=== PATIENT | female | born 1945 | race Caucasian/White ===

== ENCOUNTER 2018-09-01 05:23 | Inpatient (IN) | payer MEDICARE, SELFPAY ==
[2018-08-17 11:05] VITALS: BP 146/60; PULSE 69; RESP 16; TEMP 36.8; O2SAT 98; BMI 26.1
[2018-08-17 12:18] LABS: Absolute Lymphocyte Count 1.94 X10^3/ul (0.83-4.51); Absolute Neutrophil Count 4.3 X10^3/uL (2.0-7.7); Basophil# 0.03 X10^3/uL; Basophil% 0.4 % (0-1); Eosinophil# 0.27 X10^3/uL; Eosinophils% 3.7 % (0-5); Hematocrit 37.7 % (37-47); Hemoglobin 12.2 g/dl (12.0-15.0); Lymphocyte # 1.94 X10^3/ul (4.0); Lymphocyte % 26.9 % (19-41); Mean Corp Hgb Conc 32.4 g/gl (32-36); Mean Corpuscular Hgb 30.7 pg (27.0-32.0); Mean Platelet Vol. 10.5 fl (6.2-12.0); Monocyte% 9.7 % (0-10); Neutrophil # 4.26 X10^3/uL (2.7-7.7); Neutrophil % 59.2 % (47-70); POSITIVE COUNT NO; POSITIVE DIFFERENTIAL NO; POSITIVE MORPHOLOGY NO; Platelet Count 199 K/mm3 (150-450); RBC Distribution Width SD 46.4 fl (35.1-43.9); Red Blood Count 3.97 M/mm3 (4.2-5.4); White Blood Count 7.2 K/mm3 (4.4-11.0)
[2018-08-17 12:48] LABS: Anion Gap 7 (5-15); BUN 13 mg/dL (7-18); BUN/Creat Ratio 17.3 RATIO (10-20); Calcium,Total 8.8 mg/dL (8.5-10.1); Chloride 107 mmol/L (98-107); Creatinine, Serum 0.75 mg/dL (0.55-1.02); EST Glomerular Filtration Rate 80 mL/min (>60); Est Glom Filt Rate - Afr Amer 96 mL/min (>60); Estimated Creatinine Clearance 34.91 ml/min; Glucose 90 mg/dL (74-106); Potassium 4.4 mmol/L (3.5-5.1); Sodium Level 143 mmol/L (136-145)
--- NOTE | 2018-08-18 20:56 | PCM.HP.BLA ---
History and Physical DATE OF SURGERY: 09/01/2018 SCHEDULED PROCEDURE: Left total knee arthroplasty HISTORY OF PRESENT ILLNESS: This is a 73-year-old female whose been having ongoing pain for several years. Her pain is been intermittent, aching, and sharp. She has increased pain with going up and down stairs and sitting for extended periods of time. She feels weakness in the right knee. She has increased pain with prolonged walking. Pain is over the medial joint line bilaterally. She does have start up pain. Patient states the pain does waken her at night. Patient has tried previous corticosteroid injections with only 3 months of relief. She has had multiple injections. She has also tried rest, heat, home exercises with minimal relief. She has tried ice and elevation with no relief in symptoms. She has tried oral medications consisting of ibuprofen and Tylenol with minimal relief. Patient denies previous surgery on both knees. She has tried a brace with no relief in symptoms. Patient currently denies any chest pain, shortness of breath, fevers chills, recent infections. Patient has a medical history pertinent for hypertension, asthma, previous heart catheterization in May 2017 followed by aortic valve replacement on June 30, 2017. We'll obtain surgical clearance from patient's technical solutions engineer. We're also obtaining surgical clearance from patient's primary care physician Dr. Greer. After failing conservative measures and discussing all treatment options with Dr. Ehsan Watts, the patient does wish to proceed with a left total knee arthroplasty. REVIEW OF SYSTEMS: ROS: Const: Denies anorexia, anxiety, change in appetite, fever, hard of hearing, vision problems and weight change. CV: Denies chest pain, heart murmur, irregular heartbeat and peripheral vascular disease. Resp: Reports asthma, but denies cough, pneumonia, sleep apnea, SOB, tuberculosis and wheezing. GI: Denies constipation, diarrhea, difficulty swallowing, heartburn, nausea, bloody stools and vomiting. : Urinary: denies incontinence. Musculo: Denies leg swelling, limp, trouble walking and weakness. Skin: Denies Raynaud's, history of shingles and tattoo. Neuro: Denies ambulatory dysfunction, dizziness, numbness/tingling and tremor. Psych: Denies anxiety, depression, insomnia, mental illness and stress. Fredy/Lymph: Reports anemia, but denies bleeding/bruising tendency and past transfusion. Reviewed, no changes. PAST MEDICAL HISTORY: Advance Care Plan: Other Directive, P.O.A. Effective Date: 06/25/2018 Other Directive, LIVING WILL Effective Date: 06/25/2018 PMH: Medical Problems: Arthritis, Asthma, High Blood Pressure Accidents: Fracture - (1997) LT LEG Surgical Hx: Carpal Tunnel Release Lt, Carpal Tunnel Release Rt Rotator Cuff Repair Lt - (2001) HOWARD Rotator Cuff Repair RT - (2001) HOWARD Cyst - (1965) OVARIAN RT Second Hammer Toe Repair - (09/03/2012) JWG @ [facility] Aortic Valve Replaced Tonsillectomy - ADENOIDS Anesthesia Complications: None Assistive Devices: None Reviewed and updated. 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 Personal Habits: Smoking: Patient has never smoked.Cigarette Use: Never.Alcohol: Denies use.Drug Use: Denies Use.Enjoy Exercising: Daily. Reviewed, no changes. VITALS: Ht: 60.5 Wt: 136lb Wt k.690 BMI: 26.1 BP: 170/88 Pulse: 68 Resp: 20 T: 98.0 T: 36.7C ALLERGIES: No Known Drug Allergy MEDICATIONS: Meloxicam 15 mg 1 by mouth every day, Advair Diskus 500/50 twice daily, Aspirin 81 mg 1 po EVERY OTHER DAY, Calcium/Vitamin D 600mg 1 tab PO tid, Arthromend With MSM 1 PO bid, Vitamin C 1000mg 1 tab PO bid, Trazodone HCL 50 mg 1 tab PO qhs, Vitamin E 400 mg 1 tab PO tid, Ibuprofen 200 mg 2 tablets po for pain prn, Tylenol 325 mg as needed, Tramadol HCL 50 mg 1-2 by mouth every 4-6 hours as needed pain, Gabapentin 400 mg 1 cap PO tid, Ferrous Sulfate 325 (65 Fe) MG 1 tab PO daily, Carvedilol 12.5 mg 1 1/2 PO bid, Cyclobenzaprine HCL 5 mg 1 tab PO bid, Montelukast Sodium 10 mg 1 by mouth every day, Pantoprazole Sodium 40 mg 1 tab PO daily, Breo Ellipta 100-25 mcg/Inh 1 puff PO daily, Chlorthalidone 25 mg 1 tab by mouth every morning, Lasix 20 mg 1 by mouth every day, Loratadine 10 mg one PO daily PRE-OP EXAM: General appearance:NORMAL Other: Eyes: Conjunctivae and lids: NORMAL Pupils: ERR Ears, Nose, Mouth, and Throat: NORMAL Other: Inspection of lips, teeth and gums: NORMAL Other: Neck: Examination of neck: no masses noted. Respiratory: Assessment of respiratory effort: NORMAL Other: Auscultation of lungs: clear to auscultation no wheezes, rhonchi or rales. Cardiovascular: Auscultation of heart: regular rate and rhythm, no murmurs, gallops or rubs. Exam of carotid arteries: NORMAL Other: Gastrointestinal: Exam of abdomen: soft, nontender, nondistended bowel sounds present. PHYSICAL EXAMINATION: Patient walks with an antalgic gait. Patient's left knee is cool to touch without erythema. Patient does have effusion of the left knee. There is tenderness to palpation of the medial joint line. Patient does have varus alignment. Range of motion lacks 5 of extension to 110 of flexion. Stable to varus valgus stress test. Sensation intact to light touch. Neurovascularly intact. IMAGING STUDIES: X-rays of bilateral knees reveal varus alignment with medial joint space narrowing, subchondral sclerosis, osteophyte formation consistent with severe tricompartmental osteoarthritis bilaterally. IMPRESSION: 1. Severe left knee tricompartmental osteoarthritis 2. Severe right knee tricompartmental osteoarthritis 3. Hypertension 4. Asthma 5. History of heart catheterization and aortic valve replacement June 2017 PLAN: Dr. Watts did discuss and review with the patient all treatment options including surgical versus nonsurgical options. Patient does wish to proceed with the above-stated procedure. Potential risks, benefits, and complications of the procedure were discussed in detail including but not limited to , infection, nerve and blood vessel damage, persistent pain, numbness, tingling, paresthesias, blood clot, pulmonary embolism, and requirement for possible further surgery. The patient expressed full understanding and has no further questions for the doctor. Patient does agree to proceed with the above-stated procedure and has signed the surgery consent form. ___ I have re-examined the patient. There are no clinical changes since date of exam. ___ See progress notes for changes. ___ Dictated on admission Date: Time: Signature:
--- NOTE | 2018-08-27 10:42 | CASEMGMT ---
Call placed to patient's cell phone to discuss d/c needs after upcoming surgery. No answer, VM full, unable to leave message. Melissa Walsh LPN Clinical Support
[2018-09-01] VITALS (14 sets, daily range): BP systolic 98–152; BP diastolic 54–78; PULSE 65–77; RESP 16–18; TEMP 36.4–37.4; O2SAT 96–99; BMI 26.1; BMI 25.5
[2018-09-01] MEDS: oxyCODONE HCl Cr 10 MG Tablet PO (05:58)
[2018-09-01] MEDS: Celecoxib 200 MG Capsule 400 MG PO (05:58)
[2018-09-01] MEDS: Acetaminophen 500 MG Tablet 1000 MG PO ×3 (05:58→21:05)
[2018-09-01] MEDS: Scopolamine 1mg/72hr Patch 1 PATCH TD (07:10)
[2018-09-01] MEDS: Cefazolin 2 GM in 0.9% Normal Saline 100 ML IV (07:14)
--- NOTE | 2018-09-01 08:42 | PCM.OPRPT ---
Report of Operation Date of Procedure: 09/01/18 Pre-Operative Diagnosis: Left knee primary osteoarthritis Post-Operative Diagnosis: Left knee primary osteoarthritis Surgery/Procedure Performed:: Left cemented cruciate retaining total knee replacement Description of Surgical Findings:: Stable knee with good patella tracking editor index: Samuel Modi Type of Anesthesia:: Spinal Anesthesiologist: Cosme Cazares Special Medications: 2 g Ancef, 2 g TXA in wound at closure, 10 mg Decadron, joint cocktail (5 mg Duramorph, 30 mL of 0.5% Ropivicaine, 1000 units of epinephrine, 30 mg of Toradol) Specimen's removed: Bony cuts Estimated Blood Loss (mL): 50 Fluids Replaced: 1200 mL crystalloid Description of Procedure: Implants used: 1. Johnson size 2 triathlon cruciate retaining distal femoral component 2. Ashu size 2 universal tibial baseplate 3. Johnson X3 9 mm CS polyethylene 4. Johnson X3 29 mm asymmetric patella Brief history operative indications: 73-year-old f with history of left knee osteoarthritis with radiographic findings with loss of joint space, osteophyte formation and subchondral sclerosis. Failed conservative measures as mentioned in the H&P. Discussion of total knee arthroplasty as well as risk and benefits were discussed the patient including but not limited to blood loss, DVTs, PEs, neurovascular damage, general risk of anesthesia including loss of life, and stiffness or instability were discussed with patient. Patient demonstrated understanding and was able to sign informed consent. Procedure: On the date of procedure patient's left lower extremity was marked in the preoperative area. The patient was then taken back to the operating room where the patient was placed on the table in the supine position. All bony prominences were identified a well-padded. Anesthesia assumed control of the C-spine and airway and remained controlled throughout the remainder of the procedure. A tourniquet was placed on the left upper thigh and the leg was prepped in a sterile fashion. The surgeon then scrubbed at this time .Upon reentering the room left lower extremity was draped in a standard orthopedic fashion. A timeout was then called and everyone agreed upon the side, the site, the procedure to be performed, patient's identity and antibiotics given. Esmarch bandage was used to exsanguinate the extremity and the tourniquet was placed up to 250 mmHg with the knee in flexion. A midline skin incision was made and sharp dissection was taken down through skin subcutaneous tissue and fat. The standard medial parapatellar incision was made and the patella was subluxed laterally. The standard deep MCL release was done and the fat pad was resected. Next our attention was directed to the femur. Navigation pins were placed, navigation was registered. The distal femoral cutting block was pinned into place and 10 mm of distal femur resection was completed. The distal femoral cut was verified with navigation. The knee was then placed in deep flexion in the standard [employer] sizing guide was used to place the femoral component in 3? external rotation based on the posterior condyles. A size 2 4-in-1 cutting block was selected and pinned into place. The anterior cut was then made and checked for notching. The subsequent anterior chamfer cuts, posterior condylar cuts and posterior chamfer cuts were made while ensuring the MCL and LCL were protected. Our attention was then turned to the tibia where the navigation pins were placed, navigation was registered. [employer] tibial cutting guide was used to make the appropriate tibial cut 90 degrees from the mechanical axis. Navigation was then used to verify the cut. A size 2 tibial base plate was selected. the knee was flexed to 90 degrees and the soft tissues and posterior osteophytes were removed from the joint. 40 cc of the periarticular injection was injected into the posterior medial corner of the joint. The appropriate trials were then placed on the femur and tibia. A trial polyethylene was trialed to ensure proper balancing and stability of the knee. Patella tracking, was then verified and corrected appropriately as needed. The appropriate tibial internal rotation was then marked with a bovie. Our attention was then directed to the patella. The patella was everted and a flat resection was made. The lug holes were drilled and the patella trial was placed. Patellar tracking was checked and deemed appropriate. Once we were happy lug holes were drilled for the femur and trial components were removed. the tibia was subluxed and pinned into place and the keel was punched and the canal was reamed. Final components were verified and opened, and cement was mixed in a vacuum. Ashu Simplex cement was used. The wound was copiously irrigated with normal saline. When the cement was ready the components were cemented into place starting with the tibia, femur and finally the patella. The trial poly component was placed and the knee was placed in full extension. All excess cement was removed in the process. Once the cement had cured the tracking, alignment and balance were verified and a size 9 mm polyethylene component was placed. Once the final components were placed the wound was copiously irrigated with normal saline solution and the periarticular injection was given. The wound was closed in a layer buckley fashion using #1 vicryl interrupted sutures for the arthrotomy, 2-0 interrupted Vicryl suture for the subcuticular layer and macarena for final skin closure. A sterile compressive dressing was then placed. The patient was then awakened from anesthesia, transferred to the [facility] and transferred to the PACU for recovery. Post op plan DVT ppx: ASA 81mg, thigh high compression stockings Follow up: in office in 2 weeks for wound check PT: to start POD #0 at hospital, outpatient PT should be arranged. My physician pharmacist assistant was a vital part of this case. He was important in appropriate retraction during the case, and protection of soft tissues during bony cuts. His intimate knowledge of the case and my steps aided in safe and expedient completion of the procedure as well as appropriate position of the leg during the case. He was also vital in assisting with closure under my direct supervision. Grafts/Implants Used: Ashu triathlon total knee - Complications None - Admit VTE Documentation VTE Present on Admission: No VTE Mechan Device Prophylaxis: SCD's, Thigh High LISA Hose VTE Pharm Prophylaxis ordered?: Yes
--- NOTE | 2018-09-01 08:45 | OP.PCM_ITS ---
Report of Operation Date of Procedure: 09/01/18 Pre-Operative Diagnosis: Left knee primary osteoarthritis Post-Operative Diagnosis: Left knee primary osteoarthritis Surgery/Procedure Performed:: Left cemented cruciate retaining total knee replacement Description of Surgical Findings:: Stable knee with good patella tracking urgent care nurse practitioner: Samuel Modi Type of Anesthesia:: Spinal Anesthesiologist: Cosme Cazares Special Medications: 2 g Ancef, 2 g TXA in wound at closure, 10 mg Decadron, joint cocktail (5 mg Duramorph, 30 mL of 0.5% Ropivicaine, 1000 units of epinephrine, 30 mg of Toradol) Specimen's removed: Bony cuts Estimated Blood Loss (mL): 50 Fluids Replaced: 1200 mL crystalloid Description of Procedure: Implants used: 1. [place] size 2 triathlon cruciate retaining distal femoral component 2. Ashu size 2 universal tibial baseplate 3. [place] X3 9 mm CS polyethylene 4. [place] X3 29 mm asymmetric patella Brief history operative indications: 73-year-old f with history of left knee osteoarthritis with radiographic fin dings with loss of joint space, osteophyte formation and subchondral sclerosis. Failed conservative measures as mentioned in the H&P. Discussion of total knee arthroplasty as well as risk and benefits were discussed the patient including but not limited to blood loss, DVTs, PEs, neurovascular damage, general risk of anesthesia including loss of life, and stiffness or instability were discussed w ith patient. Patient demonstrated understanding and was able to sign informed consent. Procedure: On the date of procedure patient's left lower extremity was marked in the preoperative area. The patient was then taken back to the operating room where the patient was placed on the table in the supine position. All bony prominences were identified a well-padded. Anesthesia assumed control of the C-spine and airway and remained controlled throughout the remainder of the procedure. A tourniquet was placed on the left upper thigh and the leg was prepped in a sterile fashion. The surgeon then scrubbed at this time .Upon reentering the room left lower extremity was draped in a standard orthopedic fashion. A timeout was then called and everyone agreed upon the side, the site, the procedure to be performed, patient's identity and antibiotics given. Esmarch bandage was used to exsanguinate the extremity and the tourniquet was placed up to 250 mmHg with the knee in flexion. A midline skin incision was made and sharp dissection was taken down through skin subcutaneous tissue and fat. The standard medial parapatellar incision was made and the patella was subluxed laterally. The standard deep MCL release was done and the fat pad was resected. Next our attention was directed to the femur. Navigation pins were placed, navigation was registered. The distal femoral cutting block was pinned into place and 10 mm of distal femur resection was completed. The distal femoral cut was verified with navigation. The knee was then placed in deep flexion in the standard [employer] sizing guide was used to place the femoral component in 3? external rotation based on the posterior condyles. A size 2 4-in-1 cutting block was selected and pinned into place. The anterior cut was then made and checked for notching. The subsequent anterior chamfer cuts, posterior condylar cuts and posterior chamfer cuts were made while ensuring the MCL and LCL were protected. Our attention was then turned to the tibia where the navigation pins were placed, navigation was registered. [employer] tibial cutting guide was used to make the appropriate tibial cut 90 degrees from the mechanical axis. Navigation was then used to verify the cut. A size 2 tibial base plate was selected. the knee was flexed to 90 degrees and the soft tissues and posterior osteophytes were removed from the joint. 40 cc of the periarticular injection was injected into the posterior medial corner of the joint. The appropriate trials were then placed on the femur and tibia. A trial polyethylene was trialed to ensure proper balancing and stability of the knee. Patella tracking, was then verified and corrected appropriately as needed. The appropriate tibial internal rotation was then marked with a bovie. Our attention was then directed to the patella. The patella was everted and a flat resection was made. The lug holes were drilled and the patella trial was placed. Patellar tracking was checked and deemed appropriate. Once we were happy lug holes were drilled for the femur and trial components were removed. the tibia was subluxed and pinned into place and the keel was punched and the canal was reamed. Final components were verified and opened, and cement was mixed in a vacuum. [place] Simplex cement was used. The wound was copiously irrigated with normal saline. When the cement was ready the components were cemented into place starting with the tibia, femur and finally the patella. The trial poly component was placed and the knee was placed in full extension. All excess cement was removed in the process. Once the cement had cured the tracking, alignment and balance were verified and a size 9 mm polyethylene component was placed. Once the final components were placed the wound was copiously irrigated with normal saline solution and the periarticular injection was given. The wound was closed in a layer buckley fashion using #1 vicryl interrupted sutures for the arthrotomy, 2-0 interrupted Vicryl suture for the subcuticular layer and macarena for final skin closure. A sterile compressive dressing was then placed. The patient was then awakened from anesthesia, transferred to the [facility] and transferred to the PACU for recovery. Post op plan DVT ppx: ASA 81mg, thigh high compression stockings Follow up: in office in 2 weeks for wound check PT: to start POD #0 at hospital, outpatient PT should be arranged. My physician elementary assistant teacher was a vital part of this case. He was important in appropriate retraction during the case, and protection of soft tissues during bony cuts. His intimate knowledge of the case and my steps aided in safe and expedient completion of the procedure as well as appropriate position of the leg during the case. He was also vital in assisting with closure under my direct supervision. Grafts/Implants Used: [place] triathlon total knee - Complications None - Admit VTE Documentation VTE Present on Admission: No VTE Mechan Device Prophylaxis: SCD's, Thigh High LISA Hose VTE Pharm Prophylaxis ordered?: Yes
--- NOTE | 2018-09-01 09:20 | RAD_ITS ---
STUDY: X-RAY - LEFT KNEE REASON FOR EXAM: Postop. TECHNIQUE: 2 view(s) of the knee. COMPARISON: None. FINDINGS: There is a left total knee arthroplasty without evidence of complication. There are overlying skin macarena and postoperative gas in the soft tissues. There is vascular calcification. RAD/Knee 1 or 2 Views IMPRESSION: Uncomplicated left total knee arthroplasty. Electronically Signed: Adama Benson MD at 12:22 EDT Tel , Service support ,
[2018-09-01] MEDS: Lactated Ringers 1,000 ML 125 ML IV ×2 (13:01→14:58)
[2018-09-01] MEDS: Aspirin 81 MG TAB.CHEW PO ×2 (13:06→21:03)
[2018-09-01] MEDS: Furosemide 20 MG Tablet PO (13:07)
[2018-09-01] MEDS: Loratadine 10 MG Tablet PO (13:07)
[2018-09-01] MEDS: Famotidine 20 MG Tablet PO (13:07)
[2018-09-01] MEDS: Montelukast 10 MG Tablet PO (13:07)
[2018-09-01] MEDS: Vitamin E 400 UNITS Capsule PO (13:08)
[2018-09-01] MEDS: Gabapentin 400 MG Capsule PO ×2 (13:08→18:10)
[2018-09-01] MEDS: Multivitamins,Therapeutic Tablet 1 TABLET PO (13:08)
[2018-09-01] MEDS: Cefazolin 1 GM/50 ML BAG IV ×2 (14:58→22:32)
--- NOTE | 2018-09-01 15:45 | PCM.PN.HOSP ---
Subjective: 73 yo F with a h/o HTN, asthma, chronic back pain and b/l knee pain from OA presenting for a left total knee replacement which she had done on 09/01/18. She will have the right knee done in september. The left was done first because she states it was bone on bone. She is currently doing well with very little pain. She is able to feel her toes and denies any chest pain, SOB or lightheadedness. She states that prior to surgery her medical conditions were all stable. Vitals/I&O's: Vital Signs Temp Pulse Resp BP Pulse Ox 98.9 F 65 18 127/54 H 96 09/01/18 14:27 09/01/18 14:27 09/01/18 14:27 09/01/18 14:27 09/01/18 14:27 Oxygen Delivery Method Room Air Weight: 131 lb Body Mass Index (BMI) 25.5 Intake and Output for Last 24 Hours 08/30/18 08/31/18 09/01/18 23:59 23:59 23:59 Intake Total 2723 / 2723 Output Total 250 / 250 Balance 2473 / 2473 General: Alert, Oriented x3, Cooperative, No apparent distress HEENT: Atraumatic, PERRLA, EOMI, Normocephalic Oral: Dry Mucosa Neck: Supple, No JVD Lungs: Clear to auscultation, Normal air movement, No rhonchi, No wheeze, No rales Cardiovascular: Regular rate, Regular Rhythm, Normal S1, Normal S2, No murmurs Abdomen: Soft, Non Tender, Non-Distended, No Hepato-splenomegaly Extremities: No edema, Capillary Refill Less than 3 Seconds Musculoskeletal: Tenderness - to the left knee Neurological: Neuro grossly intact, Sensory exam intact to light touch and pain Psych/Mental Status: Normal Affect, Appropriate Current Medications Acetaminophen (Tylenol) 1,000 mg PO Q8 [facility] Last Admin: 09/01/18 13:08 Dose: 1,000 mg Albuterol Sulfate (Ventolin Aerosols) 2.5 mg INHALATION Q4H PRN PRN PRN Reason: ASTHMA Albuterol Sulfate (Ventolin Aerosols) 2.5 mg INHALATION Q6HWA.RT [facility] Ascorbic Acid (Vitamin C) 1,000 mg PO BID [facility] Aspirin (Aspirin, Baby) 81 mg PO BID [facility] Last Admin: 09/01/18 13:06 Dose: 81 mg Budesonide (Pulmicort Aerosol) 0.5 mg INHALATION Q12H.RT [facility] Calcium/Vitamin D (Os-Bertram 500mg + D) 1 tablet PO TIDCM [facility] Carvedilol (Coreg) 12.5 mg PO BID [facility] Cyclobenzaprine HCl (Cyclobenzaprine Hcl) 5 mg PO BID PRN PRN PRN Reason: BACK SPASMS Famotidine (Pepcid) 20 mg PO DAILY [facility] Last Admin: 09/01/18 13:07 Dose: 20 mg Ferrous Sulfate (Ferrous Sulfate) 325 mg PO DAILY@0800 [facility] Furosemide (Lasix) 20 mg PO BID [facility] Last Admin: 09/01/18 13:07 Dose: 20 mg Gabapentin (Neurontin) 400 mg PO TIDCM [facility] Last Admin: 09/01/18 13:08 Dose: 400 mg Cefazolin Sodium () 1 gm in 50 mls @ 150 mls/hr IV Q8H [facility] Stop: 09/01/18 23:19 Last Admin: 09/01/18 14:58 Dose: 150 mls/hr Lactated Ringer's () 1,000 mls @ 125 mls/hr IV .Q8H [facility] Last Admin: 09/01/18 14:58 Dose: 125 mls/hr Ketorolac Tromethamine (Toradol) 15 mg IV Q6H PRN PRN PRN Reason: MILD-MOD PAIN (1-5/10) Loratadine (Claritin) 10 mg PO DAILY [facility] Last Admin: 09/01/18 13:07 Dose: 10 mg [facility] Montelukast Sodium (Singulair) 10 mg PO DAILY [facility] Last Admin: 09/01/18 13:07 Dose: 10 mg Morphine Sulfate () 2 - 4 mg IV Q2H PRN PRN PRN Reason: SEVERE PAIN (6-10/10) Multivitamins (Multivitamin) 1 tablet PO DAILY@1200 [facility] Last Admin: 09/01/18 13:08 Dose: 1 tablet Nutritional Formula (Lactose Free) (Ensure Clear) 120 ml PO TIDCM [facility] Last Admin: 09/01/18 13:08 Dose: Not Given Ondansetron HCl (Zofran) 4 mg IV Q8H PRN PRN PRN Reason: NAUSEA Oxycodone HCl (Oxyir) 5 - 10 mg PO Q4H PRN PRN PRN Reason: MOD-SEVERE PAIN (4-10/10) Promethazine HCl (Phenergan) 12.5 mg IM Q6H PRN PRN; Protocol PRN Reason: NAUSEA/VOMITING Senna/Docusate Sodium (Senokot-S, Susie-Colace) 2 tablet PO BID [facility] Sodium Chloride () 5 - 30 ml IV UD PRN PRN Reason: SALINE FLUSH Trazodone HCl (Desyrel) 50 mg PO QHS [facility] Vitamin E (Vitamin E) 400 units PO DAILY [facility] Last Admin: 09/01/18 13:08 Dose: 400 units Medical Necessity - Tobacco Use Smoking Status: Never smoker Assessment/Plan 1. Left total knee replacement POD#0 - pain management and anticoagulation per primary - PT/OT 2. Asthma - stable - c/w her singulari and breo - Albuterol PRN 3. HTN - she is on coreg, and lasix - hold the lasix while on IVF - c/w aspirin 4. Back pain and knee pain from OA - Tramadol PRn at home, will hold here - Toradol and mobic, mobic is sheduled, will DC toradol for renal preservation - c/w flexeril and gabapentin, monitor renal function 5. Iron deficiency anemia - c/w vitamin C and ferrous sulfate - Stable 6. GERD - stable - on PPI at home, on pepcid here\ 7. Insomnia - C/w trazodone DVT: SCDs Diet: Regular Code Visit Inpatient E&M: 61539 Subs Hosp L3
--- NOTE | 2018-09-01 15:54 | PN_ITS ---
Subjective: 73 yo F with a h/o HTN, asthma, chronic back pain and b/l knee pain from OA presenting for a left total knee replacement which she had done on 09/01/18. She will have the right knee done in september. The left was done first because she states it was bone on bone. She is currently doing well with very little pain. She is able to feel her toes and denies any chest pain, SOB or lightheadedness. She states that prior to surgery her medical conditions were all stable. Vitals/I&O's: Vital Signs Temp Pulse Resp BP Pulse Ox 98.9 F 65 18 127/54 H 96 09/01/18 14:27 09/01/18 14:27 09/01/18 14:27 09/01/18 14:27 09/01/18 14:27 Oxygen Delivery Method Room Air Weight: 131 lb Body Mass Index (BMI) 25.5 Intake and Output for Last 24 Hours 08/30/18 08/31/18 09/01/18 23:59 23:59 23:59 Intake Total 2723 / 2723 Output Total 250 / 250 Balance 2473 / 2473 General: Alert, Oriented x3, Cooperative, No apparent distress HEENT: Atraumatic, PERRLA, EOMI, Normocephalic Oral: Dry Mucosa Neck: Supple, No JVD Lungs: Clear to auscultation, Normal air movement, No rhonchi, No wheeze, No rales Cardiovascular: Regular rate, Regular Rhythm, Normal S1, Normal S2, No murmurs Abdomen: Soft, Non Tender, Non-Distended, No Hepato-splenomegaly Extremities: No edema, Capillary Refill Less than 3 Seconds Musculoskeletal: Tenderness - to the left knee Neurological: Neuro grossly intact, Sensory exam intact to light touch and pain Psych/Mental Status: Normal Affect, Appropriate Current Medications Acetaminophen (Tylenol) 1,000 mg PO Q8 [facility] Last Admin: 09/01/18 13:08 Dose: 1,000 mg Albuterol Sulfate (Ventolin Aerosols) 2.5 mg INHALATION Q4H PRN PRN PRN Reason: ASTHMA Albuterol Sulfate (Ventolin Aerosols) 2.5 mg INHALATION Q6HWA.RT [facility] Ascorbic Acid (Vitamin C) 1,000 mg PO BID [facility] Aspirin (Aspirin, Baby) 81 mg PO BID [facility] Last Admin: 09/01/18 13:06 Dose: 81 mg Budesonide (Pulmicort Aerosol) 0.5 mg INHALATION Q12H.RT [facility] Calcium/Vitamin D (Os-Bertram 500mg + D) 1 tablet PO TIDCM [facility] Carvedilol (Coreg) 12.5 mg PO BID [facility] Cyclobenzaprine HCl (Cyclobenzaprine Hcl) 5 mg PO BID PRN PRN PRN Reason: BACK SPASMS Famotidine (Pepcid) 20 mg PO DAILY [facility] Last Admin: 09/01/18 13:07 Dose: 20 mg Ferrous Sulfate (Ferrous Sulfate) 325 mg PO DAILY@0800 [facility] Furosemide (Lasix) 20 mg PO BID [facility] Last Admin: 09/01/18 13:07 Dose: 20 mg Gabapentin (Neurontin) 400 mg PO TIDCM [facility] Last Admin: 09/01/18 13:08 Dose: 400 mg Cefazolin Sodium () 1 gm in 50 mls @ 150 mls/hr IV Q8H [facility] Stop: 09/01/18 23:19 Last Admin: 09/01/18 14:58 Dose: 150 mls/hr Lactated Ringer's () 1,000 mls @ 125 mls/hr IV .Q8H [facility] Last Admin: 09/01/18 14:58 Dose: 125 mls/hr Ketorolac Tromethamine (Toradol) 15 mg IV Q6H PRN PRN PRN Reason: MILD-MOD PAIN (1-5/10) Loratadine (Claritin) 10 mg PO DAILY [facility] Last Admin: 09/01/18 13:07 Dose: 10 mg [facility] Montelukast Sodium (Singulair) 10 mg PO DAILY [facility] Last Admin: 09/01/18 13:07 Dose: 10 mg Morphine Sulfate () 2 - 4 mg IV Q2H PRN PRN PRN Reason: SEVERE PAIN (6-10/10) Multivitamins (Multivitamin) 1 tablet PO DAILY@1200 [facility] Last Admin: 09/01/18 13:08 Dose: 1 tablet Nutritional Formula (Lactose Free) (Ensure Clear) 120 ml PO TIDCM [facility] Last Admin: 09/01/18 13:08 Dose: Not Given Ondansetron HCl (Zofran) 4 mg IV Q8H PRN PRN PRN Reason: NAUSEA Oxycodone HCl (Oxyir) 5 - 10 mg PO Q4H PRN PRN PRN Reason: MOD-SEVERE PAIN (4-10/10) Promethazine HCl (Phenergan) 12.5 mg IM Q6H PRN PRN; Protocol PRN Reason: NAUSEA/VOMITING Senna/Docusate Sodium (Senokot-S, Susie-Colace) 2 tablet PO BID [facility] Sodium Chloride () 5 - 30 ml IV UD PRN PRN Reason: SALINE FLUSH Trazodone HCl (Desyrel) 50 mg PO QHS [facility] Vitamin E (Vitamin E) 400 units PO DAILY [facility] Last Admin: 09/01/18 13:08 Dose: 400 units Medical Necessity - Tobacco Use Smoking Status: Never smoker Assessment/Plan 1. Left total knee replacement POD#0 - pain management and anticoagulation per primary - PT/OT 2. Asthma - stable - c/w her singulari and breo - Albuterol PRN 3. HTN - she is on coreg, and lasix - hold the lasix while on IVF - c/w aspirin 4. Back pain and knee pain from OA - Tramadol PRn at home, will hold here - Toradol and mobic, mobic is sheduled, will DC toradol for renal preservation - c/w flexeril and gabapentin, monitor renal function 5. Iron deficiency anemia - c/w vitamin C and ferrous sulfate - Stable 6. GERD - stable - on PPI at home, on pepcid here\ 7. Insomnia - C/w trazodone DVT: SCDs Diet: Regular Code Visit Inpatient E&M: 94170 Subs Hosp L3
--- NOTE | 2018-09-01 16:39 | PCA ---
obtained pts advanced directives, and living will, copies made and placed on chart
[2018-09-01] MEDS: Calcium Carb/Vitamin D 1 TABLET Tablet PO (18:10)
[2018-09-01] MEDS: oxyCODONE 5 MG Tablet PO (18:12)
[2018-09-01] MEDS: Budesonide Respules 0.5 MG/2 ML AMPUL.NEB. INHALATION (19:35)
[2018-09-01] MEDS: Albuterol 2.5 MG/3 ML VIAL.NEB. INHALATION (19:35)
[2018-09-01] MEDS: Morphine 2 MG/ML Syringe IV (20:18)
[2018-09-01] MEDS: Ascorbic Acid 500 MG Tablet 1000 MG PO (21:03)
[2018-09-01] MEDS: Carvedilol 12.5 MG Tablet PO (21:03)
[2018-09-01] MEDS: Senna/Docusate Sodium 1 Tablet 2 TABLET PO (21:03)
[2018-09-01] MEDS: traZODone 50 MG Tablet PO (21:03)
[2018-09-02] MEDS: oxyCODONE 5 MG Tablet PO ×2 (00:07→10:24)
[2018-09-02 02:14] VITALS: BP 128/65; PULSE 65; RESP 18; TEMP 36.9; O2SAT 95
[2018-09-02] MEDS: Acetaminophen 500 MG Tablet 1000 MG PO ×2 (06:04→13:09)
[2018-09-02 06:30] LABS: Hematocrit 31.1 % (37-47); Hemoglobin 10.1 g/dl (12.0-15.0); Mean Corp Hgb Conc 32.5 g/gl (32-36); Mean Corpuscular Hgb 30.9 pg (27.0-32.0); Mean Corpuscular Volume 95.1 fL (81-99); Mean Platelet Vol. 10.7 fl (6.2-12.0); Platelet Count 153 K/mm3 (150-450); Red Blood Count 3.27 M/mm3 (4.2-5.4); White Blood Count 8.7 K/mm3 (4.4-11.0)
[2018-09-02 06:34] LABS: Scan Indicated on CBC? Y/N NO
[2018-09-02 06:40] LABS: Anion Gap 5 (5-15); BUN 12 mg/dL (7-18); BUN/Creat Ratio 16.9 RATIO (10-20); Calcium,Total 7.7 mg/dL (8.5-10.1); Chloride 106 mmol/L (98-107); Creatinine, Serum 0.71 mg/dL (0.55-1.02); EST Glomerular Filtration Rate 85 mL/min (>60); Est Glom Filt Rate - Afr Amer 103 mL/min (>60); Estimated Creatinine Clearance 34.91 ml/min; Glucose 104 mg/dL (74-106); Potassium 4.2 mmol/L (3.5-5.1); Sodium Level 139 mmol/L (136-145)
[2018-09-02 07:10] VITALS: PULSE 76; RESP 20; O2SAT 92
[2018-09-02] MEDS: Albuterol 2.5 MG/3 ML VIAL.NEB. INHALATION ×2 (07:21→13:03)
[2018-09-02] MEDS: Budesonide Respules 0.5 MG/2 ML AMPUL.NEB. INHALATION (07:21)
--- NOTE | 2018-09-02 07:23 | PCM.PN.ORT ---
Subjective: The patient was sitting in bedside chair upon examination. Patient denies any chest pain, shortness of breath, dizziness, lightheadedness, nausea or vomiting, or calf pain. Pain is controlled on medications. No adverse overnight events. Patient overall is doing very well. She states she wants to go home today. Objective: Vital signs stable and afebrile. Patient is able to plantarflex and dorsiflex actively. Sensation is intact to light touch to saphenous, sural, superficial and deep peroneal, and tibial distribution. Dressing is with minimal drainage over the middle one third Negative Homans bilaterally, negative signs and symptoms of DVT. - Physical Exam General: Alert, Oriented x3, Cooperative, No apparent distress Vital Signs Temp Pulse Resp BP Pulse Ox 98.4 F 65 18 128/65 H 95 09/02/18 02:14 09/02/18 02:14 09/02/18 02:14 09/02/18 02:14 09/02/18 02:14 Oxygen Delivery Method Room Air Weight: 59.421 kg Body Mass Index (BMI) 25.5 Intake and Output for Last 24 Hours 08/31/18 09/01/18 09/02/18 23:59 23:59 23:59 Intake Total 3620 / 3620 240 / 240 Output Total 700 / 700 Balance 2920 / 2920 240 / 240 Laboratory Tests Past 24 Hrs 09/02/18 09/02/18 05:58 05:58 WBC 8.7 RBC 3.27 L Hgb 10.1 L Hct 31.1 L MCV 95.1 MCH 30.9 MCHC 32.5 RDW 14.0 RDW Differential 46.0 H Plt Count 153 MPV 10.7 Sodium 139 Potassium 4.2 Chloride 106 Carbon Dioxide 28.0 Anion Gap 5 BUN 12 Creatinine 0.71 Estim Creat Clear Calc 34.91 Est GFR (MDRD) Af Amer 103 Est GFR (MDRD) Non-Af 85 BUN/Creatinine Ratio 16.9 Glucose 104 Calcium 7.7 L Medical Necessity - Tobacco Use Smoking Status: Never smoker Assessment/Plan 1. S/P left total knee arthroplasty POD #1 2. Continue Pain Medications: Tylenol and OxyIR 3. DVT Prophylaxis: Aspirin 81 mg twice daily times 4 weeks 4. PT/OT: Weightbearing as tolerated 5. H & H: 10.1/31.1, asymptomatic 6. Encouraged Incentive Spirometry 7. Continue postoperative medical management per medicine 8. Disposition: Plan will be for possible discharge home today if pain is controlled and patient tolerates physical therapy. Prescriptions will be attached to chart. Patient will follow-up per postop instructions.
--- NOTE | 2018-09-02 07:29 | PCM.DC.TKR ---
Discharge Diet: No Restrictions Discharge Activity: May Not Drive May shower in (days): 1 - Turned dressing away from water Ice area for (Minutes): 20 - every hour while awake. Weight Bearing Status: Weight bearing as tolerated Elevate: Operative Extremity Additional Activity Instructions:: Wear elastic stockings for 2 weeks after your surgery. Call your doctor if your incision/area has: Continuous Slow Oozing, Sudden Increased Bleeding, Increased Pain/ Swelling, Increased Redness, Foul Smelling Discharge Call your doctor if you observe: Fever of 101 or Higher, Coldness, Increased Pain, Numbness or Tingling, Change in Color, Calf discomfort, Uncontrolled pain Remove Dressing in (days):: 4 - Okay to remove on September 06, 2018 Additional Instructions: Follow [facility] postop instructions Do not take any other anti-inflammatory medications including ibuprofen while taking the meloxicam 7.5 mg twice daily. Also do not take your meloxicam 15 mg for the next 30 days while on the meloxicam 7.5 mg twice daily. Allergies/Adverse Reactions: Allergies No Known Allergies Allergy (Verified 08/17/18 10:48) Medications to take at Discharge Calcium Carbonate/Vitamin D3 [Calcium 600-Vit D3 800 Caplet] 1 tab PO TID 09/04/15 Gabapentin [Neurontin] 400 mg PO TIDCM 09/04/15 Multivitamins,Therapeutic [Multivitamin] 1 tablet PO DAILY 09/04/15 Vitamin E 400 units PO DAILY 09/04/15 Albuterol IH (ProAir) [Proair Hfa] 2 puff INHALATION Q6H PRN PRN 08/17/18 Arthromend W/ Msm 1 tab PO BID 08/17/18 Ascorbic Acid [Vitamin C] 1,000 mg PO BID 08/17/18 Carvedilol [Coreg (Beta Carine)] 12.5 mg PO BID 08/17/18 Cyclobenzaprine HCl 5 mg PO BID PRN 08/17/18 Ferrous Sulfate 325 mg PO DAILY@0800 08/17/18 Fluticasone/Vilanterol [Breo Ellipta 100-25 Mcg INH] 1 each IH DAILY 08/17/18 Furosemide [Lasix] 20 mg PO BID 08/17/18 Loratadine [Allergy Relief] 10 mg PO DAILY 08/17/18 Montelukast Sodium [Singulair] 10 mg PO DAILY 08/17/18 Pantoprazole Sodium [Protonix] 40 mg PO DAILY 08/17/18 traZODone [Desyrel] 50 mg PO QHS 08/17/18 Acetaminophen [Tylenol] 1,000 mg PO Q8 #90 tab 09/02/18 Aspirin [Aspirin, Baby] 81 mg PO BID #60 tab.chew 09/02/18 Meloxicam [Mobic] 7.5 mg PO BIDCM #60 tab 09/02/18 Oxycodone [Oxyir] 5 - 10 mg PO Q4H PRN PRN 5 Days #60 tab 09/02/18 Senna/Docusate Sodium [Senokot-S] 2 tab PO BID #20 tab 09/02/18 The following prescriptions were given: Oxycodone [Oxyir] 5 - 10 mg PO Q4H PRN PRN 5 Days #60 tab PRN Reason: Mod-Severe Pain (4-09/02) Acetaminophen [Tylenol] 1,000 mg PO Q8 #90 tab Aspirin [Aspirin, Baby] 81 mg PO BID #60 tab.chew Meloxicam [Mobic] 7.5 mg PO BIDCM #60 tab Senna/Docusate Sodium [Senokot-S] 2 tab PO BID #20 tab Primary Care Physician: Jackson Greer DO [Primary Care Provider] - Test Results: Test results from this visit will be discussed in further detail at your follow-up appointment, if applicable. Please Follow Up With: [facility] physical therapy When: September 04, 2018 Please Follow Up With: Samuel Modi PA-C When: 09/14/18 @ 9:00 am
[2018-09-02 07:49] VITALS: BP 130/60; PULSE 79; RESP 16; TEMP 37.3; O2SAT 95
[2018-09-02] MEDS: Meloxicam 7.5 MG Tablet PO (07:59)
[2018-09-02] MEDS: Ferrous Sulfate 325 MG Tablet PO (07:59)
[2018-09-02] MEDS: Gabapentin 400 MG Capsule PO ×2 (07:59→13:09)
[2018-09-02] MEDS: Calcium Carb/Vitamin D 1 TABLET Tablet PO ×2 (07:59→13:09)
--- NOTE | 2018-09-02 09:04 | PCM.PN.HOSP ---
Subjective: Patient with no acute events overnight per self and per nursing report. Patient tolerating therapies well and ambulating with minimal assist with walker in her room. Patient notes pain is controlled. Patient's notes intention for outpatient physical therapy and possible discharge to home this evening. Patient denies fevers, chills, nausea, emesis, abdominal pain, chest pain or dyspnea. Objective: Physical Examination: General: awake, alert, oriented x 3 and cooperative, walking in room initially with walker, doing well. Skin: normal color, turgor, no icterus, cyanosis, s/p OR w/ LTKR, dressing in place. HEENT: AT/NC, EOMI, PERRLA, MMM. Lungs: CTA bilaterally, moderate effort, mild decrease BL bases, no rales, ronchi or wheezing. Heart: Regular rate and rhythm; no gallop, rub audible. Abdomen: soft, NTTP, ND, normal BS. Extremities: no cyanosis, clubbing, s/p OR w/ L TKR, dressing in place. Neurological: patient awake, alert, oriented x 3; cognitive function intact; pupils equally reactive to light and accomodation; cranial nerves II-XII grossly normal, moving all 4 extremities, limitation LLE expected, strength moderately globally decreased secondary to recent interventions. Psychiatric: affect appears normal, no acute evidence of depressive or anxiety feelings. Vitals/I&O's: Vital Signs Temp Pulse Resp BP Pulse Ox 99.1 F 79 16 130/60 H 95 09/02/18 07:49 09/02/18 07:49 09/02/18 07:49 09/02/18 07:49 09/02/18 07:49 Oxygen Delivery Method Room Air Weight: 131 lb Body Mass Index (BMI) 25.5 Intake and Output for Last 24 Hours 08/31/18 09/01/18 09/02/18 23:59 23:59 23:59 Intake Total 3620 / 3620 240 / 240 Output Total 700 / 700 Balance 2920 / 2920 240 / 240 Laboratory Results 09/02/18 05:58: WBC 8.7, RBC 3.27 L, Hgb 10.1 L, Hct 31.1 L, MCV 95.1, MCH 30.9, MCHC 32.5, RDW 14.0, RDW Differential 46.0 H, Plt Count 153, MPV 10.7 09/02/18 05:58: Sodium 139, Potassium 4.2, Chloride 106, Carbon Dioxide 28.0, Anion Gap 5, BUN 12, Creatinine 0.71, Estim Creat Clear Calc 34.91, Est GFR (MDRD) Af Amer 103, Est GFR (MDRD) Non-Af 85, BUN/Creatinine Ratio 16.9, Glucose 104, Calcium 7.7 L Current Medications Acetaminophen (Tylenol) 1,000 mg PO Q8 [facility] Last Admin: 09/02/18 06:04 Dose: 1,000 mg Albuterol Sulfate (Ventolin Aerosols) 2.5 mg INHALATION Q4H PRN PRN PRN Reason: ASTHMA Albuterol Sulfate (Ventolin Aerosols) 2.5 mg INHALATION Q6HWA.RT [facility] Last Admin: 09/02/18 07:21 Dose: 2.5 mg Ascorbic Acid (Vitamin C) 1,000 mg PO BID [facility] Last Admin: 09/01/18 21:03 Dose: 1,000 mg Aspirin (Aspirin, Baby) 81 mg PO BID [facility] Last Admin: 09/01/18 21:03 Dose: 81 mg Budesonide (Pulmicort Aerosol) 0.5 mg INHALATION Q12H.RT [facility] Last Admin: 09/02/18 07:21 Dose: 0.5 mg Calcium/Vitamin D (Os-Bertram 500mg + D) 1 tablet PO TIDCM [facility] Last Admin: 09/02/18 07:59 Dose: 1 tablet Carvedilol (Coreg) 12.5 mg PO BID [facility] Last Admin: 09/01/18 21:03 Dose: 12.5 mg Cyclobenzaprine HCl (Cyclobenzaprine Hcl) 5 mg PO BID PRN PRN PRN Reason: BACK SPASMS Famotidine (Pepcid) 20 mg PO DAILY [facility] Last Admin: 09/01/18 13:07 Dose: 20 mg Ferrous Sulfate (Ferrous Sulfate) 325 mg PO DAILY@0800 [facility] Last Admin: 09/02/18 07:59 Dose: 325 mg Gabapentin (Neurontin) 400 mg PO TIDCM [facility] Last Admin: 09/02/18 07:59 Dose: 400 mg Loratadine (Claritin) 10 mg PO DAILY [facility] Last Admin: 09/01/18 13:07 Dose: 10 mg Meloxicam (Mobic) 7.5 mg PO BIDCM [facility] Last Admin: 09/02/18 07:59 Dose: 7.5 mg Montelukast Sodium (Singulair) 10 mg PO DAILY [facility] Last Admin: 09/01/18 13:07 Dose: 10 mg Morphine Sulfate () 2 - 4 mg IV Q2H PRN PRN PRN Reason: SEVERE PAIN (6-10/10) Last Admin: 09/01/18 20:18 Dose: 2 mg Multivitamins (Multivitamin) 1 tablet PO DAILY@1200 [facility] Last Admin: 09/01/18 13:08 Dose: 1 tablet Nutritional Formula (Lactose Free) (Ensure Clear) 120 ml PO TIDCM [facility] Last Admin: 09/02/18 07:57 Dose: Not Given Ondansetron HCl (Zofran) 4 mg IV Q8H PRN PRN PRN Reason: NAUSEA Oxycodone HCl (Oxyir) 5 - 10 mg PO Q4H PRN PRN PRN Reason: MOD-SEVERE PAIN (4-10/10) Last Admin: 09/02/18 00:07 Dose: 10 mg Promethazine HCl (Phenergan) 12.5 mg IM Q6H PRN PRN; Protocol PRN Reason: NAUSEA/VOMITING Senna/Docusate Sodium (Senokot-S, Susie-Colace) 2 tablet PO BID [facility] Last Admin: 09/01/18 21:03 Dose: 2 tablet Sodium Chloride () 5 - 30 ml IV UD PRN PRN Reason: SALINE FLUSH Trazodone HCl (Desyrel) 50 mg PO QHS [facility] Last Admin: 09/01/18 21:03 Dose: 50 mg Vitamin E (Vitamin E) 400 units PO DAILY [facility] Last Admin: 09/01/18 13:08 Dose: 400 units Medical Necessity - Tobacco Use Smoking Status: Never smoker Assessment/Plan The patient is a 73 y/o F w/ PMHx: HTN, Asthma, Chronic OA w/ BL Knee and Back Pain, GERD, Chronic Insomnia who presents to the [facility] on 09/01/18 with ongoing L knee pain w/ planned L TKR per Dr. Watts. (1) Severe Osteoarthritis, L Knee: Failed conservative therapies and treatments, admitted per Dr. Watts for planned L TKR, post-operative pain management, bowel regimen, DVT Prophylaxis, PT/OT/CM per Orthopedic surgery discretion. Agree with discharge to home today if felt appropriate per Surgery primary service. (2) Chronic BL Knee, Back Pain, OA: Frequent position changes, fall precautions, continue usage walker. (3) Chronic asthma: Stable, maintained on budesonide, singulair, PRN albuterol. Encourage head of bed, IS. (4) Hypertension: Continue home regimen including Coreg, restart home Lasix, discontinue IV fluids. (5) Insomnia: Continue home low dose trazodone. (6) GERD: Famotidine. (7) DVT Prophylaxis: SCDs, ASA 81 mg BID per Orthopedic surgery discretion. Code Visit Inpatient E&M: 04095 Subs Hosp L2
--- NOTE | 2018-09-02 09:11 | PN_ITS ---
Subjective: Patient with no acute events overnight per self and per nursing report. Patient tolerating therapies well and ambulating with minimal assist with walker in her room. Patient notes pain is controlled. Patient's notes intention for outpatient physical therapy and possible discharge to home this evening. Patient denies fevers, chills, nausea, emesis, abdominal pain, chest pain or dyspnea. Objective: Physical Examination: General: awake, alert, oriented x 3 and cooperative, walking in room initially with walker, doing well. Skin: normal color, turgor, no icterus, cyanosis, s/p OR w/ LTKR, dressing in place. HEENT: AT/NC, EOMI, PERRLA, MMM. Lungs: CTA bilaterally, moderate effort, mild decrease BL bases, no rales, ronchi or wheezing. Heart: Regular rate and rhythm; no gallop, rub audible. Abdomen: soft, NTTP, ND, normal BS. Extremities: no cyanosis, clubbing, s/p OR w/ L TKR, dressing in place. Neurological: patient awake, alert, oriented x 3; cognitive function intact; pupils equally reactive to light and accomodation; cranial nerves II-XII grossly normal, moving all 4 extremities, limitation LLE expected, strength moderately globally decreased secondary to recent interventions. Psychiatric: affect appears normal, no acute evidence of depressive or anxiety feelings. Vitals/I&O's: Vital Signs Temp Pulse Resp BP Pulse Ox 99.1 F 79 16 130/60 H 95 09/02/18 07:49 09/02/18 07:49 09/02/18 07:49 09/02/18 07:49 09/02/18 07:49 Oxygen Delivery Method Room Air Weight: 131 lb Body Mass Index (BMI) 25.5 Intake and Output for Last 24 Hours 08/31/18 09/01/18 09/02/18 23:59 23:59 23:59 Intake Total 3620 / 3620 240 / 240 Output Total 700 / 700 Balance 2920 / 2920 240 / 240 Laboratory Results 09/02/18 05:58: WBC 8.7, RBC 3.27 L, Hgb 10.1 L, Hct 31.1 L, MCV 95.1, MCH 30.9, MCHC 32.5, RDW 14.0, RDW Differential 46.0 H, Plt Count 153, MPV 10.7 09/02/18 05:58: Sodium 139, Potassium 4.2, Chloride 106, Carbon Dioxide 28.0, Anion Gap 5, BUN 12, Creatinine 0.71, Estim Creat Clear Calc 34.91, Est GFR (MDRD) Af Amer 103, Est GFR (MDRD) Non-Af 85, BUN/Creatinine Ratio 16.9, Glucose 104, Calcium 7.7 L Current Medications Acetaminophen (Tylenol) 1,000 mg PO Q8 [facility] Last Admin: 09/02/18 06:04 Dose: 1,000 mg Albuterol Sulfate (Ventolin Aerosols) 2.5 mg INHALATION Q4H PRN PRN PRN Reason: ASTHMA Albuterol Sulfate (Ventolin Aerosols) 2.5 mg INHALATION Q6HWA.RT [facility] Last Admin: 09/02/18 07:21 Dose: 2.5 mg Ascorbic Acid (Vitamin C) 1,000 mg PO BID [facility] Last Admin: 09/01/18 21:03 Dose: 1,000 mg Aspirin (Aspirin, Baby) 81 mg PO BID [facility] Last Admin: 09/01/18 21:03 Dose: 81 mg Budesonide (Pulmicort Aerosol) 0.5 mg INHALATION Q12H.RT [facility] Last Admin: 09/02/18 07:21 Dose: 0.5 mg Calcium/Vitamin D (Os-Bertram 500mg + D) 1 tablet PO TIDCM [facility] Last Admin: 09/02/18 07:59 Dose: 1 tablet Carvedilol (Coreg) 12.5 mg PO BID [facility] Last Admin: 09/01/18 21:03 Dose: 12.5 mg Cyclobenzaprine HCl (Cyclobenzaprine Hcl) 5 mg PO BID PRN PRN PRN Reason: BACK SPASMS Famotidine (Pepcid) 20 mg PO DAILY [facility] Last Admin: 09/01/18 13:07 Dose: 20 mg Ferrous Sulfate (Ferrous Sulfate) 325 mg PO DAILY@0800 [facility] Last Admin: 09/02/18 07:59 Dose: 325 mg Gabapentin (Neurontin) 400 mg PO TIDCM [facility] Last Admin: 09/02/18 07:59 Dose: 400 mg Loratadine (Claritin) 10 mg PO DAILY [facility] Last Admin: 09/01/18 13:07 Dose: 10 mg Meloxicam (Mobic) 7.5 mg PO BIDCM [facility] Last Admin: 09/02/18 07:59 Dose: 7.5 mg Montelukast Sodium (Singulair) 10 mg PO DAILY [facility] Last Admin: 09/01/18 13:07 Dose: 10 mg Morphine Sulfate () 2 - 4 mg IV Q2H PRN PRN PRN Reason: SEVERE PAIN (6-10/10) Last Admin: 09/01/18 20:18 Dose: 2 mg Multivitamins (Multivitamin) 1 tablet PO DAILY@1200 [facility] Last Admin: 09/01/18 13:08 Dose: 1 tablet Nutritional Formula (Lactose Free) (Ensure Clear) 120 ml PO TIDCM [facility] Last Admin: 09/02/18 07:57 Dose: Not Given Ondansetron HCl (Zofran) 4 mg IV Q8H PRN PRN PRN Reason: NAUSEA Oxycodone HCl (Oxyir) 5 - 10 mg PO Q4H PRN PRN PRN Reason: MOD-SEVERE PAIN (4-10/10) Last Admin: 09/02/18 00:07 Dose: 10 mg Promethazine HCl (Phenergan) 12.5 mg IM Q6H PRN PRN; Protocol PRN Reason: NAUSEA/VOMITING Senna/Docusate Sodium (Senokot-S, Susie-Colace) 2 tablet PO BID [facility] Last Admin: 09/01/18 21:03 Dose: 2 tablet Sodium Chloride () 5 - 30 ml IV UD PRN PRN Reason: SALINE FLUSH Trazodone HCl (Desyrel) 50 mg PO QHS [facility] Last Admin: 09/01/18 21:03 Dose: 50 mg Vitamin E (Vitamin E) 400 units PO DAILY [facility] Last Admin: 09/01/18 13:08 Dose: 400 units Medical Necessity - Tobacco Use Smoking Status: Never smoker Assessment/Plan The patient is a 73 y/o F w/ PMHx: HTN, Asthma, Chronic OA w/ BL Knee and Back Pain, GERD, Chronic Insomnia who presents to the [facility] on 09/01/18 with ongoing L knee pain w/ planned L TKR per Dr. Watts. (1) Severe Osteoarthritis, L Knee: Failed conservative therapies and treatments, admitted per Dr. Watts for planned L TKR, post-operative pain management, bowel regimen, DVT Prophylaxis, PT/OT/CM per Orthopedic surgery discretion. Agree with discharge to home today if felt appropriate per Surgery primary service. (2) Chronic BL Knee, Back Pain, OA: Frequent position changes, fall precautions, continue usage walker. (3) Chronic asthma: Stable, maintained on budesonide, singulair, PRN albuterol. Encourage head of bed, IS. (4) Hypertension: Continue home regimen including Coreg, restart home Lasix, discontinue IV fluids. (5) Insomnia: Continue home low dose trazodone. (6) GERD: Famotidine. (7) DVT Prophylaxis: SCDs, ASA 81 mg BID per Orthopedic surgery discretion. Code Visit Inpatient E&M: 00626 Subs Hosp L2
--- NOTE | 2018-09-02 09:55 | CASEMGMT ---
VEENA GARCIA Face to Face with patient for initial transition planning/care coordination assessment. RN JOSE introduced self and role at [facility]. Patient sitting in chair, alert and oriented. Patient willing to participate in assessment and is able to answer all questions appropriately. Care providers, pharmacy, and demographics verified. Patient lives with in one story home and has crutches and walker at home. Patient wishes to discharge home and is setup with [facility] for outpatient therapy. Patient states he has no further needs or concerns at this time. CM to follow for discharge planning needs that may arise. Disposition Plan: Patient to discharge home with outpatient therapy, family support, and follow-up plans in place. Maryellen MENDOZA, RN, CM
[2018-09-02] MEDS: Aspirin 81 MG TAB.CHEW PO (10:17)
[2018-09-02] MEDS: Carvedilol 12.5 MG Tablet PO (10:17)
[2018-09-02] MEDS: Loratadine 10 MG Tablet PO (10:17)
[2018-09-02] MEDS: Senna/Docusate Sodium 1 Tablet 2 TABLET PO (10:18)
[2018-09-02] MEDS: Famotidine 20 MG Tablet PO (10:18)
[2018-09-02] MEDS: Furosemide 20 MG Tablet PO (10:18)
[2018-09-02] MEDS: Ascorbic Acid 500 MG Tablet 1000 MG PO (10:18)
[2018-09-02] MEDS: Montelukast 10 MG Tablet PO (10:18)
[2018-09-02] MEDS: Vitamin E 400 UNITS Capsule PO (10:19)
[2018-09-02 13:03] VITALS: PULSE 88; RESP 18
[2018-09-02] MEDS: Multivitamins,Therapeutic Tablet 1 TABLET PO (13:09)
[2018-09-02 16:44] VITALS: BP 124/61; PULSE 78; RESP 16; TEMP 37.2; O2SAT 98
[2018-09-02 16:49] VITALS: BP 124/61; PULSE 78; RESP 16; TEMP 37.1; O2SAT 98
== END 2018-09-02 18:21 | disposition home or self-care (01) | DRG 470 ==
LOC: ACINP 05:26 → MS3 08:50
PROVIDERS: Admitting Provider Specialist; Family Provider Family Medicine; PCP Family Medicine; Referring Provider Specialist; Visit Provider Family Medicine
PROC: 0SRD0J9 Replacement of Left Knee Joint with Synthetic Substitute, Cemented, Open Approach (ICD-10-PCS; CPT 27447; principal; 2018-09-01 06:45)
DX: M17.0 Bilateral primary osteoarthritis of knee (principal); J45.909 Unspecified asthma, uncomplicated; I10 Essential (primary) hypertension; D50.9 Iron deficiency anemia, unspecified; K21.9 Gastro-esophageal reflux disease without esophagitis; M47.9 Spondylosis, unspecified; Z95.2 Presence of prosthetic heart valve
CPT/HCPCS: 36415; 73560; 80048; 85025; 85027; 87081; 94640; 97110; 97161; 97165; 97530; C1776; J7120

== ENCOUNTER 2018-10-21 05:27 | Inpatient (IN) | payer MEDICARE, SELFPAY ==
[2018-09-01 10:27] VITALS: BMI 25.5
[2018-10-07 10:04] VITALS: BP 142/74; PULSE 67; RESP 16; TEMP 36.8; O2SAT 97; BMI 27.0
[2018-10-07 10:55] LABS: Absolute Neutrophil Count 5.4 X10^3/uL (2.0-7.7); Basophil# 0.04 X10^3/uL; Basophil% 0.5 % (0-1); Eosinophil# 0.13 X10^3/uL; Eosinophils% 1.6 % (0-5); Hematocrit 37.2 % (37-47); Hemoglobin 11.6 g/dl (12.0-15.0); Lymphocyte % 21.3 % (19-41); Mean Corp Hgb Conc 31.2 g/gl (32-36); Mean Corpuscular Hgb 30.1 pg (27.0-32.0); Mean Corpuscular Volume 96.4 fL (81-99); Mean Platelet Vol. 10.1 fl (6.2-12.0); Monocyte# 0.77 X10^3/uL; Monocyte% 9.6 % (0-10); Neutrophil # 5.36 X10^3/uL (2.7-7.7); Platelet Count 194 K/mm3 (150-450); RBC Distribution Width CV 15.2 % (11.6-14.6); RBC Distribution Width SD 53.8 fl (35.1-43.9); Red Blood Count 3.86 M/mm3 (4.2-5.4)
[2018-10-07 10:56] LABS: POSITIVE COUNT NO; POSITIVE DIFFERENTIAL NO; POSITIVE MORPHOLOGY NO
[2018-10-07 11:08] LABS: Anion Gap 7 (5-15); BUN 14 mg/dL (7-18); BUN/Creat Ratio 18.8 RATIO (10-20); Calcium,Total 8.5 mg/dL (8.5-10.1); Chloride 106 mmol/L (98-107); Creatinine, Serum 0.74 mg/dL (0.55-1.02); EST Glomerular Filtration Rate 81 mL/min (>60); Est Glom Filt Rate - Afr Amer 98 mL/min (>60); Estimated Creatinine Clearance 46.64 ml/min; Glucose 95 mg/dL (74-106); Sodium Level 143 mmol/L (136-145)
--- NOTE | 2018-10-08 11:06 | PCM.HP.BLA ---
History and Physical DATE OF SURGERY: 10/21/2018 SCHEDULED PROCEDURE: Right Total Knee Arthroplasty HISTORY OF PRESENT ILLNESS: This is a 73-year-old female who has been having ongoing pain in her right knee for several years. Patient recently underwent a left total knee arthroplasty on September 11, 2018 and is doing very well. Patient states her current right knee pain is 3-4/10. He can reach as high as a 9/10. Patient's pain is intermittent, sharp, stabbing. She has increased pain going up and down stairs, sitting for extended periods of time, and walking. Patient has tried ice, heat, elevation, and corticosteroid injections with minimal relief. Patient states she has lost 35 pounds with no relief in symptoms. She denies previous history of surgery on her right knee. Patient has tried a brace off and on with no relief in symptoms. He has been through physical therapy with regards to her left knee and continues to have ongoing pain with her right knee. Patient currently denies any chest pain, shortness of breath, fevers chills, recent infections. Patient has a medical history pertinent for hypertension, asthma, previous heart catheterization in May 2017 followed by aortic valve replacement on June 30, 2017. We have received surgical clearance from patient's home health care coordinator and primary care physician. After failing conservative measures and discussing all treatment options with Dr. Ehsan Watts, the patient would like to proceed with a right total knee arthroplasty. REVIEW OF SYSTEMS: ROS: Const: Denies anorexia, anxiety, change in appetite, fever, hard of hearing, vision problems and weight change. CV: Denies chest pain, heart murmur, irregular heartbeat and peripheral vascular disease. Resp: Reports asthma, but denies cough, pneumonia, sleep apnea, SOB, tuberculosis and wheezing. GI: Denies constipation, diarrhea, difficulty swallowing, heartburn, nausea, bloody stools and vomiting. : Genital:. (F Genital Sx) Urinary: denies incontinence. Musculo: Denies leg swelling, limp, trouble walking and weakness. Skin: Denies Raynaud's, history of shingles and tattoo. Neuro: Denies ambulatory dysfunction, dizziness, numbness/tingling and tremor. Psych: Denies anxiety, depression, insomnia, mental illness and stress. Fredy/Lymph: Reports anemia, but denies bleeding/bruising tendency and past transfusion. Reviewed, no changes. PAST MEDICAL HISTORY: Advance Care Plan: Other Directive, P.O.A. Effective Date: 06/25/2018 Other Directive, LIVING WILL Effective Date: 06/25/2018 PMH: Medical Problems: Arthritis, Asthma, High Blood Pressure Accidents: Fracture - (1997) LT LEG Surgical Hx: Carpal Tunnel Release Lt, Carpal Tunnel Release Rt Rotator Cuff Repair Lt - (2001) [facility] Rotator Cuff Repair RT - (2001) [facility] Cyst - (1965) OVARIAN RT Second Hammer Toe Repair - (09/03/2012) JWG @ [facility] Aortic Valve Replaced Tonsillectomy - ADENOIDS Knee Replacement LT - (09/01/2018) [email or web address] Anesthesia Complications: None Assistive Devices: None Reviewed, no changes. 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 Personal Habits: Smoking: Patient has never smoked.Cigarette Use: Never.Alcohol: Denies use.Drug Use: Denies Use.Enjoy Exercising: Daily. Reviewed, no changes. VITALS: Ht: 58 Wt: 134lb Wt k.782 BMI: 28.0 BP: 112/65 Pulse: 69 Resp: 18 T: 95.5 T: 35.3C ALLERGIES: No Known Drug Allergy MEDICATIONS: Aspirin 81 mg 1 tab PO daily, Calcium/Vitamin D 600mg 1 tab PO tid, Arthromend With MSM 1 PO bid, Vitamin C 1000mg 1 tab PO bid, Trazodone HCL 50 mg 1 tab PO qhs, Vitamin E 400 mg 1 tab PO tid, Tylenol 325 mg as needed, Tramadol HCL 50 mg 1-2 by mouth every 4-6 hours as needed pain, Gabapentin 400 mg 1 cap PO tid, Ferrous Sulfate 325 (65 Fe) MG 1 tab PO daily, Carvedilol 12.5 mg 1 1/2 tabs PO bid, Cyclobenzaprine HCL 5 mg 1 tab PO bid, Montelukast Sodium 10 mg 1 by mouth every day, Pantoprazole Sodium 40 mg 1 tab PO daily, Breo Ellipta 100-25 mcg/Inh 1 puff PO daily, Chlorthalidone 25 mg 1 tab by mouth every morning, Lasix 20 mg 1 by mouth every day, Loratadine 10 mg one PO daily, Ventolin Inhaler prn PRE-OP EXAM: General appearance:NORMAL Other: Eyes: Conjunctivae and lids: NORMAL Pupils: ERR Ears, Nose, Mouth, and Throat: NORMAL Other: Inspection of lips, teeth and gums: NORMAL Other: Neck: Examination of neck: no masses noted. Respiratory: Assessment of respiratory effort: NORMAL Other: Auscultation of lungs: clear to auscultation no wheezes, rhonchi or rales. Cardiovascular: Auscultation of heart: regular rate and rhythm, no murmurs, gallops or rubs. Exam of carotid arteries: NORMAL Other: Gastrointestinal: Exam of abdomen: soft, nontender, nondistended bowel sounds present. PHYSICAL EXAMINATION: Right knee is cool to touch without erythema. Patient does walk with an antalgic gait with the right leg. Tenderness to palpation of the medial joint line. Patient does have correctable varus alignment. Range of motion right knee: Lacks 5 of extension to 115 flexion. Patient with positive crepitus on range of motion. Sensation intact to light touch. Neurovascularly intact. Left knee incision well-healed without erythema or signs of infection. IMAGING STUDIES: X-rays of the right knee were obtained that was [facility] which reveals varus alignment. There is joint space narrowing medially with subchondral sclerosis and osteophyte formation consistent with severe tricompartmental osteoarthritis. IMPRESSION: 1. Severe tricompartmental right knee osteoarthritis 2. Status post left total knee arthroplasty 3. Hypertension 4. Asthma 5. History of heart catheterization and aortic valve replacement in June 2017 PLAN: Dr. Ehsan Watts did discuss and review with the patient all treatment options including surgical versus nonsurgical options. Patient does wish to proceed with the above-stated procedure. Potential risks, benefits, and complications of the procedure were discussed in detail including but not limited to , infection, nerve and blood vessel damage, persistent pain, numbness, tingling, paresthesias, blood clot, pulmonary embolism, and requirement for possible further surgery. The patient expressed full understanding and has no further questions for the doctor. Patient does agree to proceed with the above-stated procedure and has signed the surgery consent form. This dictation was created using voice recognition software. Phonetic and/or grammatical errors may exist.. ___ I have re-examined the patient. There are no clinical changes since date of exam. ___ See progress notes for changes. ___ Dictated on admission Date: Time: Signature:
[2018-10-21] VITALS (13 sets, daily range): BP systolic 76–168; BP diastolic 44–90; PULSE 68–86; RESP 16–18; TEMP 36.3–36.9; O2SAT 94–100; BMI 27.0; BMI 26.9
[2018-10-21] MEDS: Acetaminophen 500 MG Tablet 1000 MG PO ×3 (06:01→21:54)
[2018-10-21] MEDS: Celecoxib 200 MG Capsule 400 MG PO (06:02)
[2018-10-21] MEDS: Lactated Ringers 1,000 ML 999 ML IV (06:35)
[2018-10-21] MEDS: Cefazolin 2 GM in 0.9% Normal Saline 100 ML IV (07:24)
--- NOTE | 2018-10-21 08:36 | PCM.OPRPT ---
Report of Operation Date of Procedure: 10/21/18 Pre-Operative Diagnosis: Right knee primary osteoarthritis Post-Operative Diagnosis: Right knee primary osteoarthritis Surgery/Procedure Performed:: Right total knee replacement Description of Surgical Findings:: Stable knee with good patella tracking Cemented cruciate retaining total knee replacement law writer: Clarice Montesinos Type of Anesthesia:: Spinal Anesthesiologist: Dylan Tello Special Medications: 2 g Ancef, 1 g TXA at incision, 1 g TXA closure, 10 mg Decadron, joint cocktail (5 mg Duramorph, 30 mL of 0.5% Ropivicaine, 1000 units of epinephrine, 30 mg of Toradol) Specimen's removed: Bony cuts Estimated Blood Loss (mL): 25 Fluids Replaced: 1200 ml crystalloid Description of Procedure: Implants used: 1. [place] size 2 triathlon cruciate retaining distal femoral component 2. [place] size 2 universal tibial baseplate 3. [place] X3 9 mm CS polyethylene 4. [place] X3 29 mm asymmetric patella Brief history operative indications: 73-year-old f with history of right knee osteoarthritis with radiographic findings with loss of joint space, osteophyte formation and subchondral sclerosis. Failed conservative measures as mentioned in the H&P. Discussion of total knee arthroplasty as well as risk and benefits were discussed the patient including but not limited to blood loss, DVTs, PEs, neurovascular damage, general risk of anesthesia including loss of life, and stiffness or instability were discussed with patient. Patient demonstrated understanding and was able to sign informed consent. Procedure: On the date of procedure patient's right lower extremity was marked in the preoperative area. The patient was then taken back to the operating room where the patient was placed on the table in the supine position. All bony prominences were identified a well-padded. Anesthesia assumed control of the C-spine and airway and remained controlled throughout the remainder of the procedure. A tourniquet was placed on the right upper thigh and the leg was prepped in a sterile fashion. The surgeon then scrubbed at this time. Upon reentering the room the right lower extremity was draped in a standard orthopedic fashion. A timeout was then called and everyone agreed upon the side, the site, the procedure to be performed, patient's identity and antibiotics given. Esmarch bandage was used to exsanguinate the extremity and the tourniquet was placed up to 250 mmHg with the knee in flexion. A midline skin incision was made and sharp dissection was taken down through skin subcutaneous tissue and fat. The standard medial parapatellar incision was made and the patella was subluxed laterally. The standard deep MCL release was done and the fat pad was resected. Next our attention was directed to the femur. Navigation pins were placed, navigation was registered. The distal femoral cutting block was pinned into place and 9 mm of distal femur resection was completed. The distal femoral cut was verified with navigation. The knee was then placed in deep flexion in the standard Duplia sizing guide was used to place the femoral component in 3? external rotation based on the posterior condyles. A size 2 4-in-1 cutting block was selected and pinned into place. The anterior cut was then made and checked for notching. The subsequent anterior chamfer cuts, posterior condylar cuts and posterior chamfer cuts were made while ensuring the MCL and LCL were protected. Our attention was then turned to the tibia. [employer] tibial cutting guide was used to make the appropriate tibial cut 90 degrees from the mechanical axis. A size 2 tibial base plate was selected. the knee was flexed to 90 degrees and the soft tissues and posterior osteophytes were removed from the joint. 40 cc of the periarticular injection was injected into the posterior medial corner of the joint. The appropriate trials were then placed on the femur and tibia. A trial polyethylene was trialed to ensure proper balancing and stability of the knee. Patella tracking, was then verified and corrected appropriately as needed. The appropriate tibial internal rotation was then marked with a bovie. Our attention was then directed to the patella. The patella was everted and a flat resection was made. Depth caliper was used to verify the patella was at least 10 mm in thickness due to the patient's excessive patella wear and small patella to begin with.. The lug holes were drilled and the patella trial was placed. Patellar tracking was checked and deemed appropriate. Once we were happy lug holes were drilled for the femur and trial components were removed. the tibia was subluxed and pinned into place and the keel was punched and the canal was reamed. Final components were verified and opened, and cement was mixed in a vacuum. [place] Simplex cement was used. The wound was copiously irrigated with normal saline. When the cement was ready the components were cemented into place starting with the tibia, femur and finally the patella. The trial poly component was placed and the knee was placed in full extension. All excess cement was removed in the process. Once the cement had cured the tracking, alignment and balance were verified and a size 9 mm polyethylene component was placed. Once the final components were placed the wound was copiously irrigated with normal saline solution and the periarticular injection was given. The wound was closed in a layer buckley fashion using #1 vicryl interrupted sutures for the arthrotomy, 2-0 interrupted Vicryl suture for the subcuticular layer and macarena for final skin closure. A sterile compressive dressing was then placed. The patient was then awakened from anesthesia, transferred to the [place] and transferred to the PACU for recovery. Post op plan DVT ppx: ASA 81mg, thigh high compression stockings Follow up: in office in 2 weeks for wound check PT: to start POD #0 at hospital, outpatient PT should be arranged. Grafts/Implants Used: [place] triathlon cemented total knee - Complications None - Admit VTE Documentation VTE Present on Admission: No VTE Mechan Device Prophylaxis: SCD's, Thigh High LISA Hose VTE Pharm Prophylaxis ordered?: Yes
--- NOTE | 2018-10-21 08:42 | OP.PCM_ITS ---
Report of Operation Date of Procedure: 10/21/18 Pre-Operative Diagnosis: Right knee primary osteoarthritis Post-Operative Diagnosis: Right knee primary osteoarthritis Surgery/Procedure Performed:: Right total knee replacement Description of Surgical Findings:: Stable knee with good patella tracking Cemented cruciate retaining total knee replacement program and research coordinator: Clarice Montesinos Type of Anesthesia:: Spinal Anesthesiologist: Dylan Tello Special Medications: 2 g Ancef, 1 g TXA at incision, 1 g TXA closure, 10 mg Decadron, joint cocktail (5 mg Duramorph, 30 mL of 0.5% Ropivicaine, 1000 units of epinephrine, 30 mg of Toradol) Specimen's removed: Bony cuts Estimated Blood Loss (mL): 25 Fluids Replaced: 1200 ml crystalloid Description of Procedure: Implants used: 1. [place] size 2 triathlon cruciate retaining distal femoral component 2. [place] size 2 universal tibial baseplate 3. [place] X3 9 mm CS polyethylene 4. [place] X3 29 mm asymmetric patella Brief history operative indications: 73-year-old f with history of right knee osteoarthritis with radiographic findings with loss of joint space, osteophyte formation and subchondral sclerosis. Failed conservative measures as mentioned in the H&P. Discussion of total knee arthroplasty as well as risk and benefits were discussed the patient including but not limited to blood loss, DVTs, PEs, neurovascular damage, general risk of anesthesia including loss of life, and stiffness or instability were discussed with patient. Patient demonstrated understanding and was able to sign informed consent. Procedure: On the date of procedure patient's right lower extremity was marked in the preoperative area. The patient was then taken back to the operating room where the patient was placed on the table in the supine position. All bony prominences were identified a well-padded. Anesthesia assumed control of the C-spine and airway and remained controlled throughout the remainder of the procedure. A tourniquet was placed on the right upper thigh and the leg was prepped in a zahida rile fashion. The surgeon then scrubbed at this time. Upon reentering the room the right lower extremity was draped in a standard orthopedic fashion. A timeout was then called and everyone agreed upon the side, the site, the procedure to be performed, patient's identity and antibiotics given. Esmarch bandage was used to exsanguinate the extremity and the tourniquet was placed up to 250 mmHg with the knee in flexion. A midline skin incision was made and sharp dissection was taken down through skin subcutaneous tissue and fat. The standard medial parapatellar incision was made and the patella was subluxed laterally. The standard deep MCL release was done and the fat pad was resected. Next our attention was directed to the femur. Navigation pins were placed, navigation was registered. The distal femoral cutting block was pinned into place and 9 mm of distal femur resection was completed. The distal femoral cut was verified with navigation. The knee was then placed in deep flexion in the standard Doximity sizing guide was used to place the femoral component in 3? external rotation based on the posterior condyles. A size 2 4-in-1 cutting block was selected and pinned into place. The anterior cut was then made and checked for notching. The subsequent anterior chamfer cuts, posterior condylar cuts and posterior chamfer cuts were made while ensuring the MCL and LCL were protected. Our attention was then turned to the tibia. [employer] tibial cutting guide was used to make the appropriate tibial cut 90 degrees from the mechanical axis. A size 2 tibial base plate was selected. the knee was flexed to 90 degrees and the soft tissues and posterior osteophytes were removed from the joint. 40 cc of the periarticular injection was injected into the posterior medial corner of the joint. The appropriate trials were then placed on the femur and tibia. A trial polyethylene was trialed to ensure proper balancing and stability of the knee. Patella tracking, was then verified and corrected appropriately as needed. The appropriate tibial internal rotation was then marked with a bovie. Our attention was then directed to the patella. The patella was everted and a flat resection was made. Depth caliper was used to verify the patella was at least 10 mm in thickness due to the patient's excessive patella wear and small patella to begin with.. The lug holes were drilled and the patella trial was placed. Patellar tracking was checked and deemed appropriate. Once we were happy lug holes were drilled for the femur and trial components were removed. the tibia was subluxed and pinned into place and the keel was punched and the canal was reamed. Final components were verified and opened, and cement was mixed in a vacuum. Ashu Simplex cement was used. The wound was copiously irrigated with normal saline. When the cement was ready the components were cemented into place starting with the tibia, femur and finally the patella. The trial poly component was placed and the knee was placed in full extension. All excess cement was removed in the process. Once the cement had cured the tracking, alignment and balance were verified and a size 9 mm polyethylene component was placed. Once the final components were placed the wound was copiously irrigated with normal saline solution and the periarticular injection was given. The wound was closed in a layer buckley fashion using #1 vicryl interrupted sutures for the arthrotomy, 2-0 interrupted Vicryl suture for the subcuticular layer and macarena for final skin closure. A sterile compressive dressing was then placed. The eva ent was then awakened from anesthesia, transferred to the rmarble and transferred to the PACU for recovery. Post op plan DVT ppx: ASA 81mg, thigh high compression stockings Follow up: in office in 2 weeks for wound check PT: to start POD #0 at hospital, outpatient PT should be arranged. Grafts/Implants Used: Ashu triathlon cemented total knee - Complications None - Admit VTE Documentation VTE Present on Admission: No VTE Mechan Device Prophylaxis: SCD's, Thigh High LISA Hose VTE Pharm Prophylaxis ordered?: Yes
--- NOTE | 2018-10-21 08:56 | RAD_ITS ---
STUDY: X-RAY - RIGHT KNEE REASON FOR EXAM: Female, 73 years old. Total knee replacement. TECHNIQUE: 2 view(s) of the knee. COMPARISON: None. FINDINGS: The patient is status post total knee replacement. There is good alignment. Postoperative soft tissue changes. RAD/Knee 1 or 2 Views IMPRESSION: Total knee replacement. There is good alignment. Postoperative soft tissue changes. Electronically Signed: Navid Johansen MD at 12:11 EST Tel [phone], Service support ,
[2018-10-21] MEDS: Scopolamine 1mg/72hr Patch 1 PATCH TD (11:03)
[2018-10-21] MEDS: Lactated Ringers 1,000 ML 125 ML IV (11:04)
[2018-10-21] MEDS: Chlorthalidone 50 MG Tablet 25 MG PO (11:06)
[2018-10-21] MEDS: Furosemide 20 MG Tablet PO (11:06)
[2018-10-21] MEDS: Ferrous Sulfate 325 MG Tablet PO (11:07)
[2018-10-21] MEDS: Multivitamins,Therapeutic Tablet 1 TABLET PO (11:08)
[2018-10-21] MEDS: Famotidine 20 MG Tablet PO (11:08)
--- NOTE | 2018-10-21 12:13 | PCM.CONS.GEN ---
Reason for Consult History of Present Illness: The patient is a 73 year old F [] Past Medical History Allergies No Known Allergies Allergy (Verified 10/07/18 09:51) Home Medications: Ambulatory Orders Medication Instructions Recorded Calcium Carbonate/Vitamin D3 1 tab PO TID 09/04/15 [Calcium 600-Vit D3 800 Caplet] Gabapentin [Neurontin] 400 mg PO TIDCM 09/04/15 Multivitamins,Therapeutic 1 tablet PO DAILY 09/04/15 [Multivitamin] Vitamin E 400 units PO DAILY 09/04/15 Albuterol IH (ProAir) [Proair Hfa] 2 puff INHALATION Q6H PRN PRN 08/17/18 Arthromend W/ Msm 1 tab PO BID 08/17/18 Ascorbic Acid [Vitamin C] 1,000 mg PO BID 08/17/18 Carvedilol [Coreg (Beta Carine)] 18.75 mg PO BID 08/17/18 Cyclobenzaprine HCl 5 mg PO BID PRN 08/17/18 Ferrous Sulfate 325 mg PO DAILY@0800 08/17/18 Fluticasone/Vilanterol [Breo 1 each IH DAILY 08/17/18 Ellipta 100-25 Mcg INH] Furosemide [Lasix] 20 mg PO DAILY 08/17/18 Loratadine [Allergy Relief] 10 mg PO DAILY 08/17/18 Montelukast Sodium [Singulair] 10 mg PO DAILY 08/17/18 Pantoprazole Sodium [Protonix] 40 mg PO DAILY 08/17/18 traZODone [Desyrel] 50 mg PO QHS 08/17/18 Acetaminophen [Tylenol] 325 mg PO Q8 10/07/18 Aspirin [Aspirin, Baby] 81 mg PO DAILY 10/07/18 Chlorthalidone 25 mg PO DAILY 10/07/18 traMADol [Ultram (G)] 50 - 100 mg PO Q4H PRN PRN 10/07/18 Smoking Status: Never smoker - Physical Exam Vital Signs Temp Pulse Resp BP Pulse Ox 98.1 F 78 18 144/73 H 99 10/21/18 12:09 10/21/18 12:09 10/21/18 12:09 10/21/18 12:09 10/21/18 12:09 Oxygen Delivery Method Room Air Weight: 133 lb 13.129 oz Body Mass Index (BMI) 26.9 Intake and Output for Last 24 Hours 10/19/18 10/20/18 10/21/18 23:59 23:59 23:59 Intake Total 1400 / 1400 Balance 1399 / 1399
--- NOTE | 2018-10-21 13:18 | CPS ---
to bring incentive in, it is in the car. pt does not want another one. pt states she knows what it is for and knows how to do it.
[2018-10-21] MEDS: Gabapentin 400 MG Capsule PO ×2 (13:44→18:23)
[2018-10-21] MEDS: Calcium Carb/Vitamin D 1 TABLET Tablet PO ×2 (13:45→18:23)
--- NOTE | 2018-10-21 14:52 | PCM.PN.HOSP ---
Subjective: Patient is a 73 y/o female with a PMH of HTN and osteoarthritis s/o left total knee replacement. She was admitted by orthopedics after she had right total knee replacement on 10/21/18. Hospitalist service was consulted for medical management. Patient seen and examined. She had no complaints and felt well. She denied any fever, chills, cough, chest pain, SOB, abdominal pain, diarrhea or vomiting. Review of systems was otherwise negative. Labs and virals reviewed. Home meds reviewed and reconciled. Pain was well controlled. Vitals/I&O's: Vital Signs Temp Pulse Resp BP Pulse Ox 98.1 F 78 17 144/73 H 99 10/21/18 12:09 10/21/18 12:09 10/21/18 13:16 10/21/18 12:09 10/21/18 13:16 Oxygen Delivery Method Room Air Weight: 133 lb 13.129 oz Body Mass Index (BMI) 26.9 Intake and Output for Last 24 Hours 10/19/18 10/20/18 10/21/18 23:59 23:59 23:59 Intake Total 1400 / 1400 Balance 1400 / 1400 General: Alert, Oriented x3, Cooperative, No apparent distress HEENT: Atraumatic, PERRLA, EOMI, Normocephalic Oral: Moist Mucosa Neck: Supple, No JVD, Negative Carotid Bruits Lungs: Clear to auscultation, Normal air movement, No rhonchi, No wheeze, No rales Cardiovascular: Regular rate, Regular Rhythm, Normal S1, Normal S2, No murmurs Abdomen: Bowel Sounds Present, Soft, Non Tender, Non-Distended, No Hepato-splenomegaly Extremities: No edema, Capillary Refill Less than 3 Seconds Skin: No rashes, No breakdown Musculoskeletal: - - right knee bandaged; dressing is clean and dry Lymphatic: No Cervical, Supraclavicular, or Inguinal Adenopathy Neurological: Cranial nerves II-XII grossly intact, Neuro grossly intact Psych/Mental Status: Normal Affect, Appropriate, Alert and oriented to time, place, person, mood and affect Current Medications Acetaminophen (Tylenol) 1,000 mg PO Q8 [facility] Last Admin: 10/21/18 13:44 Dose: 1,000 mg Albuterol Sulfate (Ventolin Aerosols) 2.5 mg INHALATION Q4H PRN PRN Reason: SOB/WHEEZING Ascorbic Acid (Vitamin C) 1,000 mg PO BID [facility] Last Admin: 10/21/18 10:52 Dose: Not Given Aspirin ([facility]in, Baby) [facility] Calcium/Vitamin D (Os-Bertram 500mg + D) 1 tablet PO TIDCM [facility] Last Admin: 10/21/18 13:45 Dose: 1 tablet Carvedilol (Coreg) 12.5 mg PO BID [facility] Carvedilol (Coreg) 6.25 mg PO BID [facility] Chlorthalidone (Hygroton) 25 mg PO DAILY [facility] Last Admin: 10/21/18 11:06 Dose: 25 mg Cyclobenzaprine HCl (Cyclobenzaprine Hcl) 5 mg PO BID PRN PRN Reason: BACK SPASMS Famotidine (Pepcid) 20 mg PO DAILY [facility] Last Admin: 10/21/18 11:08 Dose: 20 mg Ferrous Sulfate (Ferrous Sulfate) 325 mg PO DAILY@1200 [facility] Last Admin: 10/21/18 11:07 Dose: 325 mg Furosemide (Lasix) 20 mg PO DAILY [facility] Last Admin: 10/21/18 11:06 Dose: 20 mg Gabapentin (Neurontin) 400 mg PO TIDCM [facility] Last Admin: 10/21/18 13:44 Dose: 400 mg Cefazolin Sodium () 1 gm in 50 mls @ 150 mls/hr IV Q8H [facility] Stop: 10/21/18 23:49 Lactated Ringer's () 1,000 mls @ 125 mls/hr IV .Q8H [facility] Last Admin: 10/21/18 11:04 Dose: 125 mls/hr Ketorolac Tromethamine (Toradol) 15 mg IV Q6H PRN PRN PRN Reason: MILD-MOD PAIN (1-5/10) Loratadine (Claritin) 10 mg PO DAILY [facility] Meloxicam (Mobic) 7.5 mg PO BID [facility] Last Admin: 10/21/18 10:53 Dose: Not Given Montelukast Sodium (Singulair) 10 mg PO HS [facility] Morphine Sulfate () 2 - 4 mg IV Q2H PRN PRN PRN Reason: SEVERE PAIN (6-10/10) Multivitamins (Multivitamin) 1 tablet PO DAILY@0800 [facility] Last Admin: 10/21/18 11:08 Dose: 1 tablet Nutritional Formula (Lactose Free) (Ensure Clear) 120 ml PO TIDCM [facility] Last Admin: 10/21/18 13:45 Dose: Not Given Ondansetron HCl (Zofran) 4 mg IV Q8H PRN PRN PRN Reason: NAUSEA Oxycodone HCl (Oxyir) 5 - 10 mg PO Q4H PRN PRN PRN Reason: MOD-SEVERE PAIN (4-10/10) Pantoprazole Sodium (Protonix) 40 mg PO DAILY [facility] Last Admin: 10/21/18 10:51 Dose: Not Given Promethazine HCl (Phenergan) 12.5 mg IM Q6H PRN PRN; Protocol PRN Reason: NAUSEA/VOMITING Fluticasone/Salmeterol (Fluticasone-Salmeterol 232-14) 1 puff IH Q12 [facility] Last Admin: 10/21/18 11:05 Dose: Not Given Senna/Docusate Sodium (Senokot-S, Susie-Colace) 2 tablet PO BID [facility] Last Admin: 10/21/18 10:52 Dose: Not Given Sodium Chloride () 5 - 15 ml IV UD PRN PRN Reason: SALINE FLUSH Trazodone HCl (Desyrel) 50 mg PO QHS [facility] Medical Necessity - Tobacco Use Smoking Status: Never smoker Assessment/Plan 1. Osteoarthritis s/p right knee replacement today is POD 0; has no complaints and feels well pain is well controlled pain management as per orthopedics- on morpine, meloxicam, oxycodone and ketorolac encourage incentive spirometry use DVT prophylaxis as per orthopedics on calcium supplements on cefazolin, per orthopedics 2. Hypertension: on clorthalidone and carvedilol as well as furosemide 3. Asthma: on Singulair. breathing treatments with atrovent 4. DVT prophylaxis: as per orthopedics 5. Valvular heart disease s/p aortic valve replacement: had surgery in 06/09. was a porcine valve. Not on oral anticoagulation. will monitor GI prophylaxis: famotidine Thank you for the courtesy of the consult. We will continue to follow with you. Code Visit Inpatient E&M: 94604 Subs Hosp L2
[2018-10-21] MEDS: Cefazolin 1 GM/50 ML BAG IV ×2 (14:55→23:35)
[2018-10-21] MEDS: oxyCODONE 5 MG Tablet PO ×2 (14:56→20:44)
--- NOTE | 2018-10-21 15:00 | PN_ITS ---
Subjective: Patient is a 73 y/o female with a PMH of HTN and osteoarthritis s/o left total knee replacement. She was admitted by orthopedics after she had right total knee replacement on 10/21/18. Hospitalist service was consulted for medical management. Patient seen and examined. She had no complaints and felt well. She denied any fever, chills, cough, chest pain, SOB, abdominal pain, diarrhea or vomiting. Review of systems was otherwise negative. Labs and virals reviewed. Home meds reviewed and reconciled. Pain was well controlled. Vitals/I&O's: Vital Signs Temp Pulse Resp BP Pulse Ox 98.1 F 78 17 144/73 H 99 10/21/18 12:09 10/21/18 12:09 10/21/18 13:16 10/21/18 12:09 10/21/18 13:16 Oxygen Delivery Method Room Air Weight: 133 lb 13.129 oz Body Mass Index (BMI) 26.9 Intake and Output for Last 24 Hours 10/19/18 10/20/18 10/21/18 23:59 23:59 23:59 Intake Total 1400 / 1400 Balance 1400 / 1400 General: Alert, Oriented x3, Cooperative, No apparent distress HEENT: Atraumatic, PERRLA, EOMI, Normocephalic Oral: Moist Mucosa Neck: Supple, No JVD, Negative Carotid Bruits Lungs: Clear to auscultation, Normal air movement, No rhonchi, No wheeze, No rales Cardiovascular: Regular rate, Regular Rhythm, Normal S1, Normal S2, No murmurs Abdomen: Bowel Sounds Present, Soft, Non Tender, Non-Distended, No Hepato- splenomegaly Extremities: No edema, Capillary Refill Less than 3 Seconds Skin: No rashes, No breakdown Musculoskeletal: - - right knee bandaged; dressing is clean and dry Lymphatic: No Cervical, Supraclavicular, or Inguinal Adenopathy Neurological: Cranial nerves II-XII grossly intact, Neuro grossly intact Psych/Mental Status: Normal Affect, Appropriate, Alert and oriented to time, place, person, mood and affect Current Medications Acetaminophen (Tylenol) 1,000 mg PO Q8 [facility] Last Admin: 10/21/18 13:44 Dose: 1,000 mg Albuterol Sulfate (Ventolin Aerosols) 2.5 mg INHALATION Q4H PRN PRN Reason: SOB/WHEEZING Ascorbic Acid (Vitamin C) 1,000 mg PO BID [facility] Last Admin: 10/21/18 10:52 Dose: Not Given Aspirin ([facility]in, Baby) [facility] Calcium/Vitamin D (Os-Bertram 500mg + D) 1 tablet PO TIDCM [facility] Last Admin: 10/21/18 13:45 Dose: 1 tablet Carvedilol (Coreg) 12.5 mg PO BID [facility] Carvedilol (Coreg) 6.25 mg PO BID [facility] Chlorthalidone (Hygroton) 25 mg PO DAILY [facility] Last Admin: 10/21/18 11:06 Dose: 25 mg Cyclobenzaprine HCl (Cyclobenzaprine Hcl) 5 mg PO BID PRN PRN Reason: BACK SPASMS Famotidine (Pepcid) 20 mg PO DAILY [facility] Last Admin: 10/21/18 11:08 Dose: 20 mg Ferrous Sulfate (Ferrous Sulfate) 325 mg PO DAILY@1200 [facility] Last Admin: 10/21/18 11:07 Dose: 325 mg Furosemide (Lasix) 20 mg PO DAILY [facility] Last Admin: 10/21/18 11:06 Dose: 20 mg Gabapentin (Neurontin) 400 mg PO TIDCM [facility] Last Admin: 10/21/18 13:44 Dose: 400 mg Cefazolin Sodium () 1 gm in 50 mls @ 150 mls/hr IV Q8H [facility] Stop: 10/21/18 23:49 Lactated Ringer's () 1,000 mls @ 125 mls/hr IV .Q8H [facility] Last Admin: 10/21/18 11:04 Dose: 125 mls/hr Ketorolac Tromethamine (Toradol) 15 mg IV Q6H PRN PRN PRN Reason: MILD-MOD PAIN (1-5/10) Loratadine (Claritin) 10 mg PO DAILY [facility] Meloxicam (Mobic) 7.5 mg PO BID [facility] Last Admin: 10/21/18 10:53 Dose: Not Given Montelukast Sodium (Singulair) 10 mg PO HS [facility] Morphine Sulfate () 2 - 4 mg IV Q2H PRN PRN PRN Reason: SEVERE PAIN (6-10/10) Multivitamins (Multivitamin) 1 tablet PO DAILY@0800 [facility] Last Admin: 10/21/18 11:08 Dose: 1 tablet Nutritional Formula (Lactose Free) (Ensure Clear) 120 ml PO TIDCM [facility] Last Admin: 10/21/18 13:45 Dose: Not Given Ondansetron HCl (Zofran) 4 mg IV Q8H PRN PRN PRN Reason: NAUSEA Oxycodone HCl (Oxyir) 5 - 10 mg PO Q4H PRN PRN PRN Reason: MOD-SEVERE PAIN (4-10/10) Pantoprazole Sodium (Protonix) 40 mg PO DAILY [facility] Last Admin: 10/21/18 10:51 Dose: Not Given Promethazine HCl (Phenergan) 12.5 mg IM Q6H PRN PRN; Protocol PRN Reason: NAUSEA/VOMITING Fluticasone/Salmeterol (Fluticasone-Salmeterol 232-14) 1 puff IH Q12 [facility] Last Admin: 10/21/18 11:05 Dose: Not Given Senna/Docusate Sodium (Senokot-S, Susie-Colace) 2 tablet PO BID [facility] Last Admin: 10/21/18 10:52 Dose: Not Given Sodium Chloride () 5 - 15 ml IV UD PRN PRN Reason: SALINE FLUSH Trazodone HCl (Desyrel) 50 mg PO QHS [facility] Medical Necessity - Tobacco Use Smoking Status: Never smoker Assessment/Plan 1. Osteoarthritis s/p right knee replacement * today is POD 0; has no complaints and feels well * pain is well controlled * pain management as per orthopedics- on morpine, meloxicam, oxycodone and ketorolac * encourage incentive spirometry use * DVT prophylaxis as per orthopedics * on calcium supplements * on cefazolin, per orthopedics * 2. Hypertension: on clorthalidone and carvedilol as well as furosemide 3. Asthma: on Singulair. breathing treatments with atrovent 4. DVT prophylaxis: as per orthopedics 5. Valvular heart disease s/p aortic valve replacement: * had surgery in 06/09. was a porcine valve. Not on oral anticoagulation. * will monitor GI prophylaxis: famotidine Thank you for the courtesy of the consult. We will continue to follow with you. Code Visit Inpatient E&M: [id number] Subs Hosp L2
[2018-10-21] MEDS: Aspirin 81 MG TAB.CHEW PO (18:22)
[2018-10-21] MEDS: Carvedilol 6.25 MG Tablet PO (21:53)
[2018-10-21] MEDS: traZODone 50 MG Tablet PO (21:53)
[2018-10-21] MEDS: Fluticasone/Salmeterol 232-14 Inhaler 1 PUFF IH (21:54)
[2018-10-21] MEDS: Senna/Docusate Sodium 1 Tablet 2 TABLET PO (21:54)
[2018-10-21] MEDS: Carvedilol 12.5 MG Tablet PO (21:55)
[2018-10-21] MEDS: Montelukast 10 MG Tablet PO (21:56)
[2018-10-21] MEDS: Meloxicam 7.5 MG Tablet PO (21:56)
[2018-10-21] MEDS: Ascorbic Acid 500 MG Tablet 1000 MG PO (21:57)
[2018-10-21] MEDS: 0.9% NaCl Peripheral Flush Adult/Peds IV (23:41)
[2018-10-21] MEDS: Morphine 2 MG/ML Syringe IV (23:41)
[2018-10-22 02:59] VITALS: BP 120/59; PULSE 79; RESP 16; TEMP 37.1; O2SAT 96
[2018-10-22] MEDS: oxyCODONE 5 MG Tablet PO ×2 (04:34→11:05)
[2018-10-22] MEDS: Acetaminophen 500 MG Tablet 1000 MG PO (06:12)
[2018-10-22 06:13] LABS: Hematocrit 33.1 % (37-47); Hemoglobin 10.7 g/dl (12.0-15.0); Mean Corp Hgb Conc 32.3 g/gl (32-36); Mean Corpuscular Hgb 30.4 pg (27.0-32.0); Mean Platelet Vol. 10.7 fl (6.2-12.0); Platelet Count 172 K/mm3 (150-450); RBC Distribution Width CV 14.5 % (11.6-14.6); RBC Distribution Width SD 47.4 fl (35.1-43.9); Red Blood Count 3.52 M/mm3 (4.2-5.4); White Blood Count 8.4 K/mm3 (4.4-11.0)
[2018-10-22 06:16] LABS: BUN 15 mg/dL (7-18); BUN/Creat Ratio 19.7 RATIO (10-20); Calcium,Total 8.2 mg/dL (8.5-10.1); Chloride 102 mmol/L (98-107); Creatinine, Serum 0.76 mg/dL (0.55-1.02); EST Glomerular Filtration Rate 79 mL/min (>60); Est Glom Filt Rate - Afr Amer 95 mL/min (>60); Estimated Creatinine Clearance 46.58 ml/min; Glucose 123 mg/dL (74-106); Potassium 4.2 mmol/L (3.5-5.1); Sodium Level 139 mmol/L (136-145)
[2018-10-22 06:17] LABS: Anion Gap 8 (5-15)
[2018-10-22 06:36] LABS: Scan Indicated on CBC? Y/N NO
[2018-10-22 07:33] VITALS: BP 142/69; PULSE 77; RESP 16; TEMP 36.7; O2SAT 94
[2018-10-22] MEDS: Aspirin 81 MG TAB.CHEW PO (07:44)
[2018-10-22] MEDS: Gabapentin 400 MG Capsule PO ×2 (07:44→11:08)
[2018-10-22] MEDS: Multivitamins,Therapeutic Tablet 1 TABLET PO (07:44)
[2018-10-22] MEDS: Calcium Carb/Vitamin D 1 TABLET Tablet PO ×2 (07:44→11:10)
--- NOTE | 2018-10-22 09:20 | PN.ORTHO_ITS ---
Subjective: The patient was sitting in bedside chair upon examination. Patient denies any chest pain, shortness of breath, dizziness, lightheadedness, nausea or vomiting, or calf pain. Pain is controlled on medications. No adverse overnight events. Overall patient is doing very well. She has tolerated therapy well. Plan is for discharge home today. Patient wishes to go home today. Objective: Vital signs stable and afebrile. Patient is able to plantarflex and dorsiflex actively. Sensation is intact to light touch to saphenous, sural, superficial and deep peroneal, and tibial distribution. Dressing is with mild drainage over the distal dressing Negative Homans bilaterally, negative signs and symptoms of DVT. - Physical Exam General: Alert, Oriented x3, Cooperative, No apparent distress Vital Signs Temp Pulse Resp BP Pulse Ox 98.1 F 77 16 142/69 H 94 10/22/18 07:33 10/22/18 07:33 10/22/18 07:33 10/22/18 07:33 10/22/18 07:33 Oxygen Delivery Method Room Air Weight: 60.7 kg Body Mass Index (BMI) 26.9 Intake and Output for Last 24 Hours 10/20/18 10/21/18 10/22/18 23:59 23:59 23:59 Intake Total 2589 / 2589 340.4 / 340.4 Output Total 900 / 900 300 / 300 Balance 1689 / 1689 40.4 / 40.4 Laboratory Tests Past 24 Hrs 10/22/18 10/22/18 05:46 05:46 WBC 8.4 RBC 3.52 L Hgb 10.7 L Hct 33.1 L MCV 94.0 MCH 30.4 MCHC 32.3 RDW 14.5 RDW Differential 47.4 H Plt Count 172 MPV 10.7 Sodium 139 Potassium 4.2 Chloride 102 Carbon Dioxide 29.0 Anion Gap 8 BUN 15 Creatinine 0.76 Estim Creat Clear Calc 46.58 Est GFR (MDRD) Af Amer 95 Est GFR (MDRD) Non-Af 79 BUN/Creatinine Ratio 19.7 Glucose 123 H Calcium 8.2 L Medical Necessity - Tobacco Use Smoking Status: Never smoker Assessment/Plan 1. S/P right total knee arthroplasty POD #1 2. Continue Pain Medications: Tylenol and OxyIR 3. DVT Prophylaxis: Aspirin 81 mg twice daily with food for 4 weeks postoperatively 4. PT/OT: Weightbearing as tolerated 5. H & H: 10.7/33.1, asymptomatic 6. Encouraged Incentive Spirometry 7. Continue postoperative medical management per medicine 8. Disposition: Orthopedically stable, plan is for discharge home today. Patient underwent a left total knee arthroplasty in August 2018. Patient still has remaining oxycodone, Tylenol, senna, and aspirin. Patient was instructed that if she begins running low on the oxycodone and needs a refill she will contact her office. Remaining medications will be E scribed to the right aid in [place]. Patient will follow-up per postop instructions.
--- NOTE | 2018-10-22 09:27 | PCM.DC.TKR ---
Discharge Diet: No Restrictions Discharge Activity: May Not Drive May shower in (days): 1 - Turned dressing away from water Ice area for (Minutes): 20 - every hour while awake. Weight Bearing Status: Weight bearing as tolerated Elevate: Operative Extremity Additional Activity Instructions:: Wear elastic stockings for 2 weeks after your surgery. Call your doctor if your incision/area has: Continuous Slow Oozing, Sudden Increased Bleeding, Increased Pain/ Swelling, Increased Redness, Foul Smelling Discharge Call your doctor if you observe: Fever of 101 or Higher, Coldness, Increased Pain, Numbness or Tingling, Change in Color, Calf discomfort, Uncontrolled pain Remove Dressing in (days):: 4 - Okay to remove on October 26, 2018 Additional Instructions: Follow [facility] postop instructions Allergies/Adverse Reactions: Allergies No Known Allergies Allergy (Verified 10/07/18 09:51) Medications to take at Discharge Calcium Carbonate/Vitamin D3 [Calcium 600-Vit D3 800 Caplet] 1 tab PO TID 09/04/15 Gabapentin [Neurontin] 400 mg PO TIDCM 09/04/15 Multivitamins,Therapeutic [Multivitamin] 1 tablet PO DAILY 09/04/15 Vitamin E 400 units PO DAILY 09/04/15 Albuterol IH (ProAir) [Proair Hfa] 2 puff INHALATION Q6H PRN PRN 08/17/18 Arthromend W/ Msm 1 tab PO BID 08/17/18 Ascorbic Acid [Vitamin C] 1,000 mg PO BID 08/17/18 Carvedilol [Coreg (Beta Carine)] 18.75 mg PO BID 08/17/18 Cyclobenzaprine HCl 5 mg PO BID PRN 08/17/18 Ferrous Sulfate 325 mg PO DAILY@0800 08/17/18 Fluticasone/Vilanterol [Breo Ellipta 100-25 Mcg INH] 1 each IH DAILY 08/17/18 Furosemide [Lasix] 20 mg PO DAILY 08/17/18 Loratadine [Allergy Relief] 10 mg PO DAILY 08/17/18 Montelukast Sodium [Singulair] 10 mg PO DAILY 08/17/18 Pantoprazole Sodium [Protonix] 40 mg PO DAILY 08/17/18 traZODone [Desyrel] 50 mg PO QHS 08/17/18 Chlorthalidone 25 mg PO DAILY 10/07/18 Acetaminophen [Tylenol] 1,000 mg PO Q8 #0 tablet 10/22/18 Aspirin [Aspirin, Baby] 81 mg PO BIDCM tab.chew 10/22/18 Famotidine [Pepcid] 20 mg PO DAILY #30 tablet 10/22/18 Meloxicam [Mobic] 7.5 mg PO BID #60 tablet 10/22/18 Oxycodone [Oxyir] 5 - 10 mg PO Q4H PRN PRN 7 Days tablet 10/22/18 Senna/Docusate Sodium [Senokot-S] 2 tablet PO BID tablet 10/22/18 The following prescriptions were given: Famotidine [Pepcid] 20 mg PO DAILY #30 tablet Meloxicam [Mobic] 7.5 mg PO BID #60 tablet Primary Care Physician: Jackson Greer DO [Primary Care Provider] - Test Results: Test results from this visit will be discussed in further detail at your follow-up appointment, if applicable. Please Follow Up With: [facility] physical therapy Please Follow Up With: Samuel Modi PA-C When: 11/04/18 @ 8:30 am
--- NOTE | 2018-10-22 10:48 | PCM.PN.HOSP ---
Subjective: Current was seen and examined. She feels well. Pain is well controlled. She is being discharged home. No acute events overnight Objective: Physical exam: General: Alert, Oriented x3, Cooperative, No apparent distress HEENT: Atraumatic, PERRLA, EOMI, Normocephalic Oral: Moist Mucosa Neck: Supple, No JVD, Negative Carotid Bruits Lungs: Clear to auscultation, Normal air movement, No rhonchi, No wheeze, No rales Cardiovascular: Regular rate, Regular Rhythm, Normal S1, Normal S2, No murmurs Abdomen: Bowel Sounds Present, Soft, Non Tender, Non-Distended, No Hepato-splenomegaly Extremities: No edema, Capillary Refill Less than 3 Seconds Skin: No rashes, No breakdown Musculoskeletal: - - right knee bandaged; dressing is clean and dry Lymphatic: No Cervical, Supraclavicular, or Inguinal Adenopathy Neurological: Cranial nerves II-XII grossly intact, Neuro grossly intact Psych/Mental Status: Normal Affect, Appropriate, Alert and oriented to time, place, person, mood and affect Vitals/I&O's: Vital Signs Temp Pulse Resp BP Pulse Ox 98.1 F 77 16 142/69 H 94 10/22/18 07:33 10/22/18 07:33 10/22/18 07:33 10/22/18 07:33 10/22/18 07:33 Oxygen Delivery Method Room Air Weight: 60.7 kg Body Mass Index (BMI) 26.9 Intake and Output for Last 24 Hours 10/20/18 10/21/18 10/22/18 23:59 23:59 23:59 Intake Total 2589 / 2589 340.4 / 340.4 Output Total 900 / 900 300 / 300 Balance 1689 / 1689 40.4 / 40.4 Laboratory Results 10/22/18 05:46: WBC 8.4, RBC 3.52 L, Hgb 10.7 L, Hct 33.1 L, MCV 94.0, MCH 30.4, MCHC 32.3, RDW 14.5, RDW Differential 47.4 H, Plt Count 172, MPV 10.7 10/22/18 05:46: Sodium 139, Potassium 4.2, Chloride 102, Carbon Dioxide 29.0, Anion Gap 8, BUN 15, Creatinine 0.76, Estim Creat Clear Calc 46.58, Est GFR (MDRD) Af Amer 95, Est GFR (MDRD) Non-Af 79, BUN/Creatinine Ratio 19.7, Glucose 123 H, Calcium 8.2 L Current Medications Acetaminophen (Tylenol) 1,000 mg PO Q8 [facility] Last Admin: 10/22/18 06:12 Dose: 1,000 mg Albuterol Sulfate (Ventolin Aerosols) 2.5 mg INHALATION Q4H PRN PRN Reason: SOB/WHEEZING Ascorbic Acid (Vitamin C) 1,000 mg PO BID [facility] Last Admin: 10/21/18 21:57 Dose: 1,000 mg Aspirin (Aspirin, Baby) 81 mg PO BIDCM [facility] Last Admin: 10/22/18 07:44 Dose: 81 mg Calcium/Vitamin D (Os-Bertram 500mg + D) 1 tablet PO TIDCM [facility] Last Admin: 10/22/18 07:44 Dose: 1 tablet Carvedilol (Coreg) 12.5 mg PO BID [facility] Last Admin: 10/21/18 21:55 Dose: 12.5 mg Carvedilol (Coreg) 6.25 mg PO BID [facility] Last Admin: 10/21/18 21:53 Dose: 6.25 mg Chlorthalidone (Hygroton) 25 mg PO DAILY [facility] Last Admin: 10/21/18 11:06 Dose: 25 mg Cyclobenzaprine HCl (Cyclobenzaprine Hcl) 5 mg PO BID PRN PRN Reason: BACK SPASMS Famotidine (Pepcid) 20 mg PO DAILY [facility] Last Admin: 10/21/18 11:08 Dose: 20 mg Ferrous Sulfate (Ferrous Sulfate) 325 mg PO DAILY@1200 [facility] Last Admin: 10/21/18 11:07 Dose: 325 mg Furosemide (Lasix) 20 mg PO DAILY [facility] Last Admin: 10/21/18 11:06 Dose: 20 mg Gabapentin (Neurontin) 400 mg PO TIDCM [facility] Last Admin: 10/22/18 07:44 Dose: 400 mg Ketorolac Tromethamine (Toradol) 15 mg IV Q6H PRN PRN PRN Reason: MILD-MOD PAIN (1-5/10) Loratadine (Claritin) 10 mg PO DAILY [facility] Meloxicam (Mobic) 7.5 mg PO BID [facility] Last Admin: 10/21/18 21:56 Dose: 7.5 mg Montelukast Sodium (Singulair) 10 mg PO HS [facility] Last Admin: 10/21/18 21:56 Dose: 10 mg Morphine Sulfate () 2 - 4 mg IV Q2H PRN PRN PRN Reason: SEVERE PAIN (6-10/10) Last Admin: 10/21/18 23:41 Dose: 4 mg Multivitamins (Multivitamin) 1 tablet PO DAILY@0800 [facility] Last Admin: 10/22/18 07:44 Dose: 1 tablet Nutritional Formula (Lactose Free) (Ensure Clear) 120 ml PO TIDCM [facility] Last Admin: 10/22/18 07:43 Dose: Not Given Ondansetron HCl (Zofran) 4 mg IV Q8H PRN PRN PRN Reason: NAUSEA Oxycodone HCl (Oxyir) 5 - 10 mg PO Q4H PRN PRN PRN Reason: MOD-SEVERE PAIN (4-10/10) Last Admin: 10/22/18 04:34 Dose: 10 mg Pantoprazole Sodium (Protonix) 40 mg PO DAILY [facility] Last Admin: 10/21/18 10:51 Dose: Not Given Promethazine HCl (Phenergan) 12.5 mg IM Q6H PRN PRN; Protocol PRN Reason: NAUSEA/VOMITING Fluticasone/Salmeterol (Fluticasone-Salmeterol 232-14) 1 puff IH Q12 [facility] Last Admin: 10/21/18 21:54 Dose: 1 puff Senna/Docusate Sodium (Senokot-S, Susie-Colace) 2 tablet PO BID [facility] Last Admin: 10/21/18 21:54 Dose: 2 tablet Sodium Chloride () 5 - 15 ml IV UD PRN PRN Reason: SALINE FLUSH Last Admin: 10/21/18 23:41 Dose: 10 ml Trazodone HCl (Desyrel) 50 mg PO QHS [facility] Last Admin: 10/21/18 21:53 Dose: 50 mg Medical Necessity - Tobacco Use Smoking Status: Never smoker Assessment/Plan 1. Postop day 1 status post right knee replacement, pain is controlled, surgical management by orthopedic team 2. Hypertension, controlled, continue on home medication 3. Asthma, controlled, on singular 4. Status post aortic valve replacement, stable 5. DVT prophylaxis per orthopedics Okay for discharge from medicine standpoint Code Visit Inpatient E&M: 39199 Subs Hosp L2
[2018-10-22] MEDS: Loratadine 10 MG Tablet PO (10:55)
[2018-10-22] MEDS: Carvedilol 12.5 MG Tablet PO (10:55)
[2018-10-22] MEDS: Carvedilol 6.25 MG Tablet PO (10:55)
[2018-10-22] MEDS: Fluticasone/Salmeterol 232-14 Inhaler 1 PUFF IH (10:56)
[2018-10-22] MEDS: Chlorthalidone 50 MG Tablet 25 MG PO (10:56)
[2018-10-22] MEDS: Furosemide 20 MG Tablet PO (10:57)
[2018-10-22] MEDS: Meloxicam 7.5 MG Tablet PO (10:57)
[2018-10-22] MEDS: Pantoprazole Sodium 40 MG Tablet PO (10:58)
[2018-10-22] MEDS: Famotidine 20 MG Tablet PO (10:59)
[2018-10-22] MEDS: Senna/Docusate Sodium 1 Tablet 2 TABLET PO (10:59)
[2018-10-22] MEDS: Ascorbic Acid 500 MG Tablet 1000 MG PO (11:00)
[2018-10-22] MEDS: Ferrous Sulfate 325 MG Tablet PO (11:08)
--- NOTE | 2018-10-22 12:00 | CASEMGMT ---
RN CM Face to Face with patient for initial transition planning/care coordination assessment. RN CM introduced self and role at [facility]. Patient sitting in chair, alert and oriented, at bedside. Patient willing to participate in assessment and is able to answer all questions appropriately. Care providers, pharmacy, and demographics verified. Patient wishes to discharge home and is setup with [facility] for outpatient therapy. Patient states she has no further needs or concerns at this time. CM to follow for discharge planning needs that may arise. PCP: [facility] Specialists: [place], pain specialist; pulmonology in [place] Preferred Pharmacy: [facility] Insurance: [employer] Medicare Prescription Benefit: [employer] ZUCHEM Living Will/HPOA: Yes, Seamus Leblanc LNOK: , daughter Living Arrangements: Patient lives with in 1 story home with 3 steps to enter home. Transportation: DME/HHC: Patient has cane and walker at home. Disposition Plan: Patient to discharge home with outpatient therapy, family support, and follow-up plans in place. Maryellen MENDOZA, RN, CM
[2018-10-22 14:04] VITALS: BP 119/56; PULSE 86; RESP 16; TEMP 37.3; O2SAT 95
--- OUTSIDE RECORDS SUMMARY | 2018-12-16 11:07 | XMS RPT_ITS ---
:1945 Author Organization [place] Support Name Relationship Address Phone ASHLEY DALE Unavailable [address] + [place] [address] ASHLEY DALE Unavailable [address] + [place] [address] CHITOASHLEY ASKEW Unavailable [address] + [place] [address] R Unavailable Unavailable Unavailable MILA BROWN Unavailable [address] + [place] [address] ASHLEY DALE Unavailable [address] + [place] [address] R Unavailable Unavailable Unavailable MILA BROWN Unavailable [address] + [place] [address] ASHLEY DALE Unavailable [address] + [place] [address] R Unavailable Unavailable Unavailable MILA BROWN Unavailable [address] + [place] [address] ASHLEY DALE Unavailable [address] + [place] [address] ASHLEY DALE Unavailable [address] + [place] [address] ASHLEY DALE Unavailable [address] + [place] [address] ASHLEY DALE Unavailable [address] + [place] [address] ASHLEY DALE Unavailable [address] + [place] [address] R Unavailable Unavailable Unavailable MILA BROWN Unavailable [address] + [place] [address] CHITO, ASHLEY Unavailable [address] + [place] [address] R Unavailable Unavailable Unavailable MILA BROWN Unavailable [address] + [place] [address] CHITO, ASHLEY Unavailable [address] + [place] [address] R Unavailable Unavailable Unavailable DANILOLÓPEZRYAN MILA Unavailable [address] + [place] [address] CHITO, ASHLEY Unavailable [address] + [place] [address] CHITO, ASHLEY Unavailable [address] + [place] [address] CHITO, ASHLEY Unavailable [address] + [place] [address] CHITO, ASHLEY Unavailable [address] + [place] [address] CHITO, ASHLEY Unavailable [address] + [place] [address] CHITO, ASHLEY Unavailable [address] + [place] [address] CHITO, ASHLEY Unavailable [address] + [place] [address] CHITO, ASHLEY Unavailable [address] + [place] [address] Care Team Providers Name Role Phone Ehsan Watts Admitting Unavailable Ehsan Watts Referring Unavailable Zoey, Diomedes Primary Care Unavailable Stephy Maress Yadira Consulting Unavailable Shawna Gonsales Attending Unavailable Ehsan Watts Admitting Unavailable Kaiser Mares Attending Unavailable Ehsan Watts Referring Unavailable Zoey, Diomedes Primary Care Unavailable Stephy Maress Yadira Consulting Unavailable Ehsan Watst Consulting Unavailable Ehsan Watts Admitting Unavailable Shawna Gonsales Attending Unavailable Ehsan Watts Referring Unavailable Zoey, Diomedes Primary Care Unavailable Kaiser Mares Consulting Unavailable Shawna Gonsales Consulting Unavailable Stefanie, Ehsan Admitting Unavailable Stefanie, Ehsan Referring Unavailable Zoey, Diomedes Primary Care Unavailable Koram, Mai Vita Consulting Unavailable Paintsil, Barneston Attending Unavailable Stefanie, Ehsan Admitting Unavailable Koram, Mai Vita Attending Unavailable Stefanie, Ehsan Referring Unavailable Zoey, Diomedes Primary Care Unavailable Koram, Mai Vita Consulting Unavailable Stefanie, Ehsan Consulting Unavailable Stefanie, Ehsan Admitting Unavailable Paintsil, Barneston Attending Unavailable Stefanie, Ehsan Referring Unavailable Zoey, Diomedes Primary Care Unavailable Koram, Mai Vita Consulting Unavailable Paintsil, Barneston Consulting Unavailable ESTER NEVES Attending Unavailable GERRY GARCÍA, AL Nelson Primary Care Unavailable AL GARRETT MD Attending Unavailable GERRY GARCÍA, AL Nelson Primary Care Unavailable AL GARRETT MD Attending Unavailable GERRY GARCÍA, AL Nelson Primary Care Unavailable TALYA ABRAHAM, JOSE R Ketan Attending Unavailable GERRY GARCÍA, AL Nelson Primary Care Unavailable AL GARRETT MD Primary Care Unavailable SAMUEL BLACKBURN Attending Unavailable SAMUEL BLACKBURN Referring Unavailable ZOEY , DR. DIOMEDES Christensen Attending Unavailable AL GARRETT MD Primary Care Unavailable SAMUEL BLACKBURN Attending Unavailable SAMUEL BLACKBURN Referring Unavailable AL GARRETT MD Primary Care Unavailable Abilio Mcduffie Attending Unavailable Zoey, Diomedes Primary Care Unavailable PROBLEMS PROBLEMS DATE TYPE CONDITION / CODE ATTENDING STATUS SOURCE 10/22/2018 Unknown Z96.651 - Paintsil, Barneston Active [facility] knee joint / Repository Z96.651(ICD-10) 09/11/2018 Unknown Z96.652 - White, Shawna Active [facility] joint / Repository Z96.652(ICD-10) 07/24/2018 Admitting Unknown / Abilio Mcduffie Active [facility] Medical diagnosis UNK(Unknown) [facility] [place] Repository PROCEDURES PROCEDURES No Procedure Records FoundRESULTS RESULTS DISCHARGE INSTRUCTION Observed: 10/22/2018 Status: F Source: SISI 9:29 [facility] REPOSITORY [facility] Medical Records Department [address] [place] [address] [place] [address] Instructions for Home/Discharge Instructions 11/926 MR#: [id number] Acct: [id number] Name: Chencho DALE Rep #: [id number] : 1945 73 From: Samuel Modi PA-C PCP: Diomedes Greer,DO Status: ADM IN Discharge Diet: No Restrictions Discharge Activity: May Not Drive May shower in (days): 1 - Turned dressing away from water Ice area for (Minutes): 20 - every hour while awake. Weight Bearing Status: Weight bearing as tolerated Elevate: Operative Extremity Additional Activity Instructions:: Wear elastic stockings for 2 weeks after your surgery. Call your doctor if your incision/area has: Continuous Slow Oozing, Sudden Increased Bleeding, Increased Pain/ Swelling, Increased Redness, Foul Smelling Discharge Call your doctor if you observe: Fever of 101 or Higher, Coldness, Increased Pain, Numbness or Tingling, Change in Color, Calf discomfort, Uncontrolled pain Remove Dressing in (days):: 4 - Okay to remove on October 26, 2018 Additional Instructions: Follow [facility] postop instructions Allergies/Adverse Reactions: Allergies No Known Allergies Allergy (Verified 10/07/18 09:51) Medications to take at Discharge Calcium Carbonate/Vitamin D3 [Calcium 600-Vit D3 800 Caplet] 1 tab PO TID 09/04/15 Gabapentin [Neurontin] 400 mg PO TIDCM 09/04/15 Multivitamins,Therapeutic [Multivitamin] 1 tablet PO DAILY 09/04/15 Vitamin E 400 units PO DAILY 09/04/15 Albuterol IH (ProAir) [Proair Hfa] 2 puff INHALATION Q6H PRN PRN 08/17/18 Arthromend W/ Msm 1 tab PO BID 08/17/18 Ascorbic Acid [Vitamin C] 1,000 mg PO BID 08/17/18 Carvedilol [Coreg (Beta Carine)] 18.75 mg PO BID 08/17/18 Cyclobenzaprine HCl 5 mg PO BID PRN 08/17/18 Ferrous Sulfate 325 mg PO DAILY@0800 08/17/18 Fluticasone/Vilanterol [Breo Ellipta 100-25 Mcg INH] 1 each IH DAILY 08/17/18 Furosemide [Lasix] 20 mg PO DAILY 08/17/18 Loratadine [Allergy Relief] 10 mg PO DAILY 08/17/18 Montelukast Sodium [Singulair] 10 mg PO DAILY 08/17/18 Pantoprazole Sodium [Protonix] 40 mg PO DAILY 08/17/18 traZODone [Desyrel] 50 mg PO QHS 08/17/18 Chlorthalidone 25 mg PO DAILY 10/07/18 Acetaminophen [Tylenol] 1,000 mg PO Q8 #0 tablet 10/22/18 Aspirin [Aspirin, Baby] 81 mg PO BIDCM tab.chew 10/22/18 Famotidine [Pepcid] 20 mg PO DAILY #30 tablet 10/22/18 Meloxicam [Mobic] 7.5 mg PO BID #60 tablet 10/22/18 Oxycodone [Oxyir] 5 - 10 mg PO Q4H PRN PRN 7 Days tablet 10/22/18 Senna/Docusate Sodium [Senokot-S] 2 tablet PO BID tablet 10/22/18 The following prescriptions were given: Famotidine [Pepcid] 20 mg PO DAILY #30 tablet Meloxicam [Mobic] 7.5 mg PO BID #60 tablet Primary Care Physician: Diomedes Greer DO [Primary Care Provider] - Test Results: Test results from this visit will be discussed in further detail at your follow-up appointment, if applicable. Please Follow Up With: [facility] physical therapy Please Follow Up With: Samuel Modi PA-C When: 11/04/18 @ 8:30 am 10/22/18 0929 <Electronically signed by Samuel Modi PA-C> Date Samuel Modi PA-C CC: DO Diomedes Greer; Mai Jimenes MD BASIC METABOLIC Collected: 10/22/2018 Status: F Source: SISI PROFILE (BMP) 5:46 AM [facility] REPOSITORY TYPE CODE TESTS RESULT OUT OF RANGE REFERENCE UNITS LAB L501.0100 74-106 mg/dL High GLU 123 Result Comment: Fasting Glucose result from 100 to 125 mg/dL suggests IMPAIRED HOMEOSTASIS per A.D.A. criteria. Please note revised GLUCOSE reference range effective 2017. LAB L501.1000 7-18 mg/dL Normal BUN 15 LAB L501.1100 0.55-1.02 mg/dL Normal CREAT,SERUM 0.76 Result Comment: The validity of the calculated GFR AND GFRAA in patients over 70 years has not been determined. Clinical correlation is essential. LAB L501.1110 >60 mL/min Normal EST GFR 79 Result Comment: Non- GFR Calc LAB L501.1115 >60 mL/min Normal EST GFR - AA 95 Result Comment: GFR Calc LAB L501.1255 ml/min Normal Estimated CRCL 46.58 LAB L501.1300 10-20 RATIO Normal BUN/CRE 19.7 LAB L501.2200 8.5-10 mg/dL Low .1 CA 8.2 LAB L501.5300 136-14 mmol/L Normal 5 NA 139 LAB L501.5600 3.5-5. mmol/L Normal 1 K 4.2 LAB L501.5900 98-107 mmol/L Normal CL 102 LAB L501.6100 21.0-3 mmol/L Normal 2.0 CO2 29.0 LAB L501.6200 5-15 Normal GAP 8 Performed By: #### L500.2500 #### [facility] [address] [place], [place], [address] CBC-COMPLETE BLOOD CNT Collected: 10/22/2018 Status: F Source: RIDGELY NO DIFF 5:46 AM [facility] REPOSITORY TYPE CODE TESTS RESULT OUT OF RANGE REFERENCE UNITS LAB L100.1000 4.4-11.0 K/mm3 Normal WBC 8.4 LAB L100.1200 4.2-5.4 M/mm3 Low RBC 3.52 LAB L100.1300 12.0-15.0 g/dl Low HGB 10.7 LAB L100.1400 37-47 % Low HCT 33.1 LAB L100.1500 81-99 fL Normal MCV 94.0 LAB L100.1600 27.0-32.0 pg Normal MCH 30.4 LAB L100.1700 32-36 g/gl Normal MCHC 32.3 LAB L100.1810 11.6-14.6 % Normal RDW CV 14.5 LAB L100.1820 35.1-43.9 fl High RDW SD 47.4 LAB L100.1900 150-450 K/mm3 Normal PLT 172 LAB L100.2000 6.2-12.0 fl Normal MPV 10.7 Performed By: #### L100.0500 #### [facility] [address] [place], [address] OPERATIVE REPORT Observed: 10/21/2018 Status: F Source: RIDGELY 8:42 AM [facility] REPOSITORY [facility] Medical Records Department [address] [place] [address] Operative Report 10/21/18 0836 MR#: [id number] Acct: [id number] Name: Chencho DALE Rep #: [id number] : 1945 73 From: Ehsan Watts MD PCP: Diomedes Greer DO Status: ADM IN Y Location: [address] Report of Operation Date of Procedure: 10/21/18 Pre-Operative Diagnosis: Right knee primary osteoarthritis Post-Operative Diagnosis: Right knee primary osteoarthritis Surgery/Procedure Performed:: Right total knee replacement Description of Surgical Findings:: Stable knee with good patella tracking Cemented cruciate retaining total knee replacement collection systems modeler: Clarice Montesinos Type of Anesthesia:: Spinal Anesthesiologist: Dylan Tello Special Medications: 2 g Ancef, 1 g TXA at incision, 1 g TXA closure, 10 mg Decadron, joint cocktail (5 mg Duramorph, 30 mL of 0.5% Ropivicaine, 1000 units of epinephrine, 30 mg of Toradol) Specimen's removed: Bony cuts Estimated Blood Loss (mL): 25 Fluids Replaced: 1200 ml crystalloid Description of Procedure: Implants used: 1. [place] size 2 triathlon cruciate retaining distal femoral component 2. [place] size 2 universal tibial baseplate 3. [place] X3 9 mm CS polyethylene 4. [place] X3 29 mm asymmetric patella Brief history operative indications: 73-year-old f with history of right knee osteoarthritis with radiographic findings with loss of joint space, osteophyte formation and subchondral sclerosis. Failed conservative measures as mentioned in the H AND P. Discussion of total knee arthroplasty as well as risk and benefits were discussed the patient including but not limited to blood loss, DVTs, PEs, neurovascular damage, general risk of anesthesia including loss of life, and stiffness or instability were discussed with patient. Patient demonstrated understanding and was able to sign informed consent. Procedure: On the date of procedure patient's right lower extremity was marked in the preoperative area. The patient was then taken back to the operating room where the patient was placed on the table in the supine position. All bony prominences were identified a well-padded. Anesthesia assumed control of the C-spine and airway and remained controlled throughout the remainder of the procedure. A tourniquet was placed on the right upper thigh and the leg was prepped in a sterile fashion. The surgeon then scrubbed at this time. Upon reentering the room the right lower extremity was draped in a standard orthopedic fashion. A timeout was then called and everyone agreed upon the side, the site, the procedure to be performed, patient's identity and antibiotics given. Esmarch bandage was used to exsanguinate the extremity and the tourniquet was placed up to 250 mmHg with the knee in flexion. A midline skin incision was made and sharp dissection was taken down through skin subcutaneous tissue and fat. The standard medial parapatellar incision was made and the patella was subluxed laterally. The standard deep MCL release was done and the fat pad was resected. Next our attention was directed to the femur. Navigation pins were placed, navigation was registered. The distal femoral cutting block was pinned into place and 9 mm of distal femur resection was completed. The distal femoral cut was verified with navigation. The knee was then placed in deep flexion in the standard [employer] sizing guide was used to place the femoral component in 3 external rotation based on the posterior condyles. A size 2 4-in-1 cutting block was selected and pinned into place. The anterior cut was then made and checked for notching. The subsequent anterior chamfer cuts, posterior condylar cuts and posterior chamfer cuts were made while ensuring the MCL and LCL were protected. Our attention was then turned to the tibia. Ana tibial cutting guide was used to make the appropriate tibial cut 90 degrees from the mechanical axis. A size 2 tibial base plate was selected. the knee was flexed to 90 degrees and the soft tissues and posterior osteophytes were removed from the joint. 40 cc of the periarticular injection was injected into the posterior medial corner of the joint. The appropriate trials were then placed on the femur and tibia. A trial polyethylene was trialed to ensure proper balancing and stability of the knee. Patella tracking, was then verified and corrected appropriately as needed. The appropriate tibial internal rotation was then marked with a bovie. Our attention was then directed to the patella. The patella was everted and a flat resection was made. Depth caliper was used to verify the patella was at least 10 mm in thickness due to the patient's excessive patella wear and small patella to begin with.. The lug holes were drilled and the patella trial was placed. Patellar tracking was checked and deemed appropriate. Once we were happy lug holes were drilled for the femur and trial components were removed. the tibia was subluxed and pinned into place and the keel was punched and the canal was reamed. Final components were verified and opened, and cement was mixed in a vacuum. Ashu Simplex cement was used. The wound was copiously irrigated with normal saline. When the cement was ready the components were cemented into place starting with the tibia, femur and finally the patella. The trial poly component was placed and the knee was placed in full extension. All excess cement was removed in the process. Once the cement had cured the tracking, alignment and balance were verified and a size 9 mm polyethylene component was placed. Once the final components were placed the wound was copiously irrigated with normal saline solution and the periarticular injection was given. The wound was closed in a layer buckley fashion using #1 vicryl interrupted sutures for the arthrotomy, 2-0 interrupted Vicryl suture for the subcuticular layer and macarena for final skin closure. A sterile compressive dressing was then placed. The patient was then awakened from anesthesia, transferred to the rseneca and transferred to the PACU for recovery. Post op plan DVT ppx: ASA 81mg, thigh high compression stockings Follow up: in office in 2 weeks for wound check PT: to start POD #0 at hospital, outpatient PT should be arranged. Grafts/Implants Used: Ashu triathlon cemented total knee - Complications None - Admit VTE Documentation VTE Present on Admission: No VTE Mechan Device Prophylaxis: SCD's, Thigh High LISA Hose VTE Pharm Prophylaxis ordered?: Yes 10/21/18 0842 <Electronically signed by Ehsan Watts MD> Date Ehsan Watts MD CC: DO Diomedes Watts MD Signed KNEE 1 OR 2 VIEWS Observed: 10/21/2018 Status: F Source: SISI 7:18 AM [facility] REPOSITORY [facility] Imaging Services [address] [place] [address] Knee 1 or 2 Views MR#: [id number] Acct: [id number] Name: Chencho DALE Rep #: [id number] : 1945 F 73 From: Navid Johansen MD PCP: Diomedes Greer DO Status: ADM IN Study: Knee 1 or 2 Views Date of Exam: 10/21/18 Exam# [id number] Ordering Dr: Ehsan Watts MD STUDY: X-RAY - RIGHT KNEE REASON FOR EXAM: Female, 73 years old. Total knee replacement. TECHNIQUE: 2 view(s) of the knee. COMPARISON: None. FINDINGS: The patient is status post total knee replacement. There is good alignment. Postoperative soft tissue changes. RAD/Knee 1 or 2 Views IMPRESSION: Total knee replacement. There is good alignment. Postoperative soft tissue changes. Electronically Signed: Navid Johansen MD at 12:11 EST Tel [phone], Service support , CC: DO Diomedes Watts MD Maintenance And Utilities Supervisor: Signed MA MAMMOGRAM SCREENING Observed: 10/14/2018 Status: F Source: [facility] W/BERRY 8:30 AM [facility] REPOSITORY ORIGINAL FROM: [facility] [address] [address] PROCEDURE FOR: JULIO CESAR DALE [address] [place] [address] Home: PID#: [id number] Exam#: [id number] : 1945 Age: 73 TO: DIOMEDES GREER DO [address], [place] [address] #[id number] BILATERAL DIGITAL SCREENING MAMMOGRAM 3D/2D WITH CAD WITH MEDIOLATERAL OBLIQUE CRANIOCAUDAL: 10/14/2018 Comparison is made to exams dated: 10/13/2017 mammogram, 10/13/2017 mammogram, and 10/10/2016 mammogram - [facility]. There are scattered fibroglandular elements in both breasts. Current study was also evaluated with a Computer Aided Detection (CAD) system. There are benign scattered calcifications in both breasts. No significant masses, calcifications, or other findings are seen in either breast. There has been no significant interval change. IMPRESSION: BENIGN There is no mammographic evidence of malignancy. A 1 year screening mammogram is recommended.(10/15/2019) I have personally reviewed the images of the examination and agree with the findings and interpretation. KAYA morales,da/penrad:10/14/2018 15:55:54 Embroidery Supervisor(s): RT RACHELLE(R), [facility] letter sent: Normal BI-RADS 1&2 Mammogram BI-RADS: 2 Benign HISTORY AND PHYSICAL Observed: 10/08/2018 Status: F Source: RIDGELY EXAM 11:06 AM [facility] REPOSITORY [facility] Medical Records Department [address] [place] [address] History and Physical 10/08/18 1106 MR#: [id number] Acct: [id number] Name: Chencho DALE Rep #: [id number] : 1945 73 From: Samuel Modi PA-C PCP: Diomedes Greer DO Status: PRE IN Y [place] [facility] History and Physical DATE OF SURGERY: 10/21/2018 SCHEDULED PROCEDURE: Right Total Knee Arthroplasty HISTORY OF PRESENT ILLNESS: This is a 73-year-old female who has been having ongoing pain in her right knee for several years. Patient recently underwent a left total knee arthroplasty on September 11, 2018 and is doing very well. Patient states her current right knee pain is 3-4/10. He can reach as high as a 9/10. Patient's pain is intermittent, sharp, stabbing. She has increased pain going up and down stairs, sitting for extended periods of time, and walking. Patient has tried ice, heat, elevation, and corticosteroid injections with minimal relief. Patient states she has lost 35 pounds with no relief in symptoms. She denies previous history of surgery on her right knee. Patient has tried a brace off and on with no relief in symptoms. He has been through physical therapy with regards to her left knee and continues to have ongoing pain with her right knee. Patient currently denies any chest pain, shortness of breath, fevers chills, recent infections. Patient has a medical history pertinent for hypertension, asthma, previous heart catheterization in May 2017 followed by aortic valve replacement on June 30, 2017. We have received surgical clearance from patient's paint tester and primary care physician. After failing conservative measures and discussing all treatment options with Dr. Ehsan Watts, the patient would like to proceed with a right total knee arthroplasty. REVIEW OF SYSTEMS: ROS: Const: Denies anorexia, anxiety, change in appetite, fever, hard of hearing, vision problems and weight change. CV: Denies chest pain, heart murmur, irregular heartbeat and peripheral vascular disease. Resp: Reports asthma, but denies cough, pneumonia, sleep apnea, SOB, tuberculosis and wheezing. GI: Denies constipation, diarrhea, difficulty swallowing, heartburn, nausea, bloody stools and vomiting. : Genital:. (F Genital Sx) Urinary: denies incontinence. Musculo: Denies leg swelling, limp, trouble walking and weakness. Skin: Denies Raynaud's, history of shingles and tattoo. Neuro: Denies ambulatory dysfunction, dizziness, numbness/tingling and tremor. Psych: Denies anxiety, depression, insomnia, mental illness and stress. Fredy/Lymph: Reports anemia, but denies bleeding/bruising tendency and past transfusion. Reviewed, no changes. PAST MEDICAL HISTORY: Advance Care Plan: Other Directive, P.O.A. Effective Date: 06/25/2018 Other Directive, LIVING WILL Effective Date: 06/25/2018 PMH: Medical Problems: Arthritis, Asthma, High Blood Pressure Accidents: Fracture - (1997) LT LEG Surgical Hx: Carpal Tunnel Release Lt, Carpal Tunnel Release Rt Rotator Cuff Repair Lt - (2001) [facility] Rotator Cuff Repair RT - (2001) [facility] Cyst - (1965) OVARIAN RT Second Hammer Toe Repair - (09/03/2012) [facility] @ [facility] Aortic Valve Replaced Tonsillectomy - ADENOIDS Knee Replacement LT - (09/01/2018) [email or web address] Anesthesia Complications: None Assistive Devices: None Reviewed, no changes. 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 Personal Habits: Smoking: Patient has never smoked.Cigarette Use: Never.Alcohol: Denies use.Drug Use: Denies Use.Enjoy Exercising: Daily. Reviewed, no changes. VITALS: Ht: 58 Wt: 134lb Wt k.782 BMI: 28.0 BP: 112/65 Pulse: 69 Resp: 18 T: 95.5 T: 35.3C ALLERGIES: No Known Drug Allergy MEDICATIONS: Aspirin 81 mg 1 tab PO daily, Calcium/Vitamin D 600mg 1 tab PO tid, Arthromend With MSM 1 PO bid, Vitamin C 1000mg 1 tab PO bid, Trazodone HCL 50 mg 1 tab PO qhs, Vitamin E 400 mg 1 tab PO tid, Tylenol 325 mg as needed, Tramadol HCL 50 mg 1-2 by mouth every 4-6 hours as needed pain, Gabapentin 400 mg 1 cap PO tid, Ferrous Sulfate 325 (65 Fe) MG 1 tab PO daily, Carvedilol 12.5 mg 1 1/2 tabs PO bid, Cyclobenzaprine HCL 5 mg 1 tab PO bid, Montelukast Sodium 10 mg 1 by mouth every day, Pantoprazole Sodium 40 mg 1 tab PO daily, Breo Ellipta 100-25 mcg/Inh 1 puff PO daily, Chlorthalidone 25 mg 1 tab by mouth every morning, Lasix 20 mg 1 by mouth every day, Loratadine 10 mg one PO daily, Ventolin Inhaler prn PRE-OP EXAM: General appearance:NORMAL Other: Eyes: Conjunctivae and lids: NORMAL Pupils: ERR Ears, Nose, Mouth, and Throat: NORMAL Other: Inspection of lips, teeth and gums: NORMAL Other: Neck: Examination of neck: no masses noted. Respiratory: Assessment of respiratory effort: NORMAL Other: Auscultation of lungs: clear to auscultation no wheezes, rhonchi or rales. Cardiovascular: Auscultation of heart: regular rate and rhythm, no murmurs, gallops or rubs. Exam of carotid arteries: NORMAL Other: Gastrointestinal: Exam of abdomen: soft, nontender, nondistended bowel sounds present. PHYSICAL EXAMINATION: Right knee is cool to touch without erythema. Patient does walk with an antalgic gait with the right leg. Tenderness to palpation of the medial joint line. Patient does have correctable varus alignment. Range of motion right knee: Lacks 5 of extension to 115 flexion. Patient with positive crepitus on range of motion. Sensation intact to light touch. Neurovascularly intact. Left knee incision well-healed without erythema or signs of infection. IMAGING STUDIES: X-rays of the right knee were obtained that was [facility] which reveals varus alignment. There is joint space narrowing medially with subchondral sclerosis and osteophyte formation consistent with severe tricompartmental osteoarthritis. IMPRESSION: 1. Severe tricompartmental right knee osteoarthritis 2. Status post left total knee arthroplasty 3. Hypertension 4. Asthma 5. History of heart catheterization and aortic valve replacement in June 2017 PLAN: Dr. Ehsan Watts did discuss and review with the patient all treatment options including surgical versus nonsurgical options. Patient does wish to proceed with the above-stated procedure. Potential risks, benefits, and complications of the procedure were discussed in detail including but not limited to , infection, nerve and blood vessel damage, persistent pain, numbness, tingling, paresthesias, blood clot, pulmonary embolism, and requirement for possible further surgery. The patient expressed full understanding and has no further questions for the doctor. Patient does agree to proceed with the above-stated procedure and has signed the surgery consent form. This dictation was created using voice recognition software. Phonetic and/or grammatical errors may exist.. ___ I have re-examined the patient. There are no clinical changes since date of exam. ___ See progress notes for changes. ___ Dictated on admission Date: Time: Signature: 10/08/18 1106 <Electronically signed by Samuel Modi PA-C> Date Samuel Modi PA-C Cosigner Signature: Date (if applicable) CC: DO Diomedes Greer; Samuel ZAVALETA Signed CBC W/DIFF, AUTOMATED Collected: 10/07/2018 Status: F Source: SISI 10:20 AM [facility] REPOSITORY TYPE CODE TESTS RESULT OUT OF RANGE REFERENCE UNITS LAB L100.1000 4.4-11.0 K/mm3 Normal WBC 8.0 LAB L100.1200 4.2-5.4 M/mm3 Low RBC 3.86 LAB L100.1300 12.0-15.0 g/dl Low HGB 11.6 LAB L100.1400 37-47 % Normal HCT 37.2 LAB L100.1500 81-99 fL Normal MCV 96.4 LAB L100.1600 27.0-32.0 pg Normal MCH 30.1 LAB L100.1700 32-36 g/gl Low MCHC 31.2 LAB L100.1810 11.6-14.6 % High RDW CV 15.2 LAB L100.1820 35.1-43.9 fl High RDW SD 53.8 LAB L100.1900 150-450 K/mm3 Normal PLT 194 LAB L100.2000 6.2-12.0 fl Normal MPV 10.1 LAB L100.2100 47-70 % Normal NEUT% 67.0 LAB L100.2200 19-41 % Normal LY% 21.3 LAB L100.2300 0-10 % Normal MONO% 9.6 LAB L100.2400 0-5 % Normal EO% 1.6 LAB L100.2500 0-1 % Normal BASO% 0.5 LAB L100.2550 0.0-0.9 % Normal IM GRAN % 0.000 Result Comment: IG% - Immature Granulocytes (promyelocytes, myelocytes and metamyelocytes) > 1% indicates that a LEFT SHIFT is Present. LAB L100.2620 2.0-7.7 X10 3/uL Normal Absolute Neut 5.4 LAB L100.2720 0.83-4.51 X10 3/ul Normal Absolute Lymph 1.70 Performed By: #### L100.0100 #### [facility] [address] [place], [address] BASIC METABOLIC Collected: 10/07/2018 Status: F Source: RIDGELY PROFILE (BMP) 10:20 AM [facility] REPOSITORY TYPE CODE TESTS RESULT OUT OF RANGE REFERENCE UNITS LAB L501.0100 74-106 mg/dL Normal GLU 95 Result Comment: Please note revised GLUCOSE reference range effective 2017. LAB L501.1000 7-18 mg/dL Normal BUN 14 LAB L501.1100 0.55-1.02 mg/dL Normal CREAT,SERUM 0.74 Result Comment: The validity of the calculated GFR AND GFRAA in patients over 70 years has not been determined. Clinical correlation is essential. LAB L501.1110 >60 mL/min Normal EST GFR 81 Result Comment: Non- GFR Calc LAB L501.1115 >60 mL/min Normal EST GFR - AA 98 Result Comment: GFR Calc LAB L501.1255 ml/min Normal Estimated CRCL 46.64 LAB L501.1300 10-20 RATIO Normal BUN/CRE 18.8 LAB L501.2200 8.5-10 mg/dL Normal .1 CA 8.5 LAB L501.5300 136-14 mmol/L Normal 5 NA 143 LAB L501.5600 3.5-5. mmol/L Normal 1 K 5.0 LAB L501.5900 98-107 mmol/L Normal CL 106 LAB L501.6100 21.0-3 mmol/L Normal 2.0 CO2 30.0 LAB L501.6200 5-15 Normal GAP 7 Performed By: #### L500.2500 #### [facility] [address] [facility] [place], [address] Observed: 10/07/2018 Status: F Source: RIDGELY MRSA/SAID SCREEN 10:20 AM [facility] REPOSITORY MRSA/SAID SCRN S. AUREUS S. aureus Negative MRSA MRSA Negative Performed By: #### M100.651 #### [facility] [address] [place], [address] DISCHARGE INSTRUCTION Observed: 09/02/2018 Status: F Source: RIDGELY 7:31 AM [facility] REPOSITORY [facility] Medical Records Department [address] [facility] [place] [address] Instructions for Home/Discharge Instructions 09/02/18 0729 MR#: [id number] Acct: [id number] Name: Chencho DALE Rep #: [id number] : 1945 73 From: Samuel Modi PA-C PCP: Diomedes Greer DO Status: ADM IN Discharge Diet: No Restrictions Discharge Activity: May Not Drive May shower in (days): 1 - Turned dressing away from water Ice area for (Minutes): 20 - every hour while awake. Weight Bearing Status: Weight bearing as tolerated Elevate: Operative Extremity Additional Activity Instructions:: Wear elastic stockings for 2 weeks after your surgery. Call your doctor if your incision/area has: Continuous Slow Oozing, Sudden Increased Bleeding, Increased Pain/ Swelling, Increased Redness, Foul Smelling Discharge Call your doctor if you observe: Fever of 101 or Higher, Coldness, Increased Pain, Numbness or Tingling, Change in Color, Calf discomfort, Uncontrolled pain Remove Dressing in (days):: 4 - Okay to remove on September 06, 2018 Additional Instructions: Follow [facility] postop instructions Do not take any other anti-inflammatory medications including ibuprofen while taking the meloxicam 7.5 mg twice daily. Also do not take your meloxicam 15 mg for the next 30 days while on the meloxicam 7.5 mg twice daily. Allergies/Adverse Reactions: Allergies No Known Allergies Allergy (Verified 08/17/18 10:48) Medications to take at Discharge Calcium Carbonate/Vitamin D3 [Calcium 600-Vit D3 800 Caplet] 1 tab PO TID 09/04/15 Gabapentin [Neurontin] 400 mg PO TIDCM 09/04/15 Multivitamins,Therapeutic [Multivitamin] 1 tablet PO DAILY 09/04/15 Vitamin E 400 units PO DAILY 09/04/15 Albuterol IH (ProAir) [Proair Hfa] 2 puff INHALATION Q6H PRN PRN 08/17/18 Arthromend W/ Msm 1 tab PO BID 08/17/18 Ascorbic Acid [Vitamin C] 1,000 mg PO BID 08/17/18 Carvedilol [Coreg (Beta Carine)] 12.5 mg PO BID 08/17/18 Cyclobenzaprine HCl 5 mg PO BID PRN 08/17/18 Ferrous Sulfate 325 mg PO DAILY@0800 08/17/18 Fluticasone/Vilanterol [Breo Ellipta 100-25 Mcg INH] 1 each IH DAILY 08/17/18 Furosemide [Lasix] 20 mg PO BID 08/17/18 Loratadine [Allergy Relief] 10 mg PO DAILY 08/17/18 Montelukast Sodium [Singulair] 10 mg PO DAILY 08/17/18 Pantoprazole Sodium [Protonix] 40 mg PO DAILY 08/17/18 traZODone [Desyrel] 50 mg PO QHS 08/17/18 Acetaminophen [Tylenol] 1,000 mg PO Q8 #90 tab 09/02/18 Aspirin [Aspirin, Baby] 81 mg PO BID #60 tab.chew 09/02/18 Meloxicam [Mobic] 7.5 mg PO BIDCM #60 tab 09/02/18 Oxycodone [Oxyir] 5 - 10 mg PO Q4H PRN PRN 5 Days #60 tab 09/02/18 Senna/Docusate Sodium [Senokot-S] 2 tab PO BID #20 tab 09/02/18 The following prescriptions were given: Oxycodone [Oxyir] 5 - 10 mg PO Q4H PRN PRN 5 Days #60 tab PRN Reason: Mod-Severe Pain (-09/02) Acetaminophen [Tylenol] 1,000 mg PO Q8 #90 tab Aspirin [Aspirin, Baby] 81 mg PO BID #60 tab.chew Meloxicam [Mobic] 7.5 mg PO BIDCM #60 tab Senna/Docusate Sodium [Senokot-S] 2 tab PO BID #20 tab Primary Care Physician: Diomedes Greer DO [Primary Care Provider] - Test Results: Test results from this visit will be discussed in further detail at your follow-up appointment, if applicable. Please Follow Up With: [facility] physical therapy When: September 04, 2018 Please Follow Up With: Samuel Modi PA-C When: 09/14/18 @ 9:00 am 09/02/18 0731 <Electronically signed by Samuel Modi PA-C> Date Samuel Modi PA-C CC: DO Diomedes Greer; Kaiser Mares MD CBC-COMPLETE BLOOD CNT Collected: 09/02/2018 Status: F Source: SISI NO DIFF 5:58 AM [facility] REPOSITORY TYPE CODE TESTS RESULT OUT OF RANGE REFERENCE UNITS LAB L100.1000 4.4-11.0 K/mm3 Normal WBC 8.7 LAB L100.1200 4.2-5.4 M/mm3 Low RBC 3.27 LAB L100.1300 12.0-15.0 g/dl Low HGB 10.1 LAB L100.1400 37-47 % Low HCT 31.1 LAB L100.1500 81-99 fL Normal MCV 95.1 LAB L100.1600 27.0-32.0 pg Normal MCH 30.9 LAB L100.1700 32-36 g/gl Normal MCHC 32.5 LAB L100.1810 11.6-14.6 % Normal RDW CV 14.0 LAB L100.1820 35.1-43.9 fl High RDW SD 46.0 LAB L100.1900 150-450 K/mm3 Normal PLT 153 LAB L100.2000 6.2-12.0 fl Normal MPV 10.7 Performed By: #### L100.0500 #### [facility] [address] [place], [address] BASIC METABOLIC Collected: 09/02/2018 Status: F Source: RIDGELY PROFILE (BMP) 5:58 AM [facility] REPOSITORY TYPE CODE TESTS RESULT OUT OF RANGE REFERENCE UNITS LAB L501.0100 74-106 mg/dL Normal GLU 104 Result Comment: Fasting Glucose result from 100 to 125 mg/dL suggests IMPAIRED HOMEOSTASIS per A.D.A. criteria. Please note revised GLUCOSE reference range effective 2017. LAB L501.1000 7-18 mg/dL Normal BUN 12 LAB L501.1100 0.55-1.02 mg/dL Normal CREAT,SERUM 0.71 Result Comment: The validity of the calculated GFR AND GFRAA in patients over 70 years has not been determined. Clinical correlation is essential. LAB L501.1110 >60 mL/min Normal EST GFR 85 Result Comment: Non- GFR Calc LAB L501.1115 >60 mL/min Normal EST GFR - AA 103 Result Comment: GFR Calc LAB L501.1255 ml/min Normal Estimated CRCL 34.91 LAB L501.1300 10-20 RATIO Normal BUN/CRE 16.9 LAB L501.2200 8.5-10 mg/dL Low .1 CA 7.7 LAB L501.5300 136-14 mmol/L Normal 5 NA 139 LAB L501.5600 3.5-5. mmol/L Normal 1 K 4.2 LAB L501.5900 98-107 mmol/L Normal CL 106 LAB L501.6100 21.0-3 mmol/L Normal 2.0 CO2 28.0 LAB L501.6200 5-15 Normal GAP 5 Performed By: #### L500.2500 #### [facility] [address] [facility] [place], [address] OPERATIVE REPORT Observed: 09/01/2018 Status: F Source: SISI 8:45 AM [facility] REPOSITORY [facility] Medical Records Department [address] [facility] [place] [address] Operative Report 09/01/18 0842 MR#: [id number] Acct: [id number] Name: Chencho DALE Rep #: [id number] : 1945 73 From: Ehsan Watts MD PCP: Diomedes Greer DO Status: ADM IN Y Location: [facility]- Report of Operation Date of Procedure: 09/01/18 Pre-Operative Diagnosis: Left knee primary osteoarthritis Post-Operative Diagnosis: Left knee primary osteoarthritis Surgery/Procedure Performed:: Left cemented cruciate retaining total knee replacement Description of Surgical Findings:: Stable knee with good patella tracking collection systems modeler: Samuel Modi Type of Anesthesia:: Spinal Anesthesiologist: Cosme Cazares Special Medications: 2 g Ancef, 2 g TXA in wound at closure, 10 mg Decadron, joint cocktail (5 mg Duramorph, 30 mL of 0.5% Ropivicaine, 1000 units of epinephrine, 30 mg of Toradol) Specimen's removed: Bony cuts Estimated Blood Loss (mL): 50 Fluids Replaced: 1200 mL crystalloid Description of Procedure: Implants used: 1. Ashu size 2 triathlon cruciate retaining distal femoral component 2. Ashu size 2 universal tibial baseplate 3. Ashu X3 9 mm CS polyethylene 4. Ashu X3 29 mm asymmetric patella Brief history operative indications: 73-year-old f with history of left knee osteoarthritis with radiographic findings with loss of joint space, osteophyte formation and subchondral sclerosis. Failed conservative measures as mentioned in the H AND P. Discussion of total knee arthroplasty as well as risk and benefits were discussed the patient including but not limited to blood loss, DVTs, PEs, neurovascular damage, general risk of anesthesia including loss of life, and stiffness or instability were discussed with patient. Patient demonstrated understanding and was able to sign informed consent. Procedure: On the date of procedure patient's left lower extremity was marked in the preoperative area. The patient was then taken back to the operating room where the patient was placed on the table in the supine position. All bony prominences were identified a well-padded. Anesthesia assumed control of the C-spine and airway and remained controlled throughout the remainder of the procedure. A tourniquet was placed on the left upper thigh and the leg was prepped in a sterile fashion. The surgeon then scrubbed at this time .Upon reentering the room left lower extremity was draped in a standard orthopedic fashion. A timeout was then called and everyone agreed upon the side, the site, the procedure to be performed, patient's identity and antibiotics given. Esmarch bandage was used to exsanguinate the extremity and the tourniquet was placed up to 250 mmHg with the knee in flexion. A midline skin incision was made and sharp dissection was taken down through skin subcutaneous tissue and fat. The standard medial parapatellar incision was made and the patella was subluxed laterally. The standard deep MCL release was done and the fat pad was resected. Next our attention was directed to the femur. Navigation pins were placed, navigation was registered. The distal femoral cutting block was pinned into place and 10 mm of distal femur resection was completed. The distal femoral cut was verified with navigation. The knee was then placed in deep flexion in the standard [employer] sizing guide was used to place the femoral component in 3 external rotation based on the posterior condyles. A size 2 4-in-1 cutting block was selected and pinned into place. The anterior cut was then made and checked for notching. The subsequent anterior chamfer cuts, posterior condylar cuts and posterior chamfer cuts were made while ensuring the MCL and LCL were protected. Our attention was then turned to the tibia where the navigation pins were placed, navigation was registered. Alo7 tibial cutting guide was used to make the appropriate tibial cut 90 degrees from the mechanical axis. Navigation was then used to verify the cut. A size 2 tibial base plate was selected. the knee was flexed to 90 degrees and the soft tissues and posterior osteophytes were removed from the joint. 40 cc of the periarticular injection was injected into the posterior medial corner of the joint. The appropriate trials were then placed on the femur and tibia. A trial polyethylene was trialed to ensure proper balancing and stability of the knee. Patella tracking, was then verified and corrected appropriately as needed. The appropriate tibial internal rotation was then marked with a bovie. Our attention was then directed to the patella. The patella was everted and a flat resection was made. The lug holes were drilled and the patella trial was placed. Patellar tracking was checked and deemed appropriate. Once we were happy lug holes were drilled for the femur and trial components were removed. the tibia was subluxed and pinned into place and the keel was punched and the canal was reamed. Final components were verified and opened, and cement was mixed in a vacuum. [place] Simplex cement was used. The wound was copiously irrigated with normal saline. When the cement was ready the components were cemented into place starting with the tibia, femur and finally the patella. The trial poly component was placed and the knee was placed in full extension. All excess cement was removed in the process. Once the cement had cured the tracking, alignment and balance were verified and a size 9 mm polyethylene component was placed. Once the final components were placed the wound was copiously irrigated with normal saline solution and the periarticular injection was given. The wound was closed in a layer buckley fashion using #1 vicryl interrupted sutures for the arthrotomy, 2-0 interrupted Vicryl suture for the subcuticular layer and macarena for final skin closure. A sterile compressive dressing was then placed. The patient was then awakened from anesthesia, [facility] and transferred to the PACU for recovery. Post op plan DVT ppx: ASA 81mg, thigh high compression stockings Follow up: in office in 2 weeks for wound check PT: to start POD #0 at hospital, outpatient PT should be arranged. My physician litigation assistant was a vital part of this case. He was important in appropriate retraction during the case, and protection of soft tissues during bony cuts. His intimate knowledge of the case and my steps aided in safe and expedient completion of the procedure as well as appropriate position of the leg during the case. He was also vital in assisting with closure under my direct supervision. Grafts/Implants Used: Ashu triathlon total knee - Complications None - Admit VTE Documentation VTE Present on Admission: No VTE Mechan Device Prophylaxis: SCD's, Thigh High LISA Hose VTE Pharm Prophylaxis ordered?: Yes 09/01/18 0845 <Electronically signed by Ehsan Watts MD> Date Ehsan Watts MD CC: DO Diomedes Greer; Ehsan Watts MD Signed KNEE 1 OR 2 VIEWS Observed: 09/01/2018 Status: F Source: SISI 7:04 AM [facility] REPOSITORY [facility] Imaging Services [address] [place] [address] Knee 1 or 2 Views MR#: [id number] Acct: [id number] Name: Chencho DALE Rep #: [id number] : 1945 F 73 From: Adama Benson MD PCP: Diomedes Greer DO Status: ADM IN Study: Knee 1 or 2 Views Date of Exam: 09/01/18 Exam# [id number] Ordering Dr: Ehsan Watts MD STUDY: X-RAY - LEFT KNEE REASON FOR EXAM: Postop. TECHNIQUE: 2 view(s) of the knee. COMPARISON: None. FINDINGS: There is a left total knee arthroplasty without evidence of complication. There are overlying skin macarena and postoperative gas in the soft tissues. There is vascular calcification. RAD/Knee 1 or 2 Views IMPRESSION: Uncomplicated left total knee arthroplasty. Electronically Signed: Adama Benson MD at 12:22 EDT Tel , Service support , CC: DO Diomedes Watts MD Maintenance And Utilities Supervisor: Signed HISTORY AND PHYSICAL Observed: 08/18/2018 Status: F Source: RIDGELY EXAM 8:56 PM [facility] REPOSITORY [facility] Medical Records Department [address] [place] [id number] History and Physical 08/18/182055 MR#: [id number] Acct: [id number] Name: Chencho DALE Rep #: [id number] : 1945 73 From: Samuel Modi PA-C PCP: Diomedes Greer DO Status: PRE IN Y [place] [facility] History and Physical DATE OF SURGERY: 09/01/2018 SCHEDULED PROCEDURE: Left total knee arthroplasty HISTORY OF PRESENT ILLNESS: This is a 73-year-old female whose been having ongoing pain for several years. Her pain is been intermittent, aching, and sharp. She has increased pain with going up and down stairs and sitting for extended periods of time. She feels weakness in the right knee. She has increased pain with prolonged walking. Pain is over the medial joint line bilaterally. She does have start up pain. Patient states the pain does waken her at night. Patient has tried previous corticosteroid injections with only 3 months of relief. She has had multiple injections. She has also tried rest, heat, home exercises with minimal relief. She has tried ice and elevation with no relief in symptoms. She has tried oral medications consisting of ibuprofen and Tylenol with minimal relief. Patient denies previous surgery on both knees. She has tried a brace with no relief in symptoms. Patient currently denies any chest pain, shortness of breath, fevers chills, recent infections. Patient has a medical history pertinent for hypertension, asthma, previous heart catheterization in May 2017 followed by aortic valve replacement on June 30, 2017. We'll obtain surgical clearance from patient's paint tester. We're also obtaining surgical clearance from patient's primary care physician Dr. Greer. After failing conservative measures and discussing all treatment options with Dr. Ehsan Watts, the patient does wish to proceed with a left total knee arthroplasty. REVIEW OF SYSTEMS: ROS: Const: Denies anorexia, anxiety, change in appetite, fever, hard of hearing, vision problems and weight change. CV: Denies chest pain, heart murmur, irregular heartbeat and peripheral vascular disease. Resp: Reports asthma, but denies cough, pneumonia, sleep apnea, SOB, tuberculosis and wheezing. GI: Denies constipation, diarrhea, difficulty swallowing, heartburn, nausea, bloody stools and vomiting. : Urinary: denies incontinence. Musculo: Denies leg swelling, limp, trouble walking and weakness. Skin: Denies Raynaud's, history of shingles and tattoo. Neuro: Denies ambulatory dysfunction, dizziness, numbness/tingling and tremor. Psych: Denies anxiety, depression, insomnia, mental illness and stress. Fredy/Lymph: Reports anemia, but denies bleeding/bruising tendency and past transfusion. Reviewed, no changes. PAST MEDICAL HISTORY: Advance Care Plan: Other Directive, P.O.A. Effective Date: 06/25/2018 Other Directive, LIVING WILL Effective Date: 06/25/2018 PMH: Medical Problems: Arthritis, Asthma, High Blood Pressure Accidents: Fracture - (1997) LT LEG Surgical Hx: Carpal Tunnel Release Lt, Carpal Tunnel Release Rt Rotator Cuff Repair Lt - (2001) [facility] Rotator Cuff Repair RT - (2001) [facility] Cyst - (1966) OVARIAN RT Second Hammer Toe Repair - (09/03/2012) [facility] @ [facility] Aortic Valve Replaced Tonsillectomy - ADENOIDS Anesthesia Complications: None Assistive Devices: None Reviewed and updated. 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 Personal Habits: Smoking: Patient has never smoked.Cigarette Use: Never.Alcohol: Denies use.Drug Use: Denies Use.Enjoy Exercising: Daily. Reviewed, no changes. VITALS: Ht: 60.5 Wt: 136lb Wt k.690 BMI: 26.1 BP: 170/88 Pulse: 68 Resp: 20 T: 98.0 T: 36.7C ALLERGIES: No Known Drug Allergy MEDICATIONS: Meloxicam 15 mg 1 by mouth every day, Advair Diskus 500/50 twice daily, Aspirin 81 mg 1 po EVERY OTHER DAY, Calcium/Vitamin D 600mg 1 tab PO tid, Arthromend With MSM 1 PO bid, Vitamin C 1000mg 1 tab PO bid, Trazodone HCL 50 mg 1 tab PO qhs, Vitamin E 400 mg 1 tab PO tid, Ibuprofen 200 mg 2 tablets po for pain prn, Tylenol 325 mg as needed, Tramadol HCL 50 mg 1-2 by mouth every 4-6 hours as needed pain, Gabapentin 400 mg 1 cap PO tid, Ferrous Sulfate 325 (65 Fe) MG 1 tab PO daily, Carvedilol 12.5 mg 1 1/2 PO bid, Cyclobenzaprine HCL 5 mg 1 tab PO bid, Montelukast Sodium 10 mg 1 by mouth every day, Pantoprazole Sodium 40 mg 1 tab PO daily, Breo Ellipta 100-25 mcg/Inh 1 puff PO daily, Chlorthalidone 25 mg 1 tab by mouth every morning, Lasix 20 mg 1 by mouth every day, Loratadine 10 mg one PO daily PRE-OP EXAM: General appearance:NORMAL Other: Eyes: Conjunctivae and lids: NORMAL Pupils: ERR Ears, Nose, Mouth, and Throat: NORMAL Other: Inspection of lips, teeth and gums: NORMAL Other: Neck: Examination of neck: no masses noted. Respiratory: Assessment of respiratory effort: NORMAL Other: Auscultation of lungs: clear to auscultation no wheezes, rhonchi or rales. Cardiovascular: Auscultation of heart: regular rate and rhythm, no murmurs, gallops or rubs. Exam of carotid arteries: NORMAL Other: Gastrointestinal: Exam of abdomen: soft, nontender, nondistended bowel sounds present. PHYSICAL EXAMINATION: Patient walks with an antalgic gait. Patient's left knee is cool to touch without erythema. Patient does have effusion of the left knee. There is tenderness to palpation of the medial joint line. Patient does have varus alignment. Range of motion lacks 5 of extension to 110 of flexion. Stable to varus valgus stress test. Sensation intact to light touch. Neurovascularly intact. IMAGING STUDIES: X-rays of bilateral knees reveal varus alignment with medial joint space narrowing, subchondral sclerosis, osteophyte formation consistent with severe tricompartmental osteoarthritis bilaterally. IMPRESSION: 1. Severe left knee tricompartmental osteoarthritis 2. Severe right knee tricompartmental osteoarthritis 3. Hypertension 4. Asthma 5. History of heart catheterization and aortic valve replacement June 2017 PLAN: Dr. Watts did discuss and review with the patient all treatment options including surgical versus nonsurgical options. Patient does wish to proceed with the above-stated procedure. Potential risks, benefits, and complications of the procedure were discussed in detail including but not limited to , infection, nerve and blood vessel damage, persistent pain, numbness, tingling, paresthesias, blood clot, pulmonary embolism, and requirement for possible further surgery. The patient expressed full understanding and has no further questions for the doctor. Patient does agree to proceed with the above-stated procedure and has signed the surgery consent form. ___ I have re-examined the patient. There are no clinical changes since date of exam. ___ See progress notes for changes. ___ Dictated on admission Date: Time: Signature: 08/18/182055 <Electronically signed by Samuel Modi PA-C> Date Samuel Do Signature: Date (if applicable) CC: DO Diomedes Greer; Samuel ZAVALETA Signed Observed: 08/17/2018 Status: F Source: RIDGELY MRSA/SAID SCREEN 11:59 AM [facility] REPOSITORY MRSA/SAID SCRN S. AUREUS S. aureus Negative MRSA MRSA Negative Performed By: #### M100.651 #### [facility] [address] [place], [address] CBC W/DIFF, AUTOMATED Collected: 08/17/2018 Status: F Source: RIDGELY 11:54 AM [facility] REPOSITORY TYPE CODE TESTS RESULT OUT OF RANGE REFERENCE UNITS LAB L100.1000 4.4-11.0 K/mm3 Normal WBC 7.2 LAB L100.1200 4.2-5.4 M/mm3 Low RBC 3.97 LAB L100.1300 12.0-15.0 g/dl Normal HGB 12.2 LAB L100.1400 37-47 % Normal HCT 37.7 LAB L100.1500 81-99 fL Normal MCV 95.0 LAB L100.1600 27.0-32.0 pg Normal MCH 30.7 LAB L100.1700 32-36 g/gl Normal MCHC 32.4 LAB L100.1810 11.6-14.6 % Normal RDW CV 14.0 LAB L100.1820 35.1-43.9 fl High RDW SD 46.4 LAB L100.1900 150-450 K/mm3 Normal PLT 199 LAB L100.2000 6.2-12.0 fl Normal MPV 10.5 LAB L100.2100 47-70 % Normal NEUT% 59.2 LAB L100.2200 19-41 % Normal LY% 26.9 LAB L100.2300 0-10 % Normal MONO% 9.7 LAB L100.2400 0-5 % Normal EO% 3.7 LAB L100.2500 0-1 % Normal BASO% 0.4 LAB L100.2550 0.0-0.9 % Normal IM GRAN % 0.100 Result Comment: IG% - Immature Granulocytes (promyelocytes, myelocytes and metamyelocytes) > 1% indicates that a LEFT SHIFT is Present. LAB L100.2620 2.0-7.7 X10 3/uL Normal Absolute Neut 4.3 LAB L100.2720 0.83-4.51 X10 3/ul Normal Absolute Lymph 1.94 Performed By: #### L100.0100 #### [facility] [address] [place], [place], [id number] BASIC METABOLIC Collected: 08/17/2018 Status: F Source: SISI PROFILE (BMP) 11:54 AM [facility] REPOSITORY TYPE CODE TESTS RESULT OUT OF RANGE REFERENCE UNITS LAB L501.0100 74-106 mg/dL Normal GLU 90 Result Comment: Please note revised GLUCOSE reference range effective 2017. LAB L501.1000 7-18 mg/dL Normal BUN 13 LAB L501.1100 0.55-1.02 mg/dL Normal CREAT,SERUM 0.75 Result Comment: The validity of the calculated GFR AND GFRAA in patients over 70 years has not been determined. Clinical correlation is essential. LAB L501.1110 >60 mL/min Normal EST GFR 80 Result Comment: Non- GFR Calc LAB L501.1115 >60 mL/min Normal EST GFR - AA 96 Result Comment: GFR Calc LAB L501.1255 ml/min Normal Estimated CRCL 34.91 LAB L501.1300 10-20 RATIO Normal BUN/CRE 17.3 LAB L501.2200 8.5-10 mg/dL Normal .1 CA 8.8 LAB L501.5300 136-14 mmol/L Normal 5 NA 143 LAB L501.5600 3.5-5. mmol/L Normal 1 K 4.4 LAB L501.5900 98-107 mmol/L Normal CL 107 LAB L501.6100 21.0-3 mmol/L Normal 2.0 CO2 29.0 LAB L501.6200 5-15 Normal GAP 7 Performed By: #### L500.2500 #### [facility] [address] [place], [address] XR CHEST 2 VIEWS Observed: 07/31/2018 Status: F Source: [place] [facility]ans 12:03 PM [facility] REPOSITORY ORIGINAL XR CHEST 2 VIEWS CLINICAL STATEMENT: persistent asthma COMPARISON: 11/18 17 FINDINGS:The cardiac contours are stable demonstrating moderate enlargement with postoperative change to the sternum and mediastinum. Pleural thickening along the LEFT cardiac contours is noted. There i s a hiatal hernia present. No pulmonary vascular congestion or consolidation is present. There is no pleural effusion or pneumothorax. Degenerative changes present in the spine IMPRESSION:No acute process or interval change Interpreted By: Aysha Rosenthal MD Preliminary Report By: Aysha Rosenthal MD Electronically Signed By: Aysha Rosenthal MD Dictated Date: 07/31/2018 2:13:13 PM Prelim Date: 07/31/2018 2:13:13 PM Sign Date: 07/31/2018 2:13:49 PM PFS Observed: 07/24/2018 Status: UNK Source: [facility] 8:27 AM [facility] REPOSITORY PULMONARY FUNCTION TEST DATE OF SERVICE: 07/24/2018 DIAGNOSIS: Asthma. ORDERING PHYSICIAN: Abilio Mcduffie MD PHYSICIAN INTERPRETATION: Spirometry reveals normal ratio of FEV1 and FVC. FEV1 ranges from 78% to 81% of predicted. FVC is 80% of predicted. No significant bronchodilator reversibility is noted. Lung volume measurements by nitrogen washout reveal normal total lung capacity and residual volume. Diffusion capacity is reduced at 65% of predicted and corrects to 82% of predicted when adjusted for alveolar ventilation. The flow volume loop shows a mixed restrictive and obstructive pattern. IMPRESSION: Taking into account the artifacts noted during the test, the current measurements of spirometry, lung volumes and diffusion capacity are overall within normal range. The pulmonary function testing could be normal in patients with asthma in between the asthma episodes. If further objective testing is required, a methacholine challenge test may be considered. Abilio Mcduffie MD [id number] SSI File#: [id number] PREDICTED ACTUAL % PREDICTED FVC: FEV1: FEV1/FVC% : PEF: PT EFFORT: PATIENT POSITION: COMMENTS: INTERPRETATION: Verified/Reviewed by *@ [facility] PATIENT NAME: JULIO CESAR DALE [address] [address] Jhaveri MEDICAL REC. #: [id number] [place] [address] ACCOUNT NUM: [id number] ADMIT DATE: DISCHARGE DATE: PULMONARY FUNCTION REPORT ATTENDING PHY: Abilio Mcduffie MD *@ BONE DENSITY DEXA Observed: 05/18/2018 Status: F Source: [facility] AXIAL SKELETON 9:00 AM [facility] REPOSITORY ORIGINAL BONE DENSITOMETRY CLINICAL STATEMENT: OSTEOPENIA COMPARISON: 08/28/2015 T Score Left Femoral Neck: -1.5 BMD (g/cm2) Left Femoral Neck: 0.680 T Score Left Hip: -0.9 BMD (g/cm2) Left Hip: 0.834 T Score Lumbar Spine L1-L4: -0.9 BMD (g/cm2) Lumbar Spine L1-L4: 0.943 CONCLUSION: The patient is considered osteopenic based on the left femoral neck which has a T score of -1.5. BMD Change from previous Hip: -5.4% % BMD Change from previous Lumbar Spine: -10% % *By the World Health Organization standards: Osteopenia is present when the bone mineral density is greater than 1 standard deviation (SD) but less than 2.5 SDs below a young normal sex matched populati on. Osteoporosis is present when the bone mineral density is equal to or greater than 2.5 SDs below a young normal sex matched population. Interpreted By: Smith Banda MD Preliminary Report By: Smith Banda MD Electronically Signed By: Smith Banda MD Dictated Date: 05/18/2018 9:20:09 AM Prelim Date: 05/18/2018 9:20:09 AM Sign Date: 05/18/2018 9:21:06 AM LIPID Collected: 05/06/2018 Status: F Source: [place] Botanical Tans 9:48 AM [facility] REPOSITORY TYPE CODE TESTS RESULT OUT OF REFERENCE UNITS RANGE LAB CHOL(LOINC 131-200 mg/dL ) Cholesterol High 204 Result Comment: Cholesterol Reference Interval: Less than 200 Desirable 200-239 Borderline high risk 240 and above High risk LAB TRIG(LOINC) 40-150 mg/dL Triglycerides 139 Result Comment: Triglyceride Reference Interval: Less than 150 Normal 150-199 Borderline high risk 200-499 High risk 500 or higher Very high risk LAB HD(LOINC) 35-90 mg/dL HDL Cholesterol 60 Result Comment: HDL Reference Interval: Less than 40 Low - high risk 60 or above Optimal/lowers risk LAB LDL(LOINC) 0-130 mg/dL LDL Cholesterol 116 Result Comment: LDL is a calculated result and requires a 12-hr fast. LDL Reference Interval: Less than 100 Optimal 100-129 Near or above optimal 130-159 Borderline high risk 160-189 High risk 190 and above Very high risk Performed By: #### LIPID, GFR, HGMP, CMP, 125VTD #### [place] [address] .GFR Collected: 05/06/2018 Status: F Source: [place] Botanical Tans 9:48 AM [facility] REPOSITORY TYPE CODE TESTS RESULT OUT OF REFERENCE UNITS RANGE LAB GFRAA(LOINC ml/min/1.73 ) sqm GFR 103 [place] Result Comment: GFR Population mean for , Non- Americans Ages 20-29 = 116 mL/min/1.73 sq.m. Ages 30-39 = 107 mL/min/1.73 sq.m. Ages 40-49 = 99 mL/min/1.73 sq.m. Ages 50-59 = 93 mL/min/1.73 sq.m. Ages 60-69 = 85 mL/min/1.73 sq.m. Ages 70+ = 75 mL/min/1.73 sq.m. Chronic Kidney Disease: Less than 60 mL/min/1.73 square meters End Stage Renal Disease: Less than 15 mL/min/1.73 square meters LAB GFRNO(LOINC) ml/min/1.73sqm GFR Non- >60 Result Comment: GFR Population mean for , Non- Americans Ages 20-29 = 116 mL/min/1.73 sq.m. Ages 30-39 = 107 mL/min/1.73 sq.m. Ages 40-49 = 99 mL/min/1.73 sq.m. Ages 50-59 = 93 mL/min/1.73 sq.m. Ages 60-69 = 85 mL/min/1.73 sq.m. Ages 70+ = 75 mL/min/1.73 sq.m. Chronic Kidney Disease: Less than 60 mL/min/1.73 square meters End Stage Renal Disease: Less than 15 mL/min/1.73 square meters Performed By: #### LIPID, GFR, HGMP, CMP, 125VTD #### [place] [address] [address] HGMP Collected: 05/06/2018 Status: F Source: [facility] 9:48 AM [facility] REPOSITORY TYPE CODE TESTS RESULT OUT OF REFERENCE UNITS RANGE LAB WBC(LOINC) 4.60-10.80 10 3/mcL WBC 5.80 LAB RBCCT(LOINC 4.20-5.40 10 6/mcL ) RBC 4.32 LAB HGB(LOINC) 12.0-16.0 G/dL Hgb 13.7 LAB HCT(LOINC) 37.0-47.0 % Hct 40.8 LAB MCV(LOINC) 80.0-94.0 fL High MCV 94.4 LAB MCH(LOINC) 27.0-31.2 pg High MCH 31.8 LAB MCHC(LOINC) 33.0-37.0 G/dL MCHC 33.7 LAB RDW(LOINC) 11.5-14.5 % RDW 13.2 LAB PLT(LOINC) 130-400 10 3/mcL Platelet 192 LAB MPV(LOINC) 7.4-10.4 fL MPV 9.0 Performed By: #### LIPID, GFR, HGMP, CMP, 125VTD #### [place] [address] [address] CMP Collected: 05/06/2018 Status: F Source: [facility] 9:48 AM [facility] REPOSITORY TYPE CODE TESTS RESULT OUT OF REFERENCE UNITS RANGE LAB GLU(LOINC) 83-110 mg/dL Glucose High Level 112 LAB NA(LOINC) 136-146 mEq/L Sodium Level 138 LAB K(LOINC) 3.5-5.1 mEq/L Potassium Level 4.8 LAB CL(LOINC) 98-107 mEq/L Chloride 102 LAB CO2(LOINC) 23-31 mEq/L CO2 27 LAB EBAL(LOINC mEq/L ) Electrolyte Balance 9.0 LAB BUN(LOINC) 7.0-18.0 mg/dL BUN 13.3 LAB CRE(LOINC) 0.6-1.2 mg/dL Creatinine Lvl (s) 0.7 LAB BC(LOINC) 7-27 ratio BUN/Creatinine 19 Ratio LAB CA(LOINC) 8.4-10.2 mg/dL Calcium Lvl 9.5 LAB PROT(LOINC 6.0-8.3 G/dL ) Total Protein 6.9 LAB ALB(LOINC) 3.4-4.8 G/dL Albumin Level 4.3 LAB GLB(LOINC) G/dL Globulin 2.6 LAB AG(LOINC) 1.1-2.5 ratio A/G Ratio 1.7 LAB BILT(LOINC 0.2-1.0 mg/dL ) Bili Total 0.7 LAB AP(LOINC) 40-135 IU/L Alk Phos 84 LAB AST(LOINC) 10-40 IU/L AST/SGOT 32 LAB ALT(LOINC) 10-35 IU/L ALT/SGPT 22 Performed By: #### LIPID, GFR, HGMP, CMP, 125VTD #### [address] [address] VIDD Collected: 05/06/2018 Status: F Source: [facility] 9:48 AM [facility] REPOSITORY TYPE CODE TESTS RESULT OUT OF RANGE REFERENCE UNITS LAB VIDDH(LOINC 15.0-60.0 pg/mL ) Vit. D 32.3 1,25 Dihydro. Result Comment: This test was developed and its performance characteristics determined by [facility]'s [facility] Pathology and Laboratory Medicine [place] ([facility]). It has not been cleared or approved by the FDA. [facility] is regulated under CLIA as qualified to perform high-complexity testing. This test is used for clinical purposes. It should not be regarded as investigational or for research. Performed By: [facility] [address] [place] [id number] Senior Software Engineer Analytics: Génesis Rangel M.D. CLIA#: [id number] Phone#: LAB 125D2(LOINC) pg/mL Vitamin D2 1,25 <4.0 Result Comment: Performed By: [facility] [place] [address] Senior Software Engineer Analytics: Génesis Rangel M.D. CLIA#: [id number] Phone#: LAB 125D3(LOINC) pg/mL Vitamin D3 1,25 32.3 Result Comment: Performed By: [facility] HospitalAetel.inc ([place] [address] Senior Software Engineer Analytics: Génesis Rangel M.D. CLIA#: [id number] Phone#: Performed By: #### LIPID, GFR, HGMP, CMP, 125VTD #### [place] [address] [place], [place] [address] XR CHEST 2 VIEWS Observed: 11/18/2017 Status: F Source: Player[facility] 8:46 AM [facility] REPOSITORY ORIGINAL Chest 2 views HISTORY: Exacerbation of asthma COMPARISON: 09/17/2017 The heart is normal in size and there is no vascular congestion present. There is minimal scarring at the left midlung. There is a small hiatal hernia present. No consolidation or pleural fluid seen. Th ere are minor degenerative changes noted in the spine. Degenerative and postoperative changes are seen at the shoulders. IMPRESSION: No acute process. Interpreted By: Doug Mathis MD Preliminary Report By: Doug Mathis MD Electronically Signed By: Doug Mathis MD Dictated Date: 11/18/2017 9:06:31 AM Prelim Date: 11/18/2017 9:06:31 AM Sign Date: 11/18/2017 9:07:26 AM ALLERGIES ALLERGIES DATE TYPE / CODE NAME / CODE REACTION SEVERITY SOURCE 10/07/2018 Drug No Known Unknown [facility] Allergy/4160 Allergies/F00 Hospital 09334(SNOMED 1336025(RXNOR Repository CT) M) ENCOUNTERS ENCOUNTERS ADMIT/DISCHARGE ACCOUNT NUMBER ADMITTING ENCOUNTER LOCATION SOURCE CLASS 10/28/2018 [id number] Ambulatory BBuilding:[facility] Repository 10/21/2018/10/22/20 [id number] Stefanie, Inpatient [facility] 18 Ehsan Encounter [facility] ding:[id number] Repository : [id number]: 1 10/21/2018 [id number] Stefanie, Ambulatory BMSBuilding: [place] Ehsan BMS.[facility] Repository 10/21/2018 [id number] Stefanie, Ambulatory BMSBuilding: [facility] Ehsan BMS.[facility] Repository 10/14/2018/10/14/20 [id number] [facility] [address] [place] [address] Repository 09/04/2018 [id number] Ambulatory BBuilding:[facility] Repository 09/01/2018/09/02/20 [id number] Stefanie, Inpatient S[place] Sisi 18 Ehsan Encounter [facility] ding:[id number] Repository : MD128Uqw: 1 09/01/2018 [id number] Stefanie, Ambulatory BMSBuilding: [facility] Ehsan BMS.[facility] Repository 09/01/2018 [id number] Stefanie, Ambulatory BMSBuilding: [place] Ehsan BMS.[facility] Repository 07/31/2018/07/31/20 [id number] Ambulatory [address] ding:RAD [facility] Repository 07/24/2018 [id number] [facility] ng[facility]H.PFT 05/18/2018/05/18/20 [id number] Ambulatory BBuilding:RA [facility] Repository 05/06/2018/05/06/20 [id number] Ambulatory [address] ding:OLAB [facility] Repository 11/18/2017/11/18/20 [id number] Ambulatory [address] ding:RAD [facility] Repository PAYERS PAYERS ENCOUNTER GUARANTOR PAYER SUBSCRIBER SOURCE 10/28/2018 JULIO CESAR Paiz Primary [facility]UL[facility]: [facility]NA [facility] LEANDOB: [facility] [id number] CHOICE MEDICAREPolicy [id number] Repository NAVEED SORIANO Number: [address] [place], [place] [id number], [address]~[id number] Date:2018-10-19 [address]71[address]Drv: 43@[email or web address] CENTERel: [id number] Name:NPO Box (HP)Tel: (000) (HP)Tel: [phone]) [address] [place] [address] [phone] () [phone] () [address]CT: 10/21/2018 C ROZELLA Primary C ROZELLA [place] [id number] Insurance:HUMANA LEHMANDOB: Community [address] MEDICARE PPOPolicy [id number] Number: Repository [address]Ylt: 330 [id number] [phone] () Date:1397-81-47PF [address] [place] [address]HM: 10/21/2018 Secondary NOT GIVENUNK [facility] Insurance:SELF PAY [facility] Number: Effective Repository Date:2018-07-01 10/21/2018 C ROZELLA Primary C ROZELLA [facility] [id number] Insurance:HUMANA LEANDOB: Community [address] MEDICARE PPOPolicy [id number], [place] Number: Repository [address]Mtf: 330 [id number] [phone] () Date:[id number] [address]FQ: 10/21/2018 Secondary NOT GIVENUNK [facility] Insurance:SELF PAY [facility] Number: Effective Repository Date:2018-10-21 10/21/2018 C ROZELLA Primary C ROZELLA [facility] [id number] Insurance:HUMANA LEHMANDOB: Community [place] [address] MEDICARE PPOPolicy [id number] Number: Repository [id number]: [phone] [id number] [phone] (HP) Date:3083-99-81PF [address] [place] [address]CS: 10/21/2018 Secondary NOT GIVENUNK [place] Insurance:SELF PAY [facility] Number: Effective Repository Date:2018-10-21 10/14/2018 ROROMELA C Primary [facility]HUMANA [facility]OB: [facility] CHOICE MEDICAREPolicy [id number] Repository [address] Number: [address] [facility] [place] [id number] [facility], [address]~[id number] Date:2018-09-15 [address]Wmi: [email or web address]: [phone] Name:NPO Box (HP)Tel: (000) (HP)Tel: [phone], [place] 000[address] (WP) [phone] (LT) [address]YF: 09/04/2018 ROROMELA C Primary JULIO [facility]: Insurance:HUMANA [facility]: [facility] [id number] CHOICE MEDICAREPolicy [id number] Repository [address] Number: [address] [place], [place] [id number] RDSCAND[place], [address]~[id number] Date:2018-08-17 [place] [address]Cif: [email or web address]: [phone] Name:NPO Box (HP)Tel: (000) (HP)Tel: [phone], [place] [address] (WP) [phone] (WP) [address]FO: 09/01/2018 C ROZELLA Primary C ROZELLA [place] [id number] Insurance:HUMANA LEHMANDOB: [facility] [address] MEDICARE PPOPolicy [id number] Number: Repository [address]Ygu: 330 [id number] [phone] (HP) Date:9689-50-13ZR [address] [address]VH: 09/01/2018 Secondary NOT GIVENUNK [place] Insurance:SELF PAY [facility] Number: Effective Repository Date:2018-06-26 09/01/2018 C ROZELLA Primary C ROZELLA [facility] [id number] Insurance:HUMANA LEHMANDOB: Community [address] MEDICARE PPOPolicy [id number] Number: Repository [address]Dyd: 330 [id number] [phone] () Date:1113-10-79QX [address] [address]OD: 09/01/2018 Secondary NOT GIVENUNK [place] Insurance:SELF PAY [facility] Number: Effective Repository Date:2018-09-01 09/01/2018 C ROZELLA Primary C ROZELLA [place] [id number] Insurance:HUMANA LEHMANDOB: Community [address] MEDICARE PPOPolicy [id number], [place] Number: Repository [address]Uma: 330 [id number] [phone] () Date:8392-28-31MC [address] [address]KA: 09/01/2018 Secondary NOT GIVENUNK [facility] Insurance:SELF PAY [facility] Number: Effective Repository Date:2018-09-01 07/31/2018 ROZELLA C Primary ROZELLA C [facility] LEANDOB: Insurance:HUMANA GOLD LEANDOB: [facility] [id number] CHOICE MEDICAREPolicy [id number] [place] [address] Number: [address] [place], [place] [id number] [place], [address]~[id number] Date:2018-07-31 [place] [address]Vpr: 43@[facility].COX BRANSONel: [phone] Name:NPO Box (HP)Tel: (000) (HP)Tel: [phone], [place] [address] (WP) [phone] (WP) [address]TM: 07/24/2018 ROZELLA Primary [facility] Insurance:[facility] NAVE[address] CHOICE O [facility] Repository [place], [place] Number: [id number]: 330 [id number] [phone] (HP) Date:[id number] [address] [place] [address]PJ: 05/18/2018 [facility]: Insurance:[facility]: [facility] CHOICE MEDICAREPolicy [id number] Repository [address] Number: [address] [place] [place] [id number] [address] [place], [address]~[id number] Date:2018-05-07 [place] [address]Jza: 43@[facility].COX BRANSONel: [id number] Name:NPO Box (HP)Tel: (000) (HP)Tel: [phone]) [phone], [place] [address] (WP) [phone] (WP) [address]UB: 05/06/2018 C [facility]: Insurance:HUMANA [facility]ANDOB: [facility] CHOICE MEDICAREPolicy [id number] Repository [address] Number: [address] [place] [place] [id number] [address] [place], [address]~[id number] Date:2018-05-06 [address]Cql: 43@[facility].COMTel: [phone] Name:NPO Box (HP)Tel: (000) (HP)Tel: [phone]) [phone], [place] [address] (WP) [phone] (WP) [address]CF: 11/18/2017 [facility]-DSMOB: [facility]: [facility] [id number] CHOICE MEDICAREPolicy [id number] Repository NAVEED SORIANO Number: [address] [place], [place] [id number] [place], [address] [id number] Date:2017-11-18 [address]573Ehm: 43@[facility].COMTel: [id number] Name:NPO Box (HP)Tel: (000) (HP)Tel: [phone]) [id number], [place] 000[address] (WP) [phone] (WP) [address]SA:
== END 2018-10-22 14:45 | disposition home or self-care (01) | DRG 470 ==
LOC: ACINP 05:28 → MS3 08:24
PROVIDERS: Admitting Provider Specialist; Family Provider Family Medicine; PCP Family Medicine; Referring Provider Specialist; Visit Provider Internal Medicine
PROC: 0SRC0J9 Replacement of Right Knee Joint with Synthetic Substitute, Cemented, Open Approach (ICD-10-PCS; CPT 27447; principal; 2018-10-21 07:00)
DX: M17.11 Unilateral primary osteoarthritis, right knee (principal); I10 Essential (primary) hypertension; Z96.652 Presence of left artificial knee joint; J45.909 Unspecified asthma, uncomplicated; Z79.899 Other long term (current) drug therapy; Z95.2 Presence of prosthetic heart valve
CPT/HCPCS: 36415; 73560; 80048; 85025; 85027; 87081; 97110; 97161; 97165; 97530; 99251; C1776; J7120; A4216; G0463; J2405

== ENCOUNTER 2022-09-04 08:03 | Outpatient (RCR) | payer MEDICARE, SELFPAY | END 2022-09-04 23:59 | disposition home or self-care (01) | LOC: WC 08:03 | PROVIDERS: PCP Family Medicine; Referring Provider Internal Medicine Cardiovascular Disease; Visit Provider Internal Medicine Cardiovascular Disease | DX: Z09 Encounter for follow-up examination after completed treatment for conditions other than malignant neoplasm (principal) ==

== ENCOUNTER → 2022-09-19 | Outpatient (CLI) | payer MEDICARE, SELFPAY ==
[2022-09-19 12:39] LABS: Basophil# 0.06 X10^3/uL; Eosinophil# 0.17 X10^3/uL; Eosinophils% 2.8 % (0-5); Hematocrit 37.6 % (37-47); Hemoglobin 11.8 g/dL (12.0-15.0); Lymphocyte % 34.7 % (19-41); Mean Corp Hgb Conc 31.4 g/dL (32-36); Mean Corpuscular Hgb 31.5 pg (27.0-32.0); Mean Corpuscular Volume 100.3 fL (81-99); Mean Platelet Vol. 9.9 fl (6.2-12.0); Monocyte# 0.74 X10^3/uL; Monocyte% 12.2 % (0-10); NRBC Flagged by Analyzer 0 % (0-5); Neutrophil # 2.97 X10^3/uL (2.7-7.7); Neutrophil % 49.1 % (47-70); Platelet Count 288 K/mm3 (150-450); RBC Distribution Width CV 13.8 % (11.6-14.6); Red Blood Count 3.75 M/mm3 (4.2-5.4); White Blood Count 6.1 K/mm3 (4.4-11.0)
[2022-09-19 13:07] LABS: LDH 385 U/L (84-246)
[2022-09-20 15:08] LABS: Endomysial Antibody IgA Negative (Negative)
[2022-09-21 09:48] LABS: Immunoglobulin A 240 mg/dL (64-422); t-Transglutaminase IgA <2 U/mL (0-3)
[2022-09-30 18:07] LABS: Immunoglobulin A 236 mg/dL (64-422); Immunoglobulin E 20 IU/mL (6-495); Immunoglobulin G 1036 mg/dL (586-1602)
[2022-10-03 10:18] LABS: Immunoglobulin M 41 mg/dL (26-217)
== END | disposition home or self-care (01) ==
LOC: LAB 11:38
PROVIDERS: PCP Family Medicine; Referring Provider Internal Medicine Gastroenterology; Visit Provider Internal Medicine Gastroenterology
DX: R01.1 Cardiac murmur, unspecified (principal); D50.0 Iron deficiency anemia secondary to blood loss (chronic)
CPT/HCPCS: 36415; 82784; 82785; 83516; 83615; 85025; 86255

== ENCOUNTER → 2022-11-06 | Outpatient (CLI) | payer MEDICARE, SELFPAY ==
[2022-11-10 14:18] LABS: Calprotectin, Stool 134 ug/g (0-120)
== END | disposition home or self-care (01) ==
LOC: LABSPEC 07:43
PROVIDERS: PCP Family Medicine; Referring Provider Internal Medicine Gastroenterology; Visit Provider Internal Medicine Gastroenterology
DX: K52.9 Noninfective gastroenteritis and colitis, unspecified (principal)
CPT/HCPCS: 83630; 83993

== ENCOUNTER → 2022-11-11 | Outpatient (CLI) | payer MEDICARE, SELFPAY ==
--- NOTE | 2022-11-11 09:46 | ECHOTEE_ITS ---
Reason For Study: Prosthetic AoV Stenosis Medication EZEQUIEL probe 6VT-D (SN [id number]) passed without difficulty. No complications were noted. Cetacaine Topical [place] given X3 orally. Versed 1 mg given slow IVP. Fentanyl 50 mcg given slow IVP. Performed a rapid injection of agitated mix of 9 cc saline and 1cc air to assess for atrial septal defect. Left Ventricle Normal LV size. Left ventricular systolic function is normal. The estimated ejection fraction is 65 %. No regional wall motion abnormalities noted. Right Ventricle Normal RV size. Normal systolic function. Atria Normal atrial septum. Bubble contrast study negative for right to left interatrial shunt. Normal left atrium. Normal right atrium. Prominent eustachian valve. Mitral Valve Normal mitral valve. Mild (1+) mitral valve insufficiency. Tricuspid Valve Normal tricuspid valve. Mild tricuspid valve insufficiency. Aortic Valve Peak aortic valve gradient 82 mmHg. Mean aortic valve gradient 51 mmHg. Bioprosthetic aortic valve. The aortic valve area dimensionless index is 0.2. Pulmonic Valve Normal pulmonic valve. Vessels Normal aortic root. The pulmonary artery is normal size. Pericardium No pericardial effusion. MMode/2D Measurements & Calculations LVOT diam: 2.0 cm LVOT area: 3.0 cm2 Doppler Measurements & Calculations Ao V2 max: 455.2 cm/sec LV V1 max: 95.1 cm/sec SV(LVOT): 69.7 ml Ao max P.9 mmHg LV V1 max P.6 mmHg Ao V2 mean: 342.7 cm/sec LV V1 mean P.1 mmHg Ao mean P.6 mmHg LV V1 mean: 70.8 cm/sec Ao V2 VTI: 115.0 cm LV V1 VTI: 23.3 cm AV (velocity ratio): 0.20 SONIYA(I,D): 0.61 cm2 SONIYA(V,D): 0.63 cm2 ECHO/Echo Transesophageal (EZEQUIEL) Interpretation Summary Normal LV size. Left ventricular systolic function is normal. The estimated ejection fraction is 65 %. Bioprosthetic aortic valve. Mean aortic valve gradient 51 mmHg. Peak aortic valve gradient 82 mmHg. The aortic valve area dimensionless index is 0.2. 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
[2022-11-11 10:26] LABS: Absolute Lymphocyte Count 2.05 X10^3/uL (0.83-4.51); Absolute Neutrophil Count 4.6 X10^3/uL (2.0-7.7); Basophil# 0.05 X10^3/uL; Basophil% 0.6 % (0-1); Eosinophil# 0.17 X10^3/uL; Eosinophils% 2.2 % (0-5); Hematocrit 38.9 % (37-47); Hemoglobin 12.2 g/dL (12.0-15.0); Lymphocyte # 2.05 X10^3/ul (0.83-4.51); Lymphocyte % 26.6 % (19-41); Mean Corp Hgb Conc 31.4 g/dL (32-36); Mean Corpuscular Hgb 30.2 pg (27.0-32.0); Mean Corpuscular Volume 96.3 fL (81-99); Mean Platelet Vol. 10.2 fl (6.2-12.0); Monocyte# 0.85 X10^3/uL; NRBC Flagged by Analyzer 0 % (0-5); Neutrophil # 4.58 X10^3/uL (2.7-7.7); Neutrophil % 59.3 % (47-70); Platelet Count 202 K/mm3 (150-450); RBC Distribution Width CV 13.2 % (11.6-14.6); RBC Distribution Width SD 47.5 fl (35.1-43.9); Red Blood Count 4.04 M/mm3 (4.2-5.4); White Blood Count 7.7 K/mm3 (4.4-11.0)
== END | disposition home or self-care (01) ==
PROVIDERS: PCP Family Medicine; Referring Provider Internal Medicine Cardiovascular Disease; Visit Provider Internal Medicine Cardiovascular Disease
DX: R01.1 Cardiac murmur, unspecified (principal); I35.0 Nonrheumatic aortic (valve) stenosis
CPT/HCPCS: 36415; 85025; 87426; 93312; 93320; 93325; C9803; J7040; A4216

== ENCOUNTER → 2022-12-06 | Outpatient (CLI) | payer MEDICARE, SELFPAY ==
[2022-12-06 17:10] LABS: Absolute Lymphocyte Count 2.08 X10^3/uL (0.83-4.51); Absolute Neutrophil Count 3.2 X10^3/uL (2.0-7.7); Basophil# 0.04 X10^3/uL; Basophil% 0.6 % (0-1); Eosinophil# 0.23 X10^3/uL; Eosinophils% 3.5 % (0-5); Hematocrit 37.9 % (37-47); Hemoglobin 12.1 g/dL (12.0-15.0); Lymphocyte # 2.08 X10^3/ul (0.83-4.51); Lymphocyte % 31.7 % (19-41); Mean Corp Hgb Conc 31.9 g/dL (32-36); Mean Corpuscular Hgb 30.3 pg (27.0-32.0); Mean Platelet Vol. 11.3 fl (6.2-12.0); Monocyte# 0.96 X10^3/uL; Monocyte% 14.6 % (0-10); NRBC Flagged by Analyzer 0 % (0-5); Neutrophil # 3.24 X10^3/uL (2.7-7.7); Neutrophil % 49.3 % (47-70); Platelet Count 215 K/mm3 (150-450); RBC Distribution Width CV 14.4 % (11.6-14.6); RBC Distribution Width SD 49.9 fl (35.1-43.9); Red Blood Count 3.99 M/mm3 (4.2-5.4); White Blood Count 6.6 K/mm3 (4.4-11.0)
[2022-12-06 17:37] LABS: Anion Gap 4 (5-15); BUN 19 mg/dL (7-18); BUN/Creat Ratio 23.7 RATIO (10-20); Calcium,Total 8.7 mg/dL (8.5-10.1); Chloride 106 mmol/L (98-107); EST Glomerular Filtration Rate 73 mL/min (>60); Est Glom Filt Rate - Afr Amer 89 mL/min (>60); Glucose 99 mg/dL (74-106); Potassium 4.5 mmol/L (3.5-5.1); Sodium Level 137 mmol/L (136-145)
== END | disposition home or self-care (01) ==
PROVIDERS: PCP Family Medicine; Visit Provider Internal Medicine Cardiovascular Disease
DX: Z95.2 Presence of prosthetic heart valve (principal)
CPT/HCPCS: 36415; 80048; 85025

== ENCOUNTER 2022-12-16 06:55 | Day surgery (SDC) | payer MEDICARE, SELFPAY ==
[2022-12-13 08:30] VITALS: BMI 25.8
--- NOTE | 2022-12-16 08:29 | CL.D_ITS ---
Patient Name: Chencho DALE Study Date: 12/16/2022 Performing: Myron Serra MD Ht: 59 inches 149.86 cm : 1945 Wt: 128 lbs 58.06 kg Age: 77 Gender: female BSA: 1.53 PROCEDURE(S) PERFORMED DC02-(58072)C/COR CLINICAL PROFILE AND INDICATIONS Indications: Valvular Disease Heart Failure: None Stress/Imaging Stress/Image Study Performed: No CAD Presentations: Other: aortic valve disease CONCLUSIONS Non obstructive coronary arteries Aortic Valve Stenosis- Patient has severe prosthetic valve stenosis with minimal coronary artery disease RECOMMENDATIONS Consulted tertiary care institution for consideration for aortic valve replacement or valve in valve procedure DESCRIPTION OF PROCEDURE The patient arrived to the procedure lab. The risks and benefits of the procedure as well as a full description of our services here and current unavailability of surgical backup were fully explained to the patient and/or their significant other prior to the catheterization. The Timeout was completed, verifying the correct patient and procedure. The patient's procedural site was prepped and draped in the usual fashion. Local anesthetic was given subcutaneously to right radial region with Lidocaine 2%. Using a modified Seldinger technique, arterial access was obtained via the right radial artery, a 6Fr sheath was inserted. Left Coronary Artery selective angiography was performed in multiple views using a 5 Fr. 4.0 Pesotum catheter. Right Coronary Artery selective angiography was then performed in multiple views using a 5 Fr. JR 4 catheter.The arterial sheath was pulled and a TR Band was applied for hemostasis CORONARY ANGIOGRAPHY DOMINANCE: Co- Dominant LEFT HEART ASSESSMENT Left Ventricular Ejection Fraction: by Echo 65 % Normal LV wall motion Normal Left Ventricular systolic function LEFT MAIN: Angiographically normal LEFT ANTERIOR DESCENDING ARTERY: Moderate luminal irregularities up to 50% CIRCUMFLEX ARTERY: Mild luminal irregularities less than 30% RIGHT CORONARY ARTERY: Mild luminal irregularities less than 30% VALVE FINDINGS: Aortic Valve Stenosis - severe COMPLICATIONS No Complications PROCEDURE MEDICATIONS Versed 1 mg IV Fentanyl 50 mcg IV Oxygen: 2 L/min via nasal cannula SUMMARY OF HEMODYNAMIC DATA Time AIR REST ECG 07:20:35 AO 162/69 (106) SA 08:13:22 Signed By Myron Serra MD On 12/16/2022 08:29:13 Myron Serra MD
== END 2022-12-16 11:30 | disposition home or self-care (01) ==
PROVIDERS: PCP Family Medicine; Referring Provider Internal Medicine Cardiovascular Disease; Visit Provider Internal Medicine Cardiovascular Disease
DX: T85.858A Stenosis due to other internal prosthetic devices, implants and grafts, initial encounter (principal); I35.0 Nonrheumatic aortic (valve) stenosis; I25.10 Atherosclerotic heart disease of native coronary artery without angina pectoris; D64.9 Anemia, unspecified; J45.909 Unspecified asthma, uncomplicated; I10 Essential (primary) hypertension; G47.00 Insomnia, unspecified; E78.2 Mixed hyperlipidemia; M85.80 Other specified disorders of bone density and structure, unspecified site; G89.29 Other chronic pain; M54.9 Dorsalgia, unspecified
CPT/HCPCS: 93454; 99152; 99153; J7040; C1769; C1894; Q9967

== ENCOUNTER 2023-03-13 17:11 | Inpatient (IN) | payer MEDICARE, SELFPAY ==
[2023-03-13 19:03] VITALS: BMI 24.4
[2023-03-13 19:05] VITALS: BP 130/72; PULSE 70; RESP 18; TEMP 36.1; O2SAT 93
--- NOTE | 2023-03-13 20:03 | HP.PCM_ITS ---
HPI - General General Date of Admission: 03/13/23 Date of Service: 03/13/23 Chief Complaint: Here for rehabilitation. HPI Narrative Chencho DALE, is a 77 Female who presents with severe bioprosthetic aortic valve stenosis. Patient originally underwent aortic valve replacement in 2017 at [facility]. 02/28/2023 Admit to [facility]. 02/28/2023 Redo AVR, ascending aorta with richmond arch repair and TVR. #1 chest tube removed 03/01/2023. #2 chest tube removed 03/05/2023. #3 chest tube removed 03/12/2023. 03/01/2023 Extubated. 03/02/2023 Reintubated. Hypoxic respiratory failure. Leukocytosis from 8.68 (03/01/2023) to 16.61 (03/02/2023). Started on Zosyn 3.375GM IV Q6H. Per ID treat patient for likely aspiration pneumonia as seen on her Chest X- ray. 03/05/2023 Extubated. 03/09/2023 7 days of Zosyn completed for aspiration pneumonia. Urinalysis consistent with urinary tract infection. 03/10/2023 Urine culture sent. Start Bactrim twice daily until urine culture results available. Bactrim changed to Fluconazole for 14 days for fungal urinary tract infection. Patient developed atrial fibrillation during her admission requiring amiodarone and beta blockers to be started. Patient converted back to sinus rhythm and no anticoagulation needed to be prescribed. 03/13/2023 Admit to TCU with debility, here for rehabilitation, strengthening, prior to discharge home alone. [facility] Medical History Abnormal ECG Acute bronchiolitis Anemia Anemia, normocytic normochromic Arthritis Asthma Chronic back pain Chronic blood loss anemia Dysarthria Essential hypertension, benign Fatigue Heart murmur Insomnia Mixed hyperlipidemia Multilevel degenerative disc disease Osteopenia Prosthetic aortic valve stenosis Shortness of breath on exertion Home Medications calcium carbonate 600 mg-vitamin D3 20 mcg (800 unit) tablet 1 tab PO TID SUPPLEMENT 09/04/15 [History Last Taken Unknown] gabapentin 400 mg capsule 400 mg PO TIDCM PAIN 09/04/15 [History Last Taken 10/21/18 04:30] multivitamin with folic acid 400 mcg tablet (Thera) 1 tab PO DAILY SUPPLEMENT 09/04/15 [History Last Taken Unknown] albuterol sulfate 90 mcg/actuation aerosol inhaler (ProAir HFA) 2 puff inhalation Q6H PRN PRN Asthma 08/17/18 [History Last Taken 09/01/18 04:00] cyclobenzaprine 5 mg tablet 5 mg PO BID PRN BACK SPASMS 08/17/18 [History Last Taken Unknown] ferrous sulfate 325 mg (65 mg iron) tablet 325 mg PO DAILY@0800 SUPPLEMENT 08/17/18 [History Last Taken Unknown] loratadine 10 mg tablet (Allergy Relief (loratadine)) 10 mg PO DAILY ALLERGIES 08/17/18 [History Last Taken 10/21/18 04:30] montelukast 10 mg tablet (Singulair) 10 mg PO DAILY ALLERGIES 08/17/18 [History Last Taken Unknown] pantoprazole 40 mg tablet,delayed release 40 mg PO DAILY STOMACH ACID 08/17/18 [History Last Taken 09/01/18 04:00] trazodone 50 mg tablet 50 mg PO QHS SLEEP 08/17/18 [History Last Taken Unknown] furosemide 40 mg tablet 40 mg PO BID Fluid Retention 10/07/22 [History Last Taken Unknown] acetaminophen 325 mg capsule (Tylenol) 1,000 mg PO ONCE PRN Pain 10/23/22 [History Last Taken Unknown] ascorbic acid (vitamin C) 1,000 mg tablet (Vitamin C) 3,000 mg PO DAILY SUPPLEMENT 10/23/22 [History Last Taken Unknown] carvedilol 12.5 mg tablet 12.5 mg PO BID BLOOD PRESSURE 10/23/22 [History Last Taken 12/16/22] fluticasone furoate 200 mcg-vilanterol 25 mcg/dose inhalation powder (Breo Ellipta) 1 inh inhalation Q OTHER DAY Asthma 10/23/22 [History Last Taken Unknown] tramadol 50 mg tablet 50 mg PO DAILY pain 10/23/22 [History Last Taken 12/16/22] vitamin E (dl, acetate) 180 mg (400 unit) capsule 180 mg PO TID SUPPLEMENT 10/23/22 [History Last Taken Unknown] aspirin 81 mg chewable tablet 81 mg PO DAILY Heart 12/06/22 [History Last Taken 12/16/22] rosuvastatin 40 mg tablet 40 mg PO DAILY Cholesterol 01/29/23 [History Last Taken Unknown] aluminum-magnesium hydroxide 200 mg-200 mg/5 mL oral suspension 5 ml PO Q4H PRN Gas 03/13/23 [History Last Taken Unknown] amiodarone 400 mg tablet 400 mg PO DAILY Heart 03/13/23 [History Last Taken Unknown] fluconazole 200 mg tablet (Diflucan) 200 mg PO DAILY UTI 03/13/23 [History Last Taken Unknown] guaifenesin 600 mg tablet, extended release 12 hr (Mucinex) 600 mg PO Q12H PRN Cough 03/13/23 [History Last Taken Unknown] heparin (bovine) 5,000 unit/mL injection solution 5,000 unit Q12H Anticoagulants 03/13/23 [History Last Taken Unknown] magnesium hydroxide 400 mg/5 mL oral suspension 30 ml PO DAILY PRN Constipation 03/13/23 [History Last Taken Unknown] meloxicam 7.5 mg tablet 7.5 mg PO BID Check with primary doctor 03/13/23 [History Last Taken Unknown] metoprolol succinate 50 mg tablet,extended release 24 hr 50 mg PO BID BP 03/13/23 [History Last Taken Unknown] multivitamin 1 tab PO DAILY Supplement 03/13/23 [History Last Taken Unknown] polyethylene glycol 3350 17 gram oral powder packet (Miralax) 17 g PO DAILY Constipation 03/13/23 [History Last Taken Unknown] senna-docusate sodium tablet 1 tab PO BID Constipation 03/13/23 [History Last Taken Unknown] Allergy/AdvReac Type Severity Reaction Status Date / Time No Known Allergies Allergy Verified 02/04/23 14:02 Family History Father Heart disease Brother Heart disease Mother Dementia Surgical History Cataract extraction status of eye (~2015) H/O foot surgery History of aortic valve replacement (~06/30/17) History of appendectomy History of bunionectomy History of tonsillectomy and adenoidectomy Total knee replacement status (~10/21/18) Social History (Updated 03/13/23 @ 20:[address] Gautam Chatterjee MD) household members: none Smoking Status: Never smoker alcohol intake: never substance use type: does not use caffeine: Yes (2-3/wk) Type: coffee ROS Constitutional Constitutional: Denies chills, fever(s) or weight gain ENT HEENT: Denies headache(s), nasal congestion or nasal discharge Cardiovascular Cardiovascular: Denies chest pain or palpitations Respiratory/Chest Respiratory/Chest: Denies cough, excessive phlegm production or shortness of breath with exertion Gastrointestinal Gastrointestinal: Denies abdominal pain, nausea or vomiting Genitourinary Genitourinary: Denies dysuria Musculoskeletal Musculoskeletal: Denies joint pain or joint swelling Integumentary Integumentary: Denies rash or wounds Neurologic Neurologic: Denies focal weakness, numbness or tingling Psychiatric Psychiatric: Denies anxiety, auditory hallucinations, depression, homicidal ideation or suicidal ideation Vital Signs Vital Signs Vital Signs: 03/13/23 19:05 Temperature 97.0 F L Temperature Source Temporal Pulse Rate 70 Respiratory Rate 18 Blood Pressure 130/72 H Blood Pressure Mean 91 Blood Pressure Source Monitor Blood Pressure Position Sitting Blood Pressure Location Right Arm Pulse Ox 93 Oxygen Delivery Method Room Air Weight Weight: 54.885 kg Body Mass Index (BMI) 24.4 Physical Exam Const alert General Appearance: cooperative HEENT normocephalic Eyes PERRL and EOMs intact bilaterally Neck supple, no JVD and no carotid bruits Chest Chest Narrative: Incision macarena clean, dry, intact. Resp normal respiratory effort, normal air movement and clear to auscultation bilaterally Cardio regular rate and regular rhythm GI normal to inspection, nondistended, normoactive bowel sounds, non-tender and non-distended Extremity normal capillary refill General Extremity: Negative for edema Skin no rashes or lesions noted General Skin Exam: no breakdown Psych affect normal Appearance: appropriate Assessment & Plan Assessment/Plan (1) Debility: (2) Prosthetic aortic valve stenosis: (3) Acute respiratory failure with hypoxia: (4) Aspiration pneumonia: (5) Urinary tract infection: (6) Atrial fibrillation with rapid ventricular response: (7) Neuropathic pain: (8) Asthma: (9) Muscle spasm: (10) Iron deficiency anemia: (11) Allergic rhinitis: (12) GERD (gastroesophageal reflux disease): (13) Insomnia: (14) Osteoarthritis: (15) Essential (primary) hypertension: PLAN: Plan 77 year old female with severe bioprosthetic aortic stenosis, admitted to [facility], underwent Redo AVR, Ascending aorta with richmond arch repair and TVR, complicated by aspiration pneumonia, fungal urinary tract infection, atrial fibrillation with rapid ventricular response, admitted to TCU with debility, here for rehabilitation, strengthening, prior to discharge home alone. * Debility - PT/OT. * Pain - Tylenol 1000mg q6h prn pain (1-10), Tramadol 50mg daily. * Bowel - Miralax 17gm daily, senna/colace 1 tablet bid, MOM 30ml po daily prn. * Adult immunization - Administer pneumonia vaccine, covid19 vaccine, flu vaccine as appropriate. * DVT prophylaxis - Xarelto 10mg daily x 30 days. * Asthma - Budesonide 0.5mg neb Q12H, Albuterol 2.5mg neb q6hwa, 2.5mg neb q6h prn. * Atrial fibrillation - Metoprolol succinate 50mg bid, Amiodarone 400mg daily thru 03/18/2023, then 200mg daily. * Iron deficiency anemia - Ferrous sulfate 325mg daily, Vitamin C 500mg daily. * Muscle spasm - Flexeril 5mg bid prn. * Fungal urinary tract infection - Fluconazole 200mg daily thru 03/26/2023. * Neuropathic pain - Gabapentin 400mg tidcm. * Congestion - Mucinex 600mg q12h prn. * Allergic rhinitis - Loratadine 10mg daily, Singulair 10mg daily. * Indigestion - Mylanta II 30ml q6h prn. * Nutrition - MVI daily. * GERD - Pantoprazole 40mg daily. * Hyperlipidemia - Rosuvastatin 40mg qhs.
[2023-03-13 20:12] VITALS: PULSE 66; RESP 24
[2023-03-13] MEDS: Budesonide Respules 0.5 MG/2 ML AMPUL.NEB. INHALATION (20:12)
[2023-03-13] MEDS: Albuterol 2.5 MG/3 ML VIAL.NEB. INHALATION (20:12)
[2023-03-13] MEDS: Gabapentin 400 MG Capsule PO (20:49)
[2023-03-13] MEDS: Acetaminophen 500 MG Tablet 1000 MG PO (20:51)
[2023-03-13 20:55] VITALS: BP 118/56; PULSE 69
[2023-03-13] MEDS: Senna/Docusate Sodium 1 Tablet PO (20:55)
[2023-03-13] MEDS: Metoprolol(XL)Succ 50 MG Tablet PO (20:55)
[2023-03-13] MEDS: Montelukast 10 MG Tablet PO (20:56)
[2023-03-13] MEDS: ROSUVASTATIN CALCIUM 40 MG TABLET PO (20:57)
[2023-03-13] MEDS: traZODone 50 MG Tablet PO (20:58)
[2023-03-13 21:00] VITALS: PULSE 68; RESP 14
[2023-03-14 05:40] LABS: Absolute Neutrophil Count 6.4 X10^3/uL (2.0-7.7); Basophil# 0.09 X10^3/uL; Eosinophils% 3.2 % (0-5); Hematocrit 30.3 % (37-47); Hemoglobin 9.1 g/dL (12.0-15.0); Lymphocyte % 13.8 % (19-41); Mean Corpuscular Hgb 29.5 pg (27.0-32.0); Mean Corpuscular Volume 98.4 fL (81-99); Mean Platelet Vol. 10.4 fl (6.2-12.0); Monocyte# 1.24 X10^3/uL; Monocyte% 13.2 % (0-10); NRBC Flagged by Analyzer 0 % (0-5); Neutrophil # 6.43 X10^3/uL (2.7-7.7); Neutrophil % 68.2 % (47-70); Platelet Count 446 K/mm3 (150-450); RBC Distribution Width CV 15.4 % (11.6-14.6); RBC Distribution Width SD 54.7 fl (35.1-43.9); Red Blood Count 3.08 M/mm3 (4.2-5.4); White Blood Count 9.4 K/mm3 (4.4-11.0)
[2023-03-14 06:00] LABS: Anion Gap 3 (5-15); BUN 10 mg/dL (7-18); BUN/Creat Ratio 13.3 RATIO (10-20); Calcium,Total 8.6 mg/dL (8.5-10.1); Chloride 109 mmol/L (98-107); Creatinine, Serum 0.75 mg/dL (0.55-1.02); EST Glomerular Filtration Rate 79 mL/min (>60); Est Glom Filt Rate - Afr Amer 95 mL/min (>60); Estimated Creatinine Clearance 39.52 ml/min; Glucose 89 mg/dL (74-106); Potassium 4.8 mmol/L (3.5-5.1); Sodium Level 134 mmol/L (136-145)
[2023-03-14 06:13] VITALS: PULSE 85; RESP 20; O2SAT 95
[2023-03-14] MEDS: Albuterol 2.5 MG/3 ML VIAL.NEB. INHALATION (06:13)
[2023-03-14] MEDS: traMADol 50 MG Tablet PO (06:29)
[2023-03-14] MEDS: Loratadine 10 MG Tablet PO (06:31)
[2023-03-14] MEDS: Pantoprazole Sodium 40 MG Tablet PO (06:31)
[2023-03-14] MEDS: Amiodarone 200 MG Tablet 400 MG PO (06:31)
[2023-03-14 06:33] VITALS: BP 123/61; PULSE 68
[2023-03-14] MEDS: Metoprolol(XL)Succ 50 MG Tablet PO ×2 (06:33→18:23)
[2023-03-14] MEDS: Fluconazole 100 MG Tablet 200 MG PO (06:52)
[2023-03-14] MEDS: Gabapentin 400 MG Capsule PO ×3 (08:58→18:27)
[2023-03-14] MEDS: Ascorbic Acid 500 MG Tablet PO (08:58)
[2023-03-14] MEDS: Multivitamins,Therapeutic Tablet 1 TABLET PO (08:58)
--- NOTE | 2023-03-14 11:12 | NURSING ---
Ergonomic Specialist Note; Activity Asset: Jose Spears is independent in her choice of daily activities. She welcomes the valve and regulator repairer and therapy dog along with family and friends visiting her. She watches tv, reads and enjoys word search puzzles. She is not interested in group activities at this time, will continue to do social visit and encourage small group activities for social well-being.
[2023-03-14] MEDS: Iron Polysaccharide Complex 150 MG CAPSULE PO (12:25)
[2023-03-14] MEDS: Tuberculin,Purif.prot.deriv. 50 TU/ML Vial 0.1 ML ID (12:26)
--- NOTE | 2023-03-14 13:23 | PHA.CONS_ITS ---
TCU RX Drug Regimen Review Subjective: 77 YOF admitted to TCU 03/13/23 from [facility] in which she was admitted for a re-do of an aortic valve replacement. Her stay at [facility] was subsequently complicated by respiratory failure secondary to aspiration pneumonia, fungal UTI, and development of afib with RVR. Admitted to TCU for strengthening and rehabilitation prior to discharge home where she currently resides alone. Objective: Allergies No Known Allergies Allergy (Verified 02/04/23 14:02) Current Medications Generic Name Dose Route Start Last Admin Trade Name Freq PRN Reason Stop Dose Admin Acetaminophen 1,000 mg 03/13/23 18:21 03/13/23 20:51 Acetaminophen 500 Mg Tablet PO 1,000 mg Q6H PRN PRN Administration Pain Score 1-10 Al Hydroxide/Mg Hydroxide 30 ml 03/13/23 18:22 Mag Hydrox/Al Hydrox/Simeth 30 Ml Udc PO Q4H PRN PRN Gas Albuterol Sulfate 2.5 mg 03/13/23 18:23 Albuterol 2.5 Mg/3 Ml Vial.Neb. INHALATION Q6H PRN PRN Asthma Albuterol Sulfate 2.5 mg 03/14/23 06:00 03/14/23 06:13 Albuterol 2.5 Mg/3 Ml Vial.Neb. INHALATION 2.5 mg Q6HWA.RT DWIGHT Administration Amiodarone HCl 400 mg 03/14/23 06:00 03/14/23 06:31 Amiodarone 200 Mg Tablet PO 03/18/23 06:01 400 mg DAILY DWIGHT Administration Amiodarone HCl 200 mg 03/19/23 06:00 Amiodarone 200 Mg Tablet PO DAILY DWIGHT Ascorbic Acid 500 mg 03/14/23 08:00 03/14/23 08:58 Ascorbic Acid 500 Mg Tablet PO 500 mg BREAKFAST DWIGHT Administration Budesonide 0.5 mg 03/14/23 06:00 03/13/23 20:12 Budesonide Respules 0.5 Mg/2 Ml Ampul.Neb. INHALATION 0.5 mg Q12H.RT DWIGHT Administration Cyclobenzaprine HCl 5 mg 03/13/23 18:06 Cyclobenzaprine Hcl 5 Mg Tablet PO BID PRN PRN BACK SPASMS Fluconazole 200 mg 03/14/23 06:00 03/14/23 06:52 Fluconazole 100 Mg Tablet PO 03/26/23 06:01 200 mg DAILY [facility] Administration Gabapentin 400 mg 03/13/23 18:12 03/14/23 12:25 Gabapentin 400 Mg Capsule PO 400 mg TIDCM [facility] Administration Guaifenesin 600 mg 03/13/23 18:06 Guaifenesin 600 Mg Tablet PO Q12H PRN PRN COUGH Loratadine 10 mg 03/14/23 06:00 03/14/23 06:31 Loratadine 10 Mg Tablet PO 10 mg DAILY [facility] Administration Magnesium Hydroxide 30 ml 03/13/23 18:06 Magnesium Hydroxide 30 Ml Udc PO DAILY PRN PRN Constipation Metoprolol Succinate 50 mg 03/13/23 19:00 03/14/23 06:33 Metoprolol(Xl)Succ 50 Mg Tablet PO 50 mg BID [facility] Administration Montelukast Sodium 10 mg 03/13/23 22:00 03/13/23 20:56 Montelukast 10 Mg Tablet PO 10 mg QHS [facility] Administration Multivitamins 1 tablet 03/14/23 08:00 03/14/23 08:58 Multivitamins,Therapeutic Tablet PO 1 tablet BREAKFAST [facility] Administration Pantoprazole Sodium 40 mg 03/14/23 06:00 03/14/23 06:31 Pantoprazole Sodium 40 Mg Tablet PO 40 mg DAILY [facility] Administration Polyethylene Glycol 17 gm 03/14/23 06:00 03/14/23 06:29 Polyethylene Glycol 3350 17 Gm Packet PO Not Given DAILY [facility] Polysaccharide Iron Complex 150 mg 03/14/23 12:00 03/14/23 12:25 Iron Polysaccharide Complex 150 Mg Capsule PO 150 mg BREAKFAST [facility] Administration Promethazine HCl 25 mg 03/14/23 07:53 Promethazine 25 Mg Tablet PO Q4H PRN PRN NAUSEA/VOMITING Rivaroxaban 10 mg 03/14/23 17:00 Rivaroxaban 10 Mg Tablet PO 04/13/23 17:01 DINNER [facility] Rosuvastatin Calcium 40 mg 03/13/23 22:00 03/13/23 20:57 Rosuvastatin Calcium 40 Mg Tablet PO 40 mg QHS [facility] Administration Senna/Docusate Sodium 1 tablet 03/13/23 19:00 03/14/23 06:29 Senna/Docusate Sodium 1 Tablet PO Not Given BID [facility] Tramadol HCl 50 mg 03/14/23 06:00 03/14/23 06:29 Tramadol 50 Mg Tablet PO 50 mg DAILY [facility] Administration Trazodone HCl 50 mg 03/13/23 22:00 03/13/23 20:58 Trazodone 50 Mg Tablet PO 50 mg QHS [facility] Administration Tuberculin PPD 0.1 ml 03/21/23 10:00 Tuberculin,Purif.Prot.Deriv. 50 Tu/Ml Vial ID 03/21/23 10:01 X1 ONE Problem List (Last Reviewed 03/13/23 @ 20:[address] Gautam Chatterjee MD) Essential (primary) hypertension (Acute) Osteoarthritis (Acute) Insomnia (Acute) GERD (gastroesophageal reflux disease) (Acute) Allergic rhinitis (Acute) Iron deficiency anemia (Acute) Muscle spasm (Acute) Asthma (Acute) Neuropathic pain (Acute) Atrial fibrillation with rapid ventricular response (Acute) Urinary tract infection (Acute) Aspiration pneumonia (Acute) Acute respiratory failure with hypoxia (Acute) Prosthetic aortic valve stenosis (Acute) Debility (Acute) Vital Signs Temp Pulse Resp BP Pulse Ox O2 Del Method 97.0 F L 68 20 H 123/61 H 95 Room Air 03/13/23 19:05 03/14/23 06:33 03/14/23 06:13 03/14/23 06:33 03/14/23 06:13 03/14/23 06:13 Oxygen Delivery Method Room Air Weight: 54.885 kg Body Mass Index (BMI) 24.4 Sodium 134 mmol/L (136-145) L 03/14/23 05:35 Potassium 4.8 mmol/L (3.5-5.1) 03/14/23 05:35 Chloride 109 mmol/L (98-107) H 03/14/23 05:35 Carbon Dioxide 22.0 mmol/L (21.0-32.0) 03/14/23 05:35 Anion Gap 3 (5-15) L 03/14/23 05:35 BUN 10 mg/dL (7-18) 03/14/23 05:35 Creatinine 0.75 mg/dL (0.55-1.02) 03/14/23 05:35 Est GFR (MDRD) Af Amer 95 mL/min (>60) 03/14/23 05:35 Est GFR (MDRD) Non-Af 79 mL/min (>60) 03/14/23 05:35 BUN/Creatinine Ratio 13.3 RATIO (10-20) 03/14/23 05:35 Glucose 89 mg/dL (74-106) 03/14/23 05:35 Assessment/Plan: 1. Pain: Tramadol 50mg PO Daily, Tylenol 1000mg PO Q6h PRN Pain 1-10. Please continue to monitor renal function, increased/decreased S/S pain, PRN medication usage. - The patient had 1 dose of PRN Tylenol since admission. Pre-medication pain rated 7/10, post medication pain rated 0/10. Appears pain is well controlled at this time. 2. HTN/ Afib/ HLD: Amiodarone 400mg PO Daily thru 03/18 then 200mg PO Daily thereafter, Toprol XL 50mg PO BID, Crestor 40mg PO QHS. Please continue to monitor BP (range 118-130/56-72), lipid panel annually (none on file), pulse (range 66-70), annual eye exams while on amiodarone. 3. Fungal Urinary tract infection: Fluconazole 200mg PO Daily thru 03/26/23. Please continue to monitor culture results (from outside facility) to make sure antifungal medication is adequate, resolution of urinary symptoms/infection. 4. Asthma: Albuterol nebulization Q6hWA and q6h PRN, budesonide nebulization BID. Please continue to monitor for S/S asthma exacerbation, heart rate. 5. Allergic rhinitis/congestion/cough: Mucinex 600mg PO Q12h PRN, Claritin 10mg PO Daily, Singulair 10mg PO QHS. Please continue to monitor for improvement in allergy symptoms, PRn med use. 6. GERD/Gas: Protonix 40mg PO Daily, Maalox 30mL PO Q4h PRN. Please continue to monitor for GERD exacerbations, abdominal discomfort, headache. Please also encourage non-pharmacologic treatments to help minimize GERD flare-ups. 7. DVT Prophylaxis: Xarelto 10mg PO daily thru 04/13/23. Please continue to monitor H/H (Hgb 9.1, Hct 30.3 on 03/14), S/S bleeding/bruising, S/S blood clot development. 8. Muscle Spasm: Flexeril 5mg PO BID PRN. Please continue to monitor for PRN use. This patient is a Beer's Criteria medication and can increase the risk of anticholinergic effects. Please continue to monitor patient closely and evaluate risk v. benefit of use if problems arise. 9. Neuropathic Pain: Gabapentin 400mg PO TID. Please continue to monitor renal function (dose appropriate based on CrCl), oversedation. This is Beer's Criteria medication which can increase the risk of falls in patients >65 years of age. Please continue to monitor patient closely and evaluate risk v. benefit if problems arise. 10. Nausea: Promethazine 25mg PO Q4h PRN. Please continue to monitor PRN use, medication effectiveness. 11. General Wellness: Vitamin C 500mg PO Daily, Ferrex 150mg PO Daily, MVI 1 tab PO Daily. 12. Bowel: Miralax 17g PO Daily, Senna-S 1 tab PO BID, MOM 30mL PO Daily PRN. Please continue to monitor for increased/decreased constipation and/or diarrhea. -The patient has not had a documented BM since admission (<24hrs since admit). Please continue to monitor for BM. Assessment/Plan for indications treated with psychotropic medications: 13. Insomnia: Trazodone 50mg PO QHS. Please consider a GDR by 09/15 if clinically indicated, thank you Medical chart and medication regimen reviewed. The following medication irregularities or issues were identified: 1. Please consider obtaining a lipid panel, if clinically indicated, on this patient- there is not on on file and patient currently on Crestor, thank you. 2. Insomnia: Trazodone 50mg PO QHS. Please consider a GDR by 09/15 if clinically indicated, thank you Date of Note:: 03/14/23
--- NOTE | 2023-03-14 15:14 | CASEMGMT ---
Social Work Met with patient to complete initial assessment. Introduced self and role. Verified contacts. Discussed code status and MOLST. Pt confirmed full code. MOLST placed in Dr folder. Dtr to provide copy of living will. Educated to [facility] insurance with [employer] 03/17 and continued stay is not guaranteed with each review. Pt's goal is to return home to [facility] alone. Pt just moved to [facility] about 2 weeks prior to surgery. SW to continue to follow for DC planning. Bryanna London, PUBLIC RELATIONS ASSISTANT TREASURER
[2023-03-14 15:56] VITALS: BP 101/48; PULSE 63; RESP 16; TEMP 36.8; O2SAT 94
[2023-03-14 18:23] VITALS: PULSE 63
[2023-03-14] MEDS: Rivaroxaban 10 MG Tablet PO (18:24)
[2023-03-14] MEDS: Senna/Docusate Sodium 1 Tablet PO (18:24)
[2023-03-14 20:40] VITALS: BP 106/51; PULSE 63
[2023-03-14] MEDS: Montelukast 10 MG Tablet PO (20:47)
[2023-03-14] MEDS: ROSUVASTATIN CALCIUM 40 MG TABLET PO (20:47)
[2023-03-14] MEDS: traZODone 50 MG Tablet PO (20:47)
[2023-03-14 21:05] VITALS: PULSE 65; RESP 14; O2SAT 94
[2023-03-14] MEDS: Acetaminophen 500 MG Tablet 1000 MG PO (22:26)
--- NOTE | 2023-03-14 23:11 | NURSING ---
9 macarena removed @ this time w/ 15 remaining. Pt tolerated well.
--- NOTE | 2023-03-15 02:34 | NURSING ---
4 more macarena removed @ this time. 11 macarena remaining. Pt tolerated well. Incision well approximated, clean, dry, w/o redness and edema.
[2023-03-15] MEDS: Fluconazole 100 MG Tablet 200 MG PO (05:08)
[2023-03-15] MEDS: traMADol 50 MG Tablet PO (05:08)
[2023-03-15] MEDS: Loratadine 10 MG Tablet PO (05:08)
[2023-03-15] MEDS: Pantoprazole Sodium 40 MG Tablet PO (05:08)
[2023-03-15] MEDS: Amiodarone 200 MG Tablet 400 MG PO (05:09)
[2023-03-15 05:10] VITALS: BP 129/51; PULSE 58
[2023-03-15] MEDS: Metoprolol(XL)Succ 50 MG Tablet PO ×2 (05:10→18:23)
[2023-03-15] MEDS: Budesonide Respules 0.5 MG/2 ML AMPUL.NEB. INHALATION ×2 (07:26→19:30)
[2023-03-15] MEDS: Albuterol 2.5 MG/3 ML VIAL.NEB. INHALATION ×3 (07:27→19:30)
[2023-03-15 07:28] VITALS: PULSE 81; RESP 19
[2023-03-15] MEDS: Iron Polysaccharide Complex 150 MG CAPSULE PO (07:50)
[2023-03-15] MEDS: Multivitamins,Therapeutic Tablet 1 TABLET PO (07:50)
[2023-03-15] MEDS: Gabapentin 400 MG Capsule PO ×3 (07:50→18:14)
[2023-03-15] MEDS: Ascorbic Acid 500 MG Tablet PO (07:51)
[2023-03-15] MEDS: Acetaminophen 500 MG Tablet 1000 MG PO (12:24)
[2023-03-15 13:50] VITALS: PULSE 78; RESP 18
[2023-03-15 13:57] VITALS: BP 92/35; PULSE 60; RESP 16; TEMP 36.6; O2SAT 92
[2023-03-15] MEDS: Rivaroxaban 10 MG Tablet PO (18:14)
[2023-03-15 18:23] VITALS: BP 121/44; PULSE 66
[2023-03-15 19:30] VITALS: PULSE 68; RESP 18; O2SAT 98
[2023-03-15] MEDS: ROSUVASTATIN CALCIUM 40 MG TABLET PO (21:00)
[2023-03-15] MEDS: Montelukast 10 MG Tablet PO (21:00)
[2023-03-15] MEDS: traZODone 50 MG Tablet PO (21:00)
[2023-03-16] VITALS (9 sets, daily range): BP systolic 113–126; BP diastolic 47–66; PULSE 60–77; RESP 16–22; TEMP 36.9; O2SAT 92–97; BMI 25.1
[2023-03-16] MEDS: traMADol 50 MG Tablet PO (06:26)
[2023-03-16] MEDS: Metoprolol(XL)Succ 50 MG Tablet PO ×2 (06:27→16:52)
[2023-03-16] MEDS: Amiodarone 200 MG Tablet 400 MG PO (06:27)
[2023-03-16] MEDS: Fluconazole 100 MG Tablet 200 MG PO (06:27)
[2023-03-16] MEDS: Loratadine 10 MG Tablet PO (06:28)
[2023-03-16] MEDS: Pantoprazole Sodium 40 MG Tablet PO (06:28)
[2023-03-16 06:59] LABS: Hematocrit 28.3 % (37-47)
[2023-03-16] MEDS: Budesonide Respules 0.5 MG/2 ML AMPUL.NEB. INHALATION ×2 (07:37→19:02)
[2023-03-16] MEDS: Albuterol 2.5 MG/3 ML VIAL.NEB. INHALATION ×3 (07:37→19:02)
[2023-03-16] MEDS: Iron Polysaccharide Complex 150 MG CAPSULE PO (08:36)
[2023-03-16] MEDS: Ascorbic Acid 500 MG Tablet PO (08:36)
[2023-03-16] MEDS: Gabapentin 400 MG Capsule PO ×3 (08:36→16:54)
[2023-03-16] MEDS: Multivitamins,Therapeutic Tablet 1 TABLET PO (08:36)
--- NOTE | 2023-03-16 12:49 | NURSING ---
Addendum entered by Rebekah Gayle 03/16/23 13:40: Dr amos notified, new order for chest xray Original Note: pt c/o ^ SOB at rest, expiratory wheezes noted t/o lung pozo. diminished in RT posterior base. sat 97% on 2 liters oxygen. resting in recliner chair, call light in reach.
--- NOTE | 2023-03-16 13:32 | RAD_ITS ---
EXAM: XR CHEST, 2 VIEWS CLINICAL INDICATION: increase SOB TECHNIQUE: Frontal and lateral views of the chest. This report was created using FRESS report generation technology. COMPARISON: 09/03/2022. FINDINGS: LUNGS AND PLEURAL SPACES: Right subpulmonic fluid and compressive atelectasis of the right lung base are new findings. No pneumothorax. HEART: Cardiomegaly is unchanged. Metallic stent across the aortic valve is needed. MEDIASTINUM: Central airways and mediastinal contour are unremarkable. BONES/JOINTS: Intact sternal wires. SOFT TISSUES: Surgical clips in the right axilla were not present previously. UPPER ABDOMEN: Decrease air-fluid level distention of the large gastric hernia. RAD/Chest PA and Lateral IMPRESSION: 1. Right subpulmonic fluid and compressive atelectasis of the right lung base, new since 09/03/2022. 2. Interval deployment of metallic stent across the aortic valve. 3. Decrease air-fluid level distention of prominent gastric hernia. Electronically Signed: Pérez Loving MD at 15:47 EDT ,
--- NOTE | 2023-03-16 16:15 | NURSING ---
dr amos notified of cxr results. new order for lasix x7 days, start potassium, & repeat cxr on Friday.
[2023-03-16] MEDS: Furosemide 40 MG Tablet PO (16:52)
[2023-03-16] MEDS: Rivaroxaban 10 MG Tablet PO (16:53)
[2023-03-16] MEDS: ROSUVASTATIN CALCIUM 40 MG TABLET PO (20:02)
[2023-03-16] MEDS: Montelukast 10 MG Tablet PO (20:02)
[2023-03-16] MEDS: traZODone 50 MG Tablet PO (20:02)
[2023-03-17] VITALS (9 sets, daily range): BP systolic 105–122; BP diastolic 40–42; PULSE 55–62; RESP 16–18; TEMP 37.2; O2SAT 94–98; BMI 25.0
[2023-03-17] MEDS: Loratadine 10 MG Tablet PO (06:14)
[2023-03-17] MEDS: Fluconazole 100 MG Tablet 200 MG PO (06:14)
[2023-03-17] MEDS: Pantoprazole Sodium 40 MG Tablet PO (06:14)
[2023-03-17] MEDS: Metoprolol(XL)Succ 50 MG Tablet PO ×2 (06:15→17:01)
[2023-03-17] MEDS: Furosemide 40 MG Tablet PO (06:16)
[2023-03-17] MEDS: Amiodarone 200 MG Tablet 400 MG PO (06:16)
[2023-03-17] MEDS: traMADol 50 MG Tablet PO (06:20)
[2023-03-17] MEDS: Albuterol 2.5 MG/3 ML VIAL.NEB. INHALATION ×2 (07:20→19:40)
[2023-03-17] MEDS: Budesonide Respules 0.5 MG/2 ML AMPUL.NEB. INHALATION ×2 (07:20→19:40)
[2023-03-17] MEDS: Iron Polysaccharide Complex 150 MG CAPSULE PO (08:43)
[2023-03-17] MEDS: Ascorbic Acid 500 MG Tablet PO (08:43)
[2023-03-17] MEDS: Potassium Chloride Oral Tablet 20 MEQ PO (08:43)
[2023-03-17] MEDS: Gabapentin 400 MG Capsule PO ×3 (08:43→17:02)
[2023-03-17] MEDS: Multivitamins,Therapeutic Tablet 1 TABLET PO (08:43)
--- NOTE | 2023-03-17 13:08 | NS ---
Provided written copy of first choice/daily specials menu w/ instructions on how to order. Food dislikes: not picky
[2023-03-17] MEDS: Acetaminophen 500 MG Tablet 1000 MG PO (14:15)
[2023-03-17] MEDS: Rivaroxaban 10 MG Tablet PO (17:01)
[2023-03-17] MEDS: Montelukast 10 MG Tablet PO (20:04)
[2023-03-17] MEDS: ROSUVASTATIN CALCIUM 40 MG TABLET PO (20:04)
[2023-03-17] MEDS: traZODone 50 MG Tablet PO (20:04)
[2023-03-18] VITALS (8 sets, daily range): BP systolic 118–138; BP diastolic 34–56; PULSE 55–89; RESP 18–24; TEMP 36.4; O2SAT 96–98; BMI 24.7
[2023-03-18 05:49] LABS: Hematocrit 30.2 % (37-47); Hemoglobin 9.1 g/dL (12.0-15.0)
[2023-03-18] MEDS: Fluconazole 100 MG Tablet 200 MG PO (06:03)
[2023-03-18] MEDS: traMADol 50 MG Tablet PO (06:03)
[2023-03-18] MEDS: Furosemide 40 MG Tablet PO (06:04)
[2023-03-18] MEDS: Amiodarone 200 MG Tablet 400 MG PO (06:04)
[2023-03-18] MEDS: Loratadine 10 MG Tablet PO (06:04)
[2023-03-18] MEDS: Pantoprazole Sodium 40 MG Tablet PO (06:04)
[2023-03-18] MEDS: Metoprolol(XL)Succ 50 MG Tablet PO (06:05)
--- NOTE | 2023-03-18 06:52 | NURSING ---
Patient appears increased weakness/fatigues easily. A&Ox3. No distress observed or reported. Diflucan continues for fungal UTI, no adverse effects observed or reported. Lasix continues for recent abnormal chest xray. O2 continues at 2L via NC. Written communication left for Dr. Chatterjee.
[2023-03-18] MEDS: Budesonide Respules 0.5 MG/2 ML AMPUL.NEB. INHALATION ×2 (08:15→19:00)
[2023-03-18] MEDS: Albuterol 2.5 MG/3 ML VIAL.NEB. INHALATION ×3 (08:15→19:00)
[2023-03-18] MEDS: Gabapentin 400 MG Capsule PO ×3 (08:31→17:27)
[2023-03-18] MEDS: Potassium Chloride Oral Tablet 20 MEQ PO (08:31)
[2023-03-18] MEDS: Ascorbic Acid 500 MG Tablet PO (08:31)
[2023-03-18] MEDS: Multivitamins,Therapeutic Tablet 1 TABLET PO (08:31)
[2023-03-18] MEDS: Iron Polysaccharide Complex 150 MG CAPSULE PO (10:52)
--- NOTE | 2023-03-18 16:08 | RAD_ITS ---
INDICATION: follow up from 03/16 xray EXAMINATION/TECHNIQUE: X-RAY - XR Chest 2 Views COMPARISON: March 16, 2023. FINDINGS: LINES/DEVICES: Sternotomy wires over the mediastinum. LUNGS: Mild effusion with atelectasis in the right lung base. No pneumothorax. MEDIASTINUM AND CARDIOVASCULAR STRUCTURES: Cardiac silhouette is enlarged. Central airways and mediastinal contour are unremarkable. BONES AND SOFT TISSUES: Unremarkable. There is a hiatal hernia. RAD/Chest PA and Lateral IMPRESSION: Mild effusion with atelectasis in the right lung base. Cardiomegaly. Electronically Signed: Ever Casas DO at 16:23 EDT ,
[2023-03-18] MEDS: Rivaroxaban 10 MG Tablet PO (17:27)
[2023-03-18] MEDS: ROSUVASTATIN CALCIUM 40 MG TABLET PO (21:07)
[2023-03-18] MEDS: Montelukast 10 MG Tablet PO (21:07)
[2023-03-18] MEDS: traZODone 50 MG Tablet PO (21:07)
[2023-03-19] VITALS (8 sets, daily range): BP systolic 150–154; BP diastolic 46–66; PULSE 61–92; RESP 16–18; TEMP 36.8; O2SAT 93–99; BMI 24.3
[2023-03-19] MEDS: traMADol 50 MG Tablet PO (05:22)
[2023-03-19] MEDS: Amiodarone 200 MG Tablet PO (05:22)
[2023-03-19] MEDS: Loratadine 10 MG Tablet PO (05:22)
[2023-03-19] MEDS: Pantoprazole Sodium 40 MG Tablet PO (05:22)
[2023-03-19] MEDS: Fluconazole 100 MG Tablet 200 MG PO (05:22)
[2023-03-19] MEDS: Furosemide 40 MG Tablet PO ×2 (05:23→14:31)
[2023-03-19] MEDS: Metoprolol(XL)Succ 50 MG Tablet PO ×2 (05:23→18:02)
[2023-03-19] MEDS: Budesonide Respules 0.5 MG/2 ML AMPUL.NEB. INHALATION ×2 (06:50→19:30)
[2023-03-19] MEDS: Albuterol 2.5 MG/3 ML VIAL.NEB. INHALATION ×3 (06:50→19:30)
[2023-03-19] MEDS: Multivitamins,Therapeutic Tablet 1 TABLET PO (08:00)
[2023-03-19] MEDS: Ascorbic Acid 500 MG Tablet PO (08:00)
[2023-03-19] MEDS: Gabapentin 400 MG Capsule PO ×3 (08:02→18:03)
[2023-03-19] MEDS: Iron Polysaccharide Complex 150 MG CAPSULE PO (08:02)
[2023-03-19] MEDS: Potassium Chloride Oral Tablet 20 MEQ PO (08:02)
--- NOTE | 2023-03-19 14:08 | CASEMGMT ---
Social Work IDT met with patient and dtr for care plan meeting. Discussed patient's progress in PT/OT/SN. [facility] [facility]24 and EDC 03/30. Pt is new O2 this week and endurance is varying. The goal is for pt to return home alone once stronger and off O2. SW to continue to follow for DC planning. Bryanna London, BOOT REPAIRER ADMINISTRATION INTERN
--- NOTE | 2023-03-19 14:57 | CHAPLAIN ---
Type of Pastoral Visit _x__ Initial Visit ___ Follow-up Visit ___ On-call Visit ___ General Patient Visit ___ Spiritual Assessment ___ Family Conference ___ Bereavement ___ Rapid Response ___ Code Blue ___ Other (describe below) Pastoral Care Referral From _x__ Patient ___ Family ___ Nurse ___ Physician ___ Plastic Bubble Packer ___ Contracts Representative ___ Other (describe below) Sacrament/Intervention _x__ Active listening ___ Anointing ___ Amish ___ Bereavement ___ Communion ___ Kena exploration ___ _x__ Life review ___ Prayer ___ Reconciliation ___ Sacrament of Sick _x__ Supportive presence ___ Wedding ___ Other (describe below) Pastoral Comments patient evidently has good support as evidenced by long and cards in room which were topic of discussion; pt states that her new goal is to get weaned off of the O2; pt gives some life review which includes her work as an [employer]; pt is welcoming and eager to share about life and welcomes this chair and couch maker for a return visit; visit ended due to IDT meeting
[2023-03-19] MEDS: Rivaroxaban 10 MG Tablet PO (18:02)
[2023-03-19] MEDS: ROSUVASTATIN CALCIUM 40 MG TABLET PO (21:24)
[2023-03-19] MEDS: traZODone 50 MG Tablet PO (21:24)
[2023-03-19] MEDS: Montelukast 10 MG Tablet PO (21:25)
[2023-03-20] VITALS (8 sets, daily range): BP systolic 118–127; BP diastolic 47–50; PULSE 58–67; RESP 16–20; TEMP 36.3; O2SAT 93–96; BMI 24.2
[2023-03-20] MEDS: Fluconazole 100 MG Tablet 200 MG PO (04:46)
[2023-03-20] MEDS: traMADol 50 MG Tablet PO (04:46)
[2023-03-20] MEDS: Amiodarone 200 MG Tablet PO (04:46)
[2023-03-20] MEDS: Loratadine 10 MG Tablet PO (04:46)
[2023-03-20] MEDS: Pantoprazole Sodium 40 MG Tablet PO (04:46)
[2023-03-20 05:44] LABS: Hematocrit 26.4 % (37-47)
--- NOTE | 2023-03-20 06:32 | NURSING ---
Pt returned to 2 L O2 for HS.
[2023-03-20] MEDS: Albuterol 2.5 MG/3 ML VIAL.NEB. INHALATION ×2 (07:30→18:50)
[2023-03-20] MEDS: Multivitamins,Therapeutic Tablet 1 TABLET PO (08:07)
[2023-03-20] MEDS: Metoprolol(XL)Succ 50 MG Tablet PO ×2 (08:07→18:15)
[2023-03-20] MEDS: Furosemide 40 MG Tablet PO ×2 (08:07→13:51)
[2023-03-20] MEDS: Iron Polysaccharide Complex 150 MG CAPSULE PO (08:07)
[2023-03-20] MEDS: Potassium Chloride Oral Tablet 20 MEQ PO (08:07)
[2023-03-20] MEDS: Ascorbic Acid 500 MG Tablet PO (08:07)
[2023-03-20] MEDS: Gabapentin 400 MG Capsule PO ×3 (08:08→18:14)
[2023-03-20] MEDS: Budesonide Respules 0.5 MG/2 ML AMPUL.NEB. INHALATION ×2 (09:06→18:50)
--- NOTE | 2023-03-20 09:52 | NURSING ---
turned O2 down to 1 liter from 2 Liters at this time, worked with therapy and remained at 93-97% on 2, will try to wean pt from oxygen.
--- NOTE | 2023-03-20 11:57 | MDS.RN ---
MDS pain interview for JUAN 03/20/23 completed.
--- NOTE | 2023-03-20 13:48 | CASEMGMT ---
Social Work BIMS () and PHQ-9 (04/19) completed for MDS assessment. Bryanna London MSW SOLE FILLER
[2023-03-20] MEDS: Rivaroxaban 10 MG Tablet PO (18:15)
[2023-03-20] MEDS: Montelukast 10 MG Tablet PO (20:52)
[2023-03-20] MEDS: ROSUVASTATIN CALCIUM 40 MG TABLET PO (20:52)
[2023-03-20] MEDS: traZODone 50 MG Tablet PO (20:52)
[2023-03-21 06:00] LABS: Absolute Lymphocyte Count 1.11 X10^3/uL (0.83-4.51); Absolute Neutrophil Count 4.7 X10^3/uL (2.0-7.7); Basophil# 0.08 X10^3/uL; Basophil% 1.1 % (0-1); Eosinophil# 0.23 X10^3/uL; Eosinophils% 3.2 % (0-5); Hematocrit 28.1 % (37-47); Hemoglobin 8.5 g/dL (12.0-15.0); Lymphocyte # 1.11 X10^3/ul (0.83-4.51); Lymphocyte % 15.3 % (19-41); Mean Corp Hgb Conc 30.2 g/dL (32-36); Mean Corpuscular Hgb 29.3 pg (27.0-32.0); Mean Corpuscular Volume 96.9 fL (81-99); Mean Platelet Vol. 9.7 fl (6.2-12.0); Monocyte# 1.15 X10^3/uL; Monocyte% 15.8 % (0-10); NRBC Flagged by Analyzer 0 % (0-5); Neutrophil # 4.67 X10^3/uL (2.7-7.7); Neutrophil % 64.2 % (47-70); Platelet Count 271 K/mm3 (150-450); RBC Distribution Width CV 15.1 % (11.6-14.6); RBC Distribution Width SD 53.6 fl (35.1-43.9); White Blood Count 7.3 K/mm3 (4.4-11.0)
[2023-03-21 06:25] LABS: Anion Gap 2 (5-15); BUN 13 mg/dL (7-18); BUN/Creat Ratio 15.9 RATIO (10-20); Calcium,Total 8.8 mg/dL (8.5-10.1); Chloride 106 mmol/L (98-107); Creatinine, Serum 0.82 mg/dL (0.55-1.02); EST Glomerular Filtration Rate 72 mL/min (>60); Est Glom Filt Rate - Afr Amer 87 mL/min (>60); Estimated Creatinine Clearance 47.92 ml/min; Glucose 96 mg/dL (74-106); Potassium 4.6 mmol/L (3.5-5.1); Sodium Level 137 mmol/L (136-145)
[2023-03-21] MEDS: Acetaminophen 500 MG Tablet 1000 MG PO (06:52)
[2023-03-21] MEDS: Senna/Docusate Sodium 1 Tablet PO (06:53)
[2023-03-21 06:54] VITALS: BP 145/43; PULSE 65
[2023-03-21] MEDS: Metoprolol(XL)Succ 50 MG Tablet PO ×2 (06:54→17:39)
[2023-03-21] MEDS: Pantoprazole Sodium 40 MG Tablet PO (06:55)
[2023-03-21] MEDS: Loratadine 10 MG Tablet PO (06:55)
[2023-03-21] MEDS: Amiodarone 200 MG Tablet PO (06:55)
[2023-03-21] MEDS: Furosemide 40 MG Tablet PO ×2 (06:55→13:02)
[2023-03-21] MEDS: Fluconazole 100 MG Tablet 200 MG PO (06:55)
[2023-03-21] MEDS: traMADol 50 MG Tablet PO (06:58)
[2023-03-21 07:00] VITALS: BMI 24.0
[2023-03-21] MEDS: Albuterol 2.5 MG/3 ML VIAL.NEB. INHALATION ×2 (07:10→13:39)
[2023-03-21] MEDS: Budesonide Respules 0.5 MG/2 ML AMPUL.NEB. INHALATION (07:10)
[2023-03-21] MEDS: Gabapentin 400 MG Capsule PO ×3 (09:02→17:39)
[2023-03-21] MEDS: Multivitamins,Therapeutic Tablet 1 TABLET PO (09:03)
[2023-03-21] MEDS: Iron Polysaccharide Complex 150 MG CAPSULE PO (09:03)
[2023-03-21] MEDS: Potassium Chloride Oral Tablet 20 MEQ PO (09:03)
[2023-03-21] MEDS: Ascorbic Acid 500 MG Tablet PO (09:04)
[2023-03-21] MEDS: Tuberculin,Purif.prot.deriv. 50 TU/ML Vial 0.1 ML ID (09:39)
[2023-03-21 10:10] VITALS: PULSE 70; RESP 21; O2SAT 96
[2023-03-21 13:37] VITALS: PULSE 76; RESP 17
[2023-03-21 15:37] VITALS: BP 104/40; PULSE 62; RESP 16; TEMP 36.6; O2SAT 94
[2023-03-21 17:39] VITALS: PULSE 64
[2023-03-21] MEDS: Rivaroxaban 10 MG Tablet PO (17:39)
[2023-03-21] MEDS: Montelukast 10 MG Tablet PO (21:44)
[2023-03-21] MEDS: traZODone 50 MG Tablet PO (21:44)
[2023-03-21] MEDS: Rosuvastatin 20 MG Tablet 40 MG PO (21:44)
[2023-03-22 03:34] VITALS: PULSE 62; RESP 16; O2SAT 95
[2023-03-22] MEDS: traMADol 50 MG Tablet PO (06:42)
[2023-03-22 06:43] VITALS: BP 116/41; PULSE 65
[2023-03-22] MEDS: Fluconazole 100 MG Tablet 200 MG PO (06:43)
[2023-03-22] MEDS: Metoprolol(XL)Succ 50 MG Tablet PO ×2 (06:43→16:55)
[2023-03-22] MEDS: Amiodarone 200 MG Tablet PO (06:44)
[2023-03-22] MEDS: Loratadine 10 MG Tablet PO (06:44)
[2023-03-22] MEDS: Furosemide 40 MG Tablet PO ×2 (06:44→13:05)
[2023-03-22] MEDS: Pantoprazole Sodium 40 MG Tablet PO (06:44)
[2023-03-22 07:00] VITALS: BMI 23.9
[2023-03-22 07:17] LABS: Hematocrit 32.3 % (37-47); Hemoglobin 10.1 g/dL (12.0-15.0)
[2023-03-22] MEDS: Gabapentin 400 MG Capsule PO ×3 (08:14→16:54)
[2023-03-22] MEDS: Iron Polysaccharide Complex 150 MG CAPSULE PO (08:14)
[2023-03-22] MEDS: Potassium Chloride Oral Tablet 20 MEQ PO (08:14)
[2023-03-22] MEDS: Multivitamins,Therapeutic Tablet 1 TABLET PO (08:15)
[2023-03-22] MEDS: Ascorbic Acid 500 MG Tablet PO (08:15)
[2023-03-22 13:49] VITALS: PULSE 62; RESP 18
[2023-03-22] MEDS: Albuterol 2.5 MG/3 ML VIAL.NEB. INHALATION (13:49)
[2023-03-22 15:21] VITALS: BP 113/59; PULSE 59; RESP 16; TEMP 36.9; O2SAT 92
[2023-03-22] MEDS: Rivaroxaban 10 MG Tablet PO (16:54)
[2023-03-22 16:55] VITALS: PULSE 59
[2023-03-22] MEDS: Rosuvastatin 20 MG Tablet 40 MG PO (22:13)
[2023-03-22] MEDS: Montelukast 10 MG Tablet PO (22:14)
[2023-03-22] MEDS: traZODone 50 MG Tablet PO (22:14)
[2023-03-23 06:00] VITALS: BMI 23.6
[2023-03-23 06:14] LABS: Hematocrit 30.6 % (37-47); Hemoglobin 9.4 g/dL (12.0-15.0)
[2023-03-23 06:28] VITALS: BP 117/60; PULSE 59
[2023-03-23] MEDS: Metoprolol(XL)Succ 50 MG Tablet PO ×2 (06:28→17:22)
[2023-03-23] MEDS: Fluconazole 100 MG Tablet 200 MG PO (06:28)
[2023-03-23] MEDS: Loratadine 10 MG Tablet PO (06:28)
[2023-03-23] MEDS: Pantoprazole Sodium 40 MG Tablet PO (06:28)
[2023-03-23] MEDS: Amiodarone 200 MG Tablet PO (06:28)
[2023-03-23] MEDS: Furosemide 40 MG Tablet PO ×2 (06:28→14:26)
[2023-03-23] MEDS: traMADol 50 MG Tablet PO (06:33)
[2023-03-23] MEDS: Albuterol 2.5 MG/3 ML VIAL.NEB. INHALATION (07:19)
[2023-03-23] MEDS: Budesonide Respules 0.5 MG/2 ML AMPUL.NEB. INHALATION (07:20)
[2023-03-23 07:58] VITALS: PULSE 60; RESP 18; O2SAT 93
[2023-03-23] MEDS: Gabapentin 400 MG Capsule PO ×3 (07:59→17:22)
[2023-03-23] MEDS: Potassium Chloride Oral Tablet 20 MEQ PO (08:00)
[2023-03-23] MEDS: Multivitamins,Therapeutic Tablet 1 TABLET PO (08:00)
[2023-03-23] MEDS: Ascorbic Acid 500 MG Tablet PO (08:01)
[2023-03-23] MEDS: Iron Polysaccharide Complex 150 MG CAPSULE PO (08:01)
[2023-03-23 15:33] VITALS: BP 106/49; PULSE 58; RESP 16; TEMP 36.6; O2SAT 94
[2023-03-23 17:22] VITALS: PULSE 58
[2023-03-23] MEDS: Senna/Docusate Sodium 1 Tablet PO (17:22)
[2023-03-23] MEDS: Rivaroxaban 10 MG Tablet PO (17:22)
[2023-03-23] MEDS: Rosuvastatin 20 MG Tablet 40 MG PO (21:50)
[2023-03-23] MEDS: traZODone 50 MG Tablet PO (21:50)
[2023-03-23] MEDS: Montelukast 10 MG Tablet PO (21:50)
[2023-03-23 22:00] VITALS: PULSE 45; RESP 16; O2SAT 95
[2023-03-24] VITALS (7 sets, daily range): BP systolic 110–131; BP diastolic 49–52; PULSE 55–71; RESP 14–20; TEMP 37.1; O2SAT 93; BMI 24.0
[2023-03-24 05:41] LABS: Hemoglobin 8.5 g/dL (12.0-15.0)
[2023-03-24] MEDS: Metoprolol(XL)Succ 50 MG Tablet PO ×2 (06:04→17:21)
[2023-03-24] MEDS: Pantoprazole Sodium 40 MG Tablet PO (06:04)
[2023-03-24] MEDS: Furosemide 40 MG Tablet PO ×2 (06:05→14:33)
[2023-03-24] MEDS: Fluconazole 100 MG Tablet 200 MG PO (06:05)
[2023-03-24] MEDS: Amiodarone 200 MG Tablet PO (06:05)
[2023-03-24] MEDS: Loratadine 10 MG Tablet PO (06:05)
[2023-03-24] MEDS: traMADol 50 MG Tablet PO (06:11)
[2023-03-24] MEDS: Albuterol 2.5 MG/3 ML VIAL.NEB. INHALATION ×2 (07:30→19:22)
[2023-03-24] MEDS: Budesonide Respules 0.5 MG/2 ML AMPUL.NEB. INHALATION ×2 (07:30→19:22)
[2023-03-24] MEDS: Multivitamins,Therapeutic Tablet 1 TABLET PO (08:23)
[2023-03-24] MEDS: Iron Polysaccharide Complex 150 MG CAPSULE PO (08:23)
[2023-03-24] MEDS: Gabapentin 400 MG Capsule PO ×3 (08:23→17:22)
[2023-03-24] MEDS: Potassium Chloride Oral Tablet 20 MEQ PO (08:23)
[2023-03-24] MEDS: Ascorbic Acid 500 MG Tablet PO (08:24)
--- NOTE | 2023-03-24 11:40 | MDS.RN ---
Information for the mds was obtained from review of the clinical record, interview of resident, staff, and direct observation of resident's care.
--- NOTE | 2023-03-24 14:51 | CASEMGMT ---
Social Work Received call from dtr inquiring about insurance outcome and DC plans. Dtr explained she has plans to go out of state for her son's graduation from 03/27-03/30 and is aware pt has some medical changes. SW explained the insurance update has already been submitted but will update reviewer on this information. Dtr appreciative. SW updated reviewer and case already went to MD review. Received LCD 03/27. Reviewer stated If orders or change[s] occur between now and tomorrow, or even now and d/c, just [let the reviewer know] and we can rescind at that point. SW left written communication for Dr. Chatterjee to explain if pt is not medically stable to DC, to notify this worker for possible DC extension. Otherwise, pt will DC home 03/28. SW contacted dtr to update on above. SW explained pt can DC prior to 03/28 or pt can pay privately to remain after 03/28. Dtr states pt cannot pay privately, and will speak with family on what to do for DC. SW to keep dtr updated and will speak with dtr the following day to finalize DC plans and needs. SW to continue to follow. Plan: Tentative DC 03/28 home GEOVANNA HawleyW
--- NOTE | 2023-03-24 18:07 | NURSING ---
dr amos notified of + occult stool & anemia, new order to consult GI in AM. Insurance issued Discharge for 03/28/23.
--- NOTE | 2023-03-24 19:10 | PCM.DC.SUM ---
Providers Date of Admission: 03/13/23 Primary Care Physician: Dr. Jackson Greer DO Reason For Visit: REDO AVR/ASENDING AROTA TOM ARCH REPAIR Diagnosis Discharge Diagnosis (1) Debility: Status: Acute Code(s): R53.81 - Other malaise (2) Prosthetic aortic valve stenosis: Status: Acute Code(s): T82.857A - Stenosis of other cardiac prosthetic devices, implants and grafts, initial encounter (3) Acute respiratory failure with hypoxia: Status: Acute Code(s): J96.01 - Acute respiratory failure with hypoxia (4) Aspiration pneumonia: Status: Acute Code(s): J69.0 - Pneumonitis due to inhalation of food and vomit (5) Urinary tract infection: Status: Acute Code(s): N39.0 - Urinary tract infection, site not specified (6) Atrial fibrillation with rapid ventricular response: Status: Acute Code(s): I48.91 - Unspecified atrial fibrillation (7) Neuropathic pain: Status: Acute Code(s): M79.2 - Neuralgia and neuritis, unspecified (8) Asthma: Status: Acute Code(s): J45.909 - Unspecified asthma, uncomplicated (9) Muscle spasm: Status: Acute Code(s): M62.838 - Other muscle spasm (10) Iron deficiency anemia: Status: Acute Code(s): D50.9 - Iron deficiency anemia, unspecified (11) Allergic rhinitis: Status: Acute Code(s): J30.9 - Allergic rhinitis, unspecified (12) GERD (gastroesophageal reflux disease): Status: Acute Code(s): K21.9 - Gastro-esophageal reflux disease without esophagitis (13) Insomnia: Status: Acute Code(s): G47.00 - Insomnia, unspecified (14) Osteoarthritis: Status: Acute Code(s): M19.90 - Unspecified osteoarthritis, unspecified site (15) Essential (primary) hypertension: Status: Acute Code(s): I10 - Essential (primary) hypertension Plan 77 year old female with severe bioprosthetic aortic stenosis, admitted to [facility], underwent Redo AVR, Ascending aorta with tom arch repair and TVR, complicated by aspiration pneumonia, fungal urinary tract infection, atrial fibrillation with rapid ventricular response, admitted to TCU with debility, here for rehabilitation, strengthening, prior to discharge home alone. Debility - PT/OT. Pain - Tylenol 1000mg q6h prn pain (1-10), Tramadol 50mg daily. Bowel - Miralax 17gm daily, senna/colace 1 tablet bid, MOM 30ml po daily prn. Adult immunization - Administer pneumonia vaccine, covid19 vaccine, flu vaccine as appropriate. DVT prophylaxis - Xarelto 10mg daily x 30 days. Asthma - Budesonide 0.5mg neb Q12H, Albuterol 2.5mg neb q6hwa, 2.5mg neb q6h prn. Atrial fibrillation - Metoprolol succinate 50mg bid, Amiodarone 400mg daily thru 03/18/2023, then 200mg daily. Iron deficiency anemia - Ferrous sulfate 325mg daily, Vitamin C 500mg daily. Muscle spasm - Flexeril 5mg bid prn. Fungal urinary tract infection - Fluconazole 200mg daily thru 03/26/2023. Neuropathic pain - Gabapentin 400mg tidcm. Congestion - Mucinex 600mg q12h prn. Allergic rhinitis - Loratadine 10mg daily, Singulair 10mg daily. Indigestion - Mylanta II 30ml q6h prn. Nutrition - MVI daily. GERD - Pantoprazole 40mg daily. Hyperlipidemia - Rosuvastatin 40mg qhs. Medications at Discharge Home Medications gabapentin 400 mg capsule 400 mg PO TIDCM PAIN 09/04/15 albuterol sulfate 90 mcg/actuation aerosol inhaler (ProAir HFA) 2 puff inhalation Q6H PRN PRN Asthma 08/17/18 cyclobenzaprine 5 mg tablet 5 mg PO BID PRN BACK SPASMS 08/17/18 loratadine 10 mg tablet (Allergy Relief (loratadine)) 10 mg PO DAILY ALLERGIES 08/17/18 montelukast 10 mg tablet (Singulair) 10 mg PO DAILY ALLERGIES 08/17/18 pantoprazole 40 mg tablet,delayed release 40 mg PO DAILY STOMACH ACID 08/17/18 trazodone 50 mg tablet 50 mg PO QHS SLEEP 08/17/18 ascorbic acid (vitamin C) 1,000 mg tablet (Vitamin C) 3,000 mg PO DAILY SUPPLEMENT 10/23/22 fluticasone furoate 200 mcg-vilanterol 25 mcg/dose inhalation powder (Breo Ellipta) 1 inh inhalation Q OTHER DAY Asthma 10/23/22 aspirin 81 mg chewable tablet 81 mg PO DAILY Heart 12/06/22 rosuvastatin 40 mg tablet 40 mg PO DAILY Cholesterol 01/29/23 multivitamin 1 tab PO DAILY Supplement 03/13/23 acetaminophen 500 mg tablet 1,000 mg PO Q6H PRN PRN Pain Score 1-10 #0 tabs 03/24/23 amiodarone 200 mg tablet 200 mg PO DAILY 30 days #30 tabs 03/24/23 furosemide 40 mg tablet 40 mg PO 0600,1400 #0 tabs 03/24/23 metoprolol succinate 50 mg tablet,extended release 24 hr 50 mg PO BID 30 days #60 tabs 03/24/23 polysaccharide iron complex 150 mg iron capsule (Ferrex) 150 mg PO BREAKFAST 30 days #30 caps 03/24/23 potassium chloride 20 mEq tablet,extended release(part/cryst) (Klor-Con M) 20 meq PO DAILYCM 30 days #30 tabs 03/24/23 Hospital Course Operations - (See below.) Procedures None Summary of Care Provided Minutes Spent on Discharge: 35 Hospital Course: 77 year old female with severe bioprosthetic aortic stenosis, admitted to [facility], underwent Redo AVR, Ascending aorta with tom arch repair and TVR, complicated by aspiration pneumonia, fungal urinary tract infection, atrial fibrillation with rapid ventricular response, admitted to TCU with debility, here for rehabilitation, strengthening, prior to discharge home alone. 03/24/2023 Hemoglobin 8.5, Stool guaiac positive, Xarelto (DVT prophylaxis stopped), Dr. Hernandez (GI) consulted. Hemoglobin will be monitored. Discharge home alone 03/28/2023. Physical Exam Const alert General Appearance: cooperative HEENT normocephalic Eyes PERRL and EOMs intact bilaterally Neck supple, no JVD and no carotid bruits Resp normal respiratory effort, normal air movement and clear to auscultation bilaterally Cardio regular rate and regular rhythm GI normal to inspection, nondistended, normoactive bowel sounds, non-tender and non-distended Extremity normal capillary refill General Extremity: Negative for edema Skin no rashes or lesions noted General Skin Exam: no breakdown Psych affect normal Appearance: appropriate Weight / BMI Weight Weight: 54.006 kg Body Mass Index (BMI) 24.0 ABG / Lab / Microbiology Data Result Diagrams: 03/24/23 05:31 03/21/23 05:40 Laboratory: Laboratory Results - last 24 hr 03/24/23 05:31: Hgb 8.5 L, Hct 28.0 L Microbiology: Microbiology 03/24/23 06:35 Stool Stool Occult Blood (JONATHAN) - Final Occult Blood Positive 03/17/23 05:20 Nasal Secretion SARS-CoV-2 Antigen (Rapid) - Final 03/15/23 05:37 Nasal Secretion SARS-CoV-2 Antigen (Rapid) - Final 03/13/23 21:15 Nasal Secretion SARS-CoV-2 Antigen (Rapid) - Final D/C Instructions Discharge Diet: No restrictions Discharge Activity: Return to Normal Activity, May Shower and Use Walker Weight Bearing Status: Weight bearing as tolerated Call your doctor if you observe: Fever of 101 or Higher, Inability to urinate, Inability to have a bowel movement, Shortness of breath, Dizziness, Fainting spells, Swelling in the ankles, Chest pain and Uncontrolled pain Additional Instructions: Discharge home alone 03/28/2023. Please Follow Up With: Radha Clay APRN, CNP When: As scheduled. Meaningful Use Info Meaningful Use Diagnoses (Choose all that apply): None applicable Discharge Plan Admission Admit Date/Time: 03/13/23 17:11 Primary Reason for Your Visit: Debility. Attending Provider: Gautam Chatterjee Chi Primary Care Provider: Jackson Greer Instructions Additional Instructions / Restrictions: Discharge home alone 03/28/2023. Discharge Orders/Prescriptions Prescriptions: New acetaminophen 500 mg Tablet 1,000 mg PO Q6H PRN PRN (Reason: Pain Score 1-10) Qty: 0 0RF furosemide 40 mg Tablet 40 mg PO 0600,1400 Qty: 0 0RF amiodarone 200 mg Tablet 200 mg PO DAILY 30 Days Qty: 30 0RF metoprolol succinate 50 mg Tablet Extended Release 24 Hr 50 mg PO BID 30 Days Qty: 60 0RF polysaccharide iron complex [Ferrex 150] 150 mg iron Capsule 150 mg PO BREAKFAST 30 Days Qty: 30 0RF potassium chloride [Klor-Con M20] 20 mEq Tablet,Er Particles/Crystals 20 meq PO DAILYCM 30 Days Qty: 30 0RF Continued fluticasone furoate-vilanterol [Breo Ellipta] 200-25 mcg/dose blister with device 1 inh inhalation Q OTHER DAY aspirin 81 mg tablet,chewable 81 mg PO DAILY rosuvastatin 40 mg tablet 40 mg PO DAILY gabapentin 400 MG capsule 400 mg PO TIDCM trazodone 50 MG tablet 50 mg PO QHS pantoprazole 40 MG tablet 40 mg PO DAILY montelukast [Singulair] 10 MG tablet 10 mg PO DAILY albuterol sulfate [ProAir HFA] 1 PUFF inhaler 2 puff inhalation Q6H PRN PRN (Reason: Asthma) loratadine [Allergy Relief (loratadine)] 10 MG tablet 10 mg PO DAILY cyclobenzaprine 5 MG tablet 5 mg PO BID PRN (Reason: BACK SPASMS) ascorbic acid (vitamin C) [Vitamin C] 1,000 mg tablet 3,000 mg PO DAILY multivitamin Tablet 1 tab PO DAILY Discontinued acetaminophen [Tylenol] 325 mg capsule 1,000 mg PO ONCE PRN (Reason: Pain) furosemide 40 mg tablet 40 mg PO BID tramadol 50 mg tablet 50 mg PO DAILY multivitamin with folic acid [Thera] 1 TABLET tablet 1 tab PO DAILY calcium carbonate-vitamin D3 1 EACH tablet 1 tab PO TID vitamin E (dl, acetate) 180 mg (400 unit) capsule 180 mg PO TID ferrous sulfate 325 MG tablet 325 mg PO DAILY@0800 carvedilol 12.5 mg tablet 12.5 mg PO BID polyethylene glycol 3350 [Miralax] 17 gram Powder In Packet 17 g PO DAILY metoprolol succinate 50 mg Tablet Extended Release 24 Hr 50 mg PO BID fluconazole [Diflucan] 200 mg Tablet 200 mg PO DAILY heparin (bovine) 5,000 unit/mL Solution 5,000 unit Q12H magnesium hydroxide 400 mg/5 mL Suspension 30 ml PO DAILY PRN (Reason: Constipation) amiodarone 400 mg Tablet 400 mg PO DAILY Senna Plus (senna-docusate) Tablet 1 tab PO BID aluminum-magnesium hydroxide 200-200 mg/5 mL Suspension 5 ml PO Q4H PRN (Reason: Gas) guaifenesin [Mucinex] 600 mg Tablet Extended Release 12hr 600 mg PO Q12H PRN (Reason: Cough) meloxicam 7.5 MG tablet 7.5 mg PO BID Referrals / Follow Up: Jackson Greer DO [Primary Care Provider] - 04/03/23 1:00 pm Disposition Disposition (needs filled in before D/C Order can be placed): Home, Self Care
[2023-03-24] MEDS: Montelukast 10 MG Tablet PO (20:35)
[2023-03-24] MEDS: Rosuvastatin 20 MG Tablet 40 MG PO (20:35)
[2023-03-24] MEDS: traZODone 50 MG Tablet PO (20:36)
[2023-03-25] VITALS (9 sets, daily range): BP systolic 122–132; BP diastolic 42–63; PULSE 54–73; RESP 16–20; TEMP 36.1–36.9; O2SAT 90–93; BMI 23.7
[2023-03-25 05:32] LABS: Hematocrit 32.2 % (37-47); Hemoglobin 9.8 g/dL (12.0-15.0)
[2023-03-25] MEDS: Fluconazole 100 MG Tablet 200 MG PO (06:20)
[2023-03-25] MEDS: Loratadine 10 MG Tablet PO (06:20)
[2023-03-25] MEDS: Pantoprazole Sodium 40 MG Tablet PO (06:20)
[2023-03-25] MEDS: Amiodarone 200 MG Tablet PO (06:20)
[2023-03-25] MEDS: traMADol 50 MG Tablet PO (06:20)
[2023-03-25] MEDS: Furosemide 40 MG Tablet PO ×2 (06:21→13:32)
[2023-03-25] MEDS: Budesonide Respules 0.5 MG/2 ML AMPUL.NEB. INHALATION ×2 (07:25→19:18)
[2023-03-25] MEDS: Albuterol 2.5 MG/3 ML VIAL.NEB. INHALATION ×3 (07:25→19:18)
[2023-03-25] MEDS: Potassium Chloride Oral Tablet 20 MEQ PO (07:49)
[2023-03-25] MEDS: Iron Polysaccharide Complex 150 MG CAPSULE PO (07:49)
[2023-03-25] MEDS: Ascorbic Acid 500 MG Tablet PO (07:49)
[2023-03-25] MEDS: Multivitamins,Therapeutic Tablet 1 TABLET PO (07:49)
[2023-03-25] MEDS: Gabapentin 400 MG Capsule PO ×3 (07:49→18:23)
--- NOTE | 2023-03-25 11:13 | NURSING ---
Addendum entered by Jannette Fernandez 03/25/23 13:35: Call back from [facility], per Oc message was received and Dr. Hernandez is aware of consult. Original Note: multiple attempts made to call [facility], no answer. RN left voicemail for consult. Return number left.
--- NOTE | 2023-03-25 16:39 | CASEMGMT ---
Addendum entered by Bryanna London 03/25/23 17:11: Dtr provided preferences for HHC. First choice is [facility]. Phoned referral for PT/OT/SN. Original Note: Social Work SW left message with dtr to follow up on DC plans as pts DC is confirmed 03/28. Received return call. Dtr spoke with Dr. Chatterjee last evening whom confirmed DC. Dtr has spoken to friends that can assist pt at home while family is away, and will be transporting pt at 1500 on 03/28. Dtr states nursing can review DC instructions with pt so when friend arrives for transport, pt is ready for DC. SW offered HHC vs OP. Dtr requesting HHC and has no preference of HHC agency, requesting list sent secure email. Dtr provided email. SW sent skilled HHC list with quality and resource data via [employer]. No DME needs. Plan: DC home alone 03/28, HHC PT/OT/SN Bryanna London, GEOVANNA LEAHYW
[2023-03-25] MEDS: Metoprolol(XL)Succ 50 MG Tablet PO (18:23)
[2023-03-25] MEDS: Acetaminophen 500 MG Tablet 1000 MG PO (18:24)
[2023-03-25] MEDS: Rosuvastatin 20 MG Tablet 40 MG PO (21:47)
[2023-03-25] MEDS: traZODone 50 MG Tablet PO (21:47)
[2023-03-25] MEDS: Montelukast 10 MG Tablet PO (21:47)
[2023-03-26] VITALS (7 sets, daily range): BP systolic 118–159; BP diastolic 35–40; PULSE 55–72; RESP 16–20; TEMP 36.9; O2SAT 92–97; BMI 23.8
[2023-03-26] MEDS: traMADol 50 MG Tablet PO (05:09)
[2023-03-26] MEDS: Amiodarone 200 MG Tablet PO (05:09)
[2023-03-26] MEDS: Pantoprazole Sodium 40 MG Tablet PO (05:09)
[2023-03-26] MEDS: Loratadine 10 MG Tablet PO (05:09)
[2023-03-26] MEDS: Fluconazole 100 MG Tablet 200 MG PO (05:12)
[2023-03-26] MEDS: Budesonide Respules 0.5 MG/2 ML AMPUL.NEB. INHALATION ×2 (07:00→19:52)
[2023-03-26] MEDS: Albuterol 2.5 MG/3 ML VIAL.NEB. INHALATION ×3 (07:00→19:52)
[2023-03-26] MEDS: Gabapentin 400 MG Capsule PO ×3 (08:00→17:59)
[2023-03-26] MEDS: Iron Polysaccharide Complex 150 MG CAPSULE PO (08:00)
[2023-03-26] MEDS: Multivitamins,Therapeutic Tablet 1 TABLET PO (08:00)
[2023-03-26] MEDS: Potassium Chloride Oral Tablet 20 MEQ PO (08:00)
[2023-03-26] MEDS: Ascorbic Acid 500 MG Tablet PO (08:00)
[2023-03-26] MEDS: Metoprolol(XL)Succ 50 MG Tablet PO (17:59)
[2023-03-26] MEDS: Senna/Docusate Sodium 1 Tablet PO (17:59)
--- NOTE | 2023-03-26 18:03 | NURSING ---
Friend to unit to see pt
--- NOTE | 2023-03-26 18:08 | CON.PCM.GI_ITS ---
HPI Consult Data Date of Consult: 03/26/23 HPI Narrative Reason for Consultation: Anemia HPI Narrative: Chencho DALE, is a 77 F who is currently in the transitional care unit. She has been a regular blood donor until June 2022, was diagnosed with iron deficiency years earlier and has been on an oral iron supplement . August 2022 she was declined as a blood donor due to significant anemia.? She is unaware of any external blood loss but stool guaiacs performed at her PCP practice were + September 02, 2022. Work-up was consistent with chronic iron deficiency anemia.? She improved with iron supplementation. She did undergo an EGD and colonoscopy by Dr. Indira Chatman back in 2014 and did not show any etiology of her anemia at that time. 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 October 13 capsule endoscopy showed severe diffuse inflammation in the small bowel [facility] Medical History Abnormal ECG Acute bronchiolitis Anemia Anemia, normocytic normochromic Arthritis Asthma Chronic back pain Chronic blood loss anemia Dysarthria Essential hypertension, benign Fatigue Heart murmur Insomnia Mixed hyperlipidemia Multilevel degenerative disc disease Osteopenia Prosthetic aortic valve stenosis Shortness of breath on exertion Home Medications gabapentin 400 mg capsule 400 mg PO TIDCM PAIN 09/04/15 [History Last Taken 10/21/18 04:30] albuterol sulfate 90 mcg/actuation aerosol inhaler (ProAir HFA) 2 puff inhalation Q6H PRN PRN Asthma 08/17/18 [History Last Taken 09/01/18 04:00] cyclobenzaprine 5 mg tablet 5 mg PO BID PRN BACK SPASMS 08/17/18 [History Last Taken Unknown] loratadine 10 mg tablet (Allergy Relief (loratadine)) 10 mg PO DAILY ALLERGIES 08/17/18 [History Last Taken 10/21/18 04:30] montelukast 10 mg tablet (Singulair) 10 mg PO DAILY ALLERGIES 08/17/18 [History Last Taken Unknown] pantoprazole 40 mg tablet,delayed release 40 mg PO DAILY STOMACH ACID 08/17/18 [History Last Taken 09/01/18 04:00] trazodone 50 mg tablet 50 mg PO QHS SLEEP 08/17/18 [History Last Taken Unknown] ascorbic acid (vitamin C) 1,000 mg tablet (Vitamin C) 3,000 mg PO DAILY SUPPLEMENT 10/23/22 [History Last Taken Unknown] fluticasone furoate 200 mcg-vilanterol 25 mcg/dose inhalation powder (Breo Ellipta) 1 inh inhalation Q OTHER DAY Asthma 10/23/22 [History Last Taken Unknown] aspirin 81 mg chewable tablet 81 mg PO DAILY Heart 12/06/22 [History Last Taken 12/16/22] rosuvastatin 40 mg tablet 40 mg PO DAILY Cholesterol 01/29/23 [History Last Taken Unknown] multivitamin 1 tab PO DAILY Supplement 03/13/23 [History Last Taken Unknown] acetaminophen 500 mg tablet 1,000 mg PO Q6H PRN PRN Pain Score 1-10 #0 tabs 03/24/23 [Rx Last Taken Unknown] amiodarone 200 mg tablet 200 mg PO DAILY 30 days #30 tabs 03/24/23 [Rx Last Taken Unknown] furosemide 40 mg tablet 40 mg PO 0600,1400 #0 tabs 03/24/23 [Rx Last Taken Unknown] metoprolol succinate 50 mg tablet,extended release 24 hr 50 mg PO BID 30 days #60 tabs 03/24/23 [Rx Last Taken Unknown] polysaccharide iron complex 150 mg iron capsule (Ferrex) 150 mg PO BREAKFAST 30 days #30 caps 03/24/23 [Rx Last Taken Unknown] potassium chloride 20 mEq tablet,extended release(part/cryst) (Klor-Con M) 20 meq PO DAILYCM 30 days #30 tabs 03/24/23 [Rx Last Taken Unknown] Allergy/AdvReac Type Severity Reaction Status Date / Time No Known Allergies Allergy Verified 02/04/23 14:02 Family History Father Heart disease Brother Heart disease Mother Dementia Surgical History Cataract extraction status of eye (~2015) H/O foot surgery History of aortic valve replacement (~06/30/17) History of appendectomy History of bunionectomy History of tonsillectomy and adenoidectomy Total knee replacement status (~10/21/18) Social History (Updated 03/13/23 @ 20:[address] Gautam Chatterjee MD) household members: none Smoking Status: Never smoker alcohol intake: never substance use type: does not use caffeine: Yes (2-3/wk) Type: coffee ROS Constitutional Constitutional: Denies chills, fever(s) or weight gain ENT HEENT: Denies headache(s), nasal congestion or nasal discharge Cardiovascular Cardiovascular: Denies chest pain or palpitations Respiratory/Chest Respiratory/Chest: Denies cough, excessive phlegm production or shortness of breath with exertion Gastrointestinal Gastrointestinal: Denies abdominal pain, nausea or vomiting Genitourinary Genitourinary: Denies dysuria Musculoskeletal Musculoskeletal: Denies joint pain or joint swelling Integumentary Integumentary: Denies rash or wounds Neurologic Neurologic: Denies focal weakness, numbness or tingling Psychiatric Psychiatric: Denies anxiety, auditory hallucinations, depression, homicidal id eation or suicidal ideation Physical Exam Const alert General Appearance: cooperative HEENT normocephalic Eyes PERRL and EOMs intact bilaterally Neck supple, no JVD and no carotid bruits Resp normal respiratory effort, normal air movement and clear to auscultation bilaterally Cardio regular rate and regular rhythm GI normal to inspection, nondistended, normoactive bowel sounds, non-tender and non-distended Extremity normal capillary refill General Extremity: Negative for edema Skin no rashes or lesions noted General Skin Exam: no breakdown Psych affect normal Appearance: appropriate Lab / Micro Data Result Diagrams: 03/25/23 05:16 03/21/23 05:40 Assessment & Plan Assessment/Plan (1) Iron deficiency anemia: PLAN: The differential diagnosis for iron deficiency anemia does include Jaspal's erosions, gastric antral vascular ectasia, angiodysplasia, telangie ctasia, small bowel inflammation, celiac disease. I will perform an upper endoscopy tomorrow and if that is negative she may need a colonoscopy. She is not on anticoagulation due to her history of atrial fibrillation rapid ventricular rate is. Currently this time normal sinus rhythm. She could be aspirin on a daily basis and we will hold that medication if any source of bleeding is found tomorrow. Charges/Coding Visit Charges Inpatient E&M: 96494 Init Hosp L2
[2023-03-26] MEDS: Rosuvastatin 20 MG Tablet 40 MG PO (22:21)
[2023-03-26] MEDS: Montelukast 10 MG Tablet PO (22:21)
[2023-03-26] MEDS: traZODone 50 MG Tablet PO (22:21)
[2023-03-27 07:00] VITALS: O2SAT 93
[2023-03-27 16:00] VITALS: BP 130/58; PULSE 59; RESP 18; TEMP 36.7; O2SAT 92
--- NOTE | 2023-03-27 16:30 | NURSING ---
Return from EGD at this time. Noted gastritis to all areas and took BX. Large hiatal hernia that patient was aware of. Argon plasma cauterization to gastric erosions to prevent further bleeding. Patient tolerated procedure well. NO to increase pantoprazole to 40mg BID. May return to normal diet.
[2023-03-27] MEDS: Iron Polysaccharide Complex 150 MG CAPSULE PO (18:50)
[2023-03-27] MEDS: Loratadine 10 MG Tablet PO (18:50)
[2023-03-27] MEDS: Pantoprazole Sodium 40 MG Tablet PO (18:51)
[2023-03-27] MEDS: Potassium Chloride Oral Tablet 20 MEQ PO (18:51)
[2023-03-27] MEDS: Ascorbic Acid 500 MG Tablet PO (18:51)
[2023-03-27] MEDS: Multivitamins,Therapeutic Tablet 1 TABLET PO (18:51)
[2023-03-27 18:52] VITALS: BP 130/58; PULSE 59
[2023-03-27] MEDS: Metoprolol(XL)Succ 50 MG Tablet PO (18:52)
[2023-03-27] MEDS: traMADol 50 MG Tablet PO (19:05)
[2023-03-27] MEDS: Gabapentin 400 MG Capsule PO (19:05)
[2023-03-27 19:36] VITALS: BMI 23.6
[2023-03-27] MEDS: Rosuvastatin 20 MG Tablet 40 MG PO (21:09)
[2023-03-27] MEDS: traZODone 50 MG Tablet PO (21:09)
[2023-03-27] MEDS: Montelukast 10 MG Tablet PO (21:10)
[2023-03-27 21:14] VITALS: PULSE 89; RESP 16; O2SAT 90
[2023-03-28 05:48] LABS: Absolute Lymphocyte Count 1.26 X10^3/uL (0.83-4.51); Absolute Neutrophil Count 3.1 X10^3/uL (2.0-7.7); Basophil# 0.07 X10^3/uL; Basophil% 1.3 % (0-1); Eosinophil# 0.29 X10^3/uL; Eosinophils% 5.3 % (0-5); Hematocrit 29.4 % (37-47); Hemoglobin 8.7 g/dL (12.0-15.0); Lymphocyte # 1.26 X10^3/ul (0.83-4.51); Lymphocyte % 22.9 % (19-41); Mean Corp Hgb Conc 29.6 g/dL (32-36); Mean Corpuscular Hgb 29.1 pg (27.0-32.0); Mean Corpuscular Volume 98.3 fL (81-99); Mean Platelet Vol. 10.4 fl (6.2-12.0); Monocyte% 14.5 % (0-10); NRBC Flagged by Analyzer 0 % (0-5); Neutrophil # 3.07 X10^3/uL (2.7-7.7); Neutrophil % 55.6 % (47-70); Platelet Count 156 K/mm3 (150-450); RBC Distribution Width CV 15.7 % (11.6-14.6); RBC Distribution Width SD 56.2 fl (35.1-43.9); Red Blood Count 2.99 M/mm3 (4.2-5.4); White Blood Count 5.5 K/mm3 (4.4-11.0)
[2023-03-28 06:00] VITALS: BMI 23.5
[2023-03-28 06:13] LABS: Anion Gap 8 (5-15); BUN 9 mg/dL (7-18); BUN/Creat Ratio 12.7 RATIO (10-20); Calcium,Total 8.8 mg/dL (8.5-10.1); Chloride 110 mmol/L (98-107); Creatinine, Serum 0.71 mg/dL (0.55-1.02); EST Glomerular Filtration Rate 85 mL/min (>60); Est Glom Filt Rate - Afr Amer 102 mL/min (>60); Estimated Creatinine Clearance 38.35 ml/min; Glucose 90 mg/dL (74-106); Potassium 4.6 mmol/L (3.5-5.1); Sodium Level 142 mmol/L (136-145)
[2023-03-28] MEDS: traMADol 50 MG Tablet PO (06:14)
[2023-03-28] MEDS: Pantoprazole Sodium 40 MG Tablet PO (06:14)
[2023-03-28] MEDS: Amiodarone 200 MG Tablet PO (06:14)
[2023-03-28 06:15] VITALS: BP 143/53; PULSE 64
[2023-03-28] MEDS: Metoprolol(XL)Succ 50 MG Tablet PO (06:15)
[2023-03-28] MEDS: Loratadine 10 MG Tablet PO (06:19)
[2023-03-28] MEDS: Gabapentin 400 MG Capsule PO ×2 (08:16→12:05)
[2023-03-28 08:30] VITALS: O2SAT 92
[2023-03-28] MEDS: Potassium Chloride Oral Tablet 20 MEQ PO (10:38)
[2023-03-28] MEDS: Iron Polysaccharide Complex 150 MG CAPSULE PO (10:39)
[2023-03-28] MEDS: Ascorbic Acid 500 MG Tablet PO (10:39)
[2023-03-28 16:14] VITALS: BP 116/45; PULSE 65; RESP 17; TEMP 36.9; O2SAT 96
== END 2023-03-28 16:00 | disposition home health service (06) | DRG 949 ==
PROVIDERS: Admitting Provider Family Medicine Geriatric Medicine; PCP Family Medicine; Visit Provider Family Medicine Geriatric Medicine
DX: Z48.812 Encounter for surgical aftercare following surgery on the circulatory system (principal); J69.0 Pneumonitis due to inhalation of food and vomit; N39.0 Urinary tract infection, site not specified; I48.91 Unspecified atrial fibrillation; D50.9 Iron deficiency anemia, unspecified; G62.9 Polyneuropathy, unspecified; E78.2 Mixed hyperlipidemia; I35.0 Nonrheumatic aortic (valve) stenosis; K21.9 Gastro-esophageal reflux disease without esophagitis; M62.838 Other muscle spasm; J45.909 Unspecified asthma, uncomplicated; I10 Essential (primary) hypertension; M19.90 Unspecified osteoarthritis, unspecified site; Z79.82 Long term (current) use of aspirin; G47.00 Insomnia, unspecified; Z79.51 Long term (current) use of inhaled steroids; Z79.899 Other long term (current) drug therapy; Z79.01 Long term (current) use of anticoagulants
CPT/HCPCS: 36415; 71046; 80048; 82274; 85014; 85018; 85025; 87426; 87811; 94640; 94667; 97110; 97116; 97162; 97166; 97530; 97535; 97802; J2405

== ENCOUNTER 2023-03-27 12:53 | Day surgery (SDC) | payer MEDICARE, SELFPAY ==
[2023-03-27] VITALS (8 sets, daily range): BP systolic 100–167; BP diastolic 49–74; PULSE 57–60; RESP 16; TEMP 36.6–36.9; O2SAT 91–97; BMI 23.6
[2023-03-27] MEDS: Lactated Ringers 1,000 ML 15 ML IV (13:14)
--- NOTE | 2023-03-27 13:53 | HP_ITS ---
Reason for Consultation: Anemia HPI Narrative: Chencho DALE, is a 77 F who is currently in the transitional care unit. She has been a regular blood donor until June 2022, was diagnosed with iron deficiency years earlier and has been on an oral iron supplement . August 2022 she was declined as a blood donor due to significant anemia.? She is unaware of any external blood loss but stool guaiacs performed at her PCP practice were + September 02, 2022. Work-up was consistent with chronic iron deficiency anemia.? She improved with iron supplementation. She did undergo an EGD and colonoscopy by Dr. Indira Chatman back in 2014 and did not show any etiology of her anemia at that time. 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 October 13 capsule endoscopy showed severe diffuse inflammation in the small bowel [facility] Medical History Abnormal ECG Acute bronchiolitis Anemia Anemia, normocytic normochromic Arthritis Asthma Chronic back pain Chronic blood loss anemia Dysarthria Essential hypertension, benign Fatigue Heart murmur Insomnia Mixed hyperlipidemia Multilevel degenerative disc disease Osteopenia Prosthetic aortic valve stenosis Shortness of breath on exertion Home Medications gabapentin 400 mg capsule 400 mg PO TIDCM PAIN 09/04/15 [History Last Taken 10/21/18 04:30] albuterol sulfate 90 mcg/actuation aerosol inhaler (ProAir HFA) 2 puff inhalation Q6H PRN PRN Asthma 08/17/18 [History Last Taken 09/01/18 04:00] cyclobenzaprine 5 mg tablet 5 mg PO BID PRN BACK SPASMS 08/17/18 [History Last Taken Unknown] loratadine 10 mg tablet (Allergy Relief (loratadine)) 10 mg PO DAILY ALLERGIES 08/17/18 [History Last Taken 10/21/18 04:30] montelukast 10 mg tablet (Singulair) 10 mg PO DAILY ALLERGIES 08/17/18 [History Last Taken Unknown] pantoprazole 40 mg tablet,delayed release 40 mg PO DAILY STOMACH ACID 08/17/18 [History Last Taken 09/01/18 04:00] trazodone 50 mg tablet 50 mg PO QHS SLEEP 08/17/18 [History Last Taken Unknown] ascorbic acid (vitamin C) 1,000 mg tablet (Vitamin C) 3,000 mg PO DAILY SUPPLEMENT 10/23/22 [History Last Taken Unknown] fluticasone furoate 200 mcg-vilanterol 25 mcg/dose inhalation powder (Breo Ellipta) 1 inh inhalation Q OTHER DAY Asthma 10/23/22 [History Last Taken Unknown] aspirin 81 mg chewable tablet 81 mg PO DAILY Heart 12/06/22 [History Last Taken 12/16/22] rosuvastatin 40 mg tablet 40 mg PO DAILY Cholesterol 01/29/23 [History Last Taken Unknown] multivitamin 1 tab PO DAILY Supplement 03/13/23 [History Last Taken Unknown] acetaminophen 500 mg tablet 1,000 mg PO Q6H PRN PRN Pain Score 1-10 #0 tabs 03/24/23 [Rx Last Taken Unknown] amiodarone 200 mg tablet 200 mg PO DAILY 30 days #30 tabs 03/24/23 [Rx Last Taken Unknown] furosemide 40 mg tablet 40 mg PO 0600,1400 #0 tabs 03/24/23 [Rx Last Taken Unknown] metoprolol succinate 50 mg tablet,extended release 24 hr 50 mg PO BID 30 days #60 tabs 03/24/23 [Rx Last Taken Unknown] polysaccharide iron complex 150 mg iron capsule (Ferrex) 150 mg PO BREAKFAST 30 days #30 caps 03/24/23 [Rx Last Taken Unknown] potassium chloride 20 mEq tablet,extended release(part/cryst) (Klor-Con M) 20 meq PO DAILYCM 30 days #30 tabs 03/24/23 [Rx Last Taken Unknown] Allergy/AdvReac Type Severity Reaction Status Date / Time No Known Allergies Allergy Verified 02/04/23 14:02 Family History Father Heart disease Brother Heart disease Mother Dementia Surgical History Cataract extraction status of eye (~2015) H/O foot surgery History of aortic valve replacement (~06/30/17) History of appendectomy History of bunionectomy History of tonsillectomy and adenoidectomy Total knee replacement status (~10/21/18) Social History (Updated 03/13/23 @ 20:[address] Gautam Chatterjee MD) household members: none Smoking Status: Never smoker alcohol intake: never substance use type: does not use caffeine: Yes (2-3/wk) Type: coffee ROS Constitutional Constitutional: Denies chills, fever(s) or weight gain ENT HEENT: Denies headache(s), nasal congestion or nasal discharge Cardiovascular Cardiovascular: Denies chest pain or palpitations Respiratory/Chest Respiratory/Chest: Denies cough, excessive phlegm production or shortness of breath with exertion Gastrointestinal Gastrointestinal: Denies abdominal pain, nausea or vomiting Genitourinary Genitourinary: Denies dysuria Musculoskeletal Musculoskeletal: Denies joint pain or joint swelling Integumentary Integumentary: Denies rash or wounds Neurologic Neurologic: Denies focal weakness, numbness or tingling Psychiatric Psychiatric: Denies anxiety, auditory hallucinations, depression, homicidal ideation or suicidal ideation Physical Exam Const alert General Appearance: cooperative HEENT normocephalic Eyes PERRL and EOMs intact bilaterally Neck supple, no JVD and no carotid bruits Resp normal respiratory effort, normal air movement and clear to auscultation bilaterally Cardio regular rate and regular rhythm GI normal to inspection, nondistended, normoactive bowel sounds, non-tender and non-distended Extremity normal capillary refill General Extremity: Negative for edema Skin no rashes or lesions noted General Skin Exam: no breakdown Psych affect normal Appearance: appropriate Lab / Micro Data Result Diagrams: 03/25/23 05:16 03/21/23 05:40 Assessment & Plan Assessment/Plan (1) Iron deficiency anemia: PLAN: The differential diagnosis for iron deficiency anemia does include Jaspal's erosions, gastric antral vascular ectasia, angiodysplasia, telangiectasia, small bowel inflammation, celiac disease. I will perform an upper endoscopy tomorrow and if that is negative she may need a colonoscopy. She is not on anticoagulation due to her history of atrial fibrillation rapid ventricular rate is. Currently this time normal sinus rhythm. She could be aspirin on a daily basis and we will hold that medication if any source of bleeding is found tomorrow. Charges/Coding Visit Charges Inpatient E&M: 53370 Init Hosp L2
--- NOTE | 2023-03-27 14:00 | EGD_PTH ---
PATIENT: Chencho DALE LOC: EN U#:[id number] AGE/SX: 77/F ROOM: RE03/27/[address]: Dr. Rosendo Hernandez DO : 1945 BED: DIS: 03/27/2023 SPEC #: [id number] RECD: 03/27/23 14:53 STATUS: HUNTER RECarol #: [id number] STAR: 03/27/23 14:[address]: Rosendo Hernandez DEPT: SURGICAL PATHOLOGY RECD BY: Catarina Woodruff ENTERED: 03/28/23 12:34 SP TYPE: EGD BIOPSY OT DR: Dr. Jackson Greer DO Tissues: A - Duodenum, NOS B - Esophagus, NOS Procedures: Special Stain Group II Surgery Specimen Level IV Alcian Blue/PAS (control) HEADER OPERATION: EGD ([facility] [place]) PRE-OP DIAGNOSIS: Anemia TISSUE SUBMITTED: A ? Duodenum bulb biopsy, B ? Distal esophagus biopsy MICROSCOPIC DIAGNOSIS A. Duodenal bulb, biopsy: Fragments of duodenal mucosa with gastric metaplasia and nonspecific chronic inflammation. B. Distal esophagus, biopsy: Fragments of gastroesophageal mucosa with chronic inflammation. Intestinal metaplasia (goblet cell metaplasia) not identified. See comment. ANDREA:evelyn 03/31/2023 COMMENT B. Alcian blue/PAS stain with matched control is used in the evaluation of the specimen. MICROSCOPIC DESCRIPTION Slides are reviewed. GROSS DESCRIPTION A - Received in fixative is one container labeled with the patient's name and designated duodenum bulb biopsy. The specimen consists of two irregular fragments of light hamilton soft tissue that in aggregate measure 0.6 x 0.3 x 0.1 cm. The specimen is totally submitted in one cassette. B - Received in fixative is one container labeled with the patient's name and designated distal esophagus biopsy. The specimen consists of two irregular fragments of light hamilton soft tissue that in aggregate measure 0.5 x 0.3 x 0.1 cm. The specimen is totally submitted in one cassette. / ANDREA:evelyn 03/28/2023 TC:3 CPT: 49848 x2, 39863
--- NOTE | 2023-03-27 14:52 | OP.EGD_ITS ---
Patient Name: Chencho Leblanc Procedure Date: 03/27/2023 2:17 PM Date of : 1945 Age: 77 Procedure: Upper GI endoscopy Indications: Iron deficiency anemia Providers: Rosendo Hernandez DO Medicines: Monitored Anesthesia Care Patient Profile: This is a 77 year old female. Refer to note in patient chart for documentation of history and physical. Patient has symptoms of chronic dyspepsia and chronic nausea. Complications: No immediate complications. Procedure: Pre-Anesthesia Assessment: - Prior to the procedure, a History and Physical was performed, and patient medications and allergies were reviewed. The risks and benefits of the procedure and the sedation options and risks were discussed with the patient. All questions were answered and informed consent was obtained. Patient identification and proposed procedure were verified by the physician in the pre-procedure area. Mental Status Examination: alert and oriented. Airway Examination: normal oropharyngeal airway and neck mobility. Respiratory Examination: clear to auscultation. CV Examination: normal. Prophylactic Antibiotics: The patient does not require prophylactic antibiotics. Prior Anticoagulants: The patient has taken no previous anticoagulant or antiplatelet agents. ASA Grade Assessment: II - A patient with mild systemic disease. After reviewing the risks and benefits, the patient was deemed in satisfactory condition to undergo the procedure. The anesthesia plan was to use monitored anesthesia care (MAC). Immediately prior to administration of medications, the patient was re-assessed for adequacy to receive sedatives. The heart rate, respiratory rate, oxygen saturations, blood pressure, adequacy of pulmonary ventilation, and response to care were monitored throughout the procedure. The physical status of the patient was re-assessed after the procedure. After obtaining informed consent, the endoscope was passed under direct vision. Throughout the procedure, the patient's blood pressure, pulse, and oxygen saturations were monitored continuously. The gastroscope was introduced through the mouth, and advanced to the second part of duodenum. The upper GI endoscopy was accomplished without difficulty. The patient tolerated the procedure well. Scope In: 2:32:58 PM Scope Out: 2:42:23 PM Total Procedure Duration Time 0 hours 9 minutes 25 seconds Findings: LA Grade B (one or more mucosal breaks greater than 5 mm, not extending between the tops of two mucosal folds) esophagitis with no bleeding was found 37 to 40 cm from the incisors. Biopsies were taken with a cold forceps for histology. Verification of patient identification for the specimen was done. Estimated blood loss was minimal. A large hiatal hernia was present. Multiple bleeding localized erosions were found in the gastric fundus. There were stigmata of recent bleeding. Coagulation for hemostasis using argon plasma at 0.3 liters/minute and 20 kent was successful. Estimated blood loss was minimal. Diffuse mild inflammation characterized by erythema was found in the entire examined stomach. Biopsies were taken with a cold forceps for histology. Verification of patient identification for the specimen was done. Estimated blood loss was minimal. Localized moderate inflammation characterized by congestion (edema) and granularity was found in the duodenal bulb. Biopsies were taken with a cold forceps for histology. Verification of patient identification for the specimen was done. Estimated blood loss was minimal. Impression: - LA Grade B reflux esophagitis. Biopsied. - Large hiatal hernia. - Gastric erosions with stigmata of recent bleeding. Treated with argon plasma coagulation (APC). - Chronic gastritis. Biopsied. - Duodenitis. Biopsied. Recommendation: - [facility] patient to [facility]. - Resume previous diet. - Continue present medications. - Await pathology results. - Pantoprazole 40 mg p.o. twice daily -She may need hiatal hernia surgery to fix iron deficiency anemia associated with the hiatal hernia and Jaspal's erosions Procedure Code(s): --- Professional --- 40816, 59, Esophagogastroduodenoscopy, flexible, transoral; with control of bleeding, any method 99360, Esophagogastroduodenoscopy, flexible, transoral; with biopsy, single or multiple CPT copyright 2017 [employer]. All rights reserved. The codes documented in this report are preliminary and upon vp analysis review may be revised to meet current compliance requirements. Rosendo Hernandez DO 03/27/2023 2:51:47 PM This report has been signed electronically. Number of Addenda: 0 Note Initiated On: 03/27/2023 2:17 PM
--- NOTE | 2023-03-27 14:52 | OP.CCLET_ITS ---
03/27/2023 Jackson Greer Re : Upper GI endoscopy procedure for Chencho Leblanc Bibiana Greer This procedure was performed on March. My impressions and recommendations are as follows: Impressions : - LA Grade B reflux esophagitis. Biopsied. - Large hiatal hernia. - Gastric erosions with stigmata of recent bleeding. Treated with argon plasma coagulation (APC). - Chronic gastritis. Biopsied. - Duodenitis. Biopsied. Recommendations : - Return patient to [facility] care. - Resume previous diet. - Continue present medications. - Await pathology results. - Pantoprazole 40 mg p.o. twice daily -She may need hiatal hernia surgery to fix iron deficiency anemia associated with the hiatal hernia and Jaspal's erosions My findings are described in the full procedure note, which is enclosed. If I can be of further assistance, please feel free to contact me at . Sincerely, Rosendo Hernandez, 03/27/2023 2:51:47 PM This report has been signed electronically.
== END 2023-03-27 16:13 | disposition skilled nursing facility (03) ==
LOC: EN 17:08 → AC 17:09
PROVIDERS: PCP Family Medicine; Referring Provider Family Medicine; Visit Provider Internal Medicine Gastroenterology
PROC: 0DJ08ZZ Inspection of Upper Intestinal Tract, Via Natural or Artificial Opening Endoscopic (ICD-10-PCS; CPT 43235; principal; 2023-03-27 13:55)
DX: K44.9 Diaphragmatic hernia without obstruction or gangrene (principal); K29.80 Duodenitis without bleeding; E78.2 Mixed hyperlipidemia; I10 Essential (primary) hypertension; D50.9 Iron deficiency anemia, unspecified; K29.50 Unspecified chronic gastritis without bleeding; K25.4 Chronic or unspecified gastric ulcer with hemorrhage; K21.00 Gastro-esophageal reflux disease with esophagitis, without bleeding; J45.909 Unspecified asthma, uncomplicated; Z79.82 Long term (current) use of aspirin
CPT/HCPCS: 43239; 43255; 88305; 88313; J7120

== ENCOUNTER → 2023-12-09 | Outpatient (CLI) | payer MEDICARE, SELFPAY ==
--- NOTE | 2023-12-09 13:51 | ECHOD_ITS ---
Reason For Study: VALVE REPLACEMENT EVAL Procedure This was a 2D Doppler, Color Flow transthoracic echocardiogram. Exam performed in department. Left Ventricle Normal LV size. Left ventricular systolic function is normal. The estimated ejection fraction is 65 %. Stage 1 diastolic dysfunction. No regional wall motion abnormalities noted. Right Ventricle Normal RV size. Normal systolic function. Atria Normal left atrium. Normal right atrium. Mitral Valve Normal mitral valve. Tricuspid Valve Normal tricuspid valve. Mild to moderate (1-2+) tricuspid valve insufficiency. Pulmonary artery systolic pressure is 46 mmHg. Mild pulmonary hypertension. An annuloplasty ring is noted in the tricuspid position. Aortic Valve Bioprosthetic aortic valve. Pulmonic Valve Normal pulmonic valve. Great Vessels Normal aortic root. The pulmonary artery is normal size. Inferior vena cava collapse with respiration. Pericardium/Pleural No pericardial effusion. MMode/2D Measurements & Calculations LVIDd: 4.3 cm IVSd: 0.99 cm Ao root diam: 2.2 cm LVIDs: 2.6 cm LVPWd: 0.94 cm RVDd: 2.9 cm FS: 39.6 % LAV(MOD-bp): 60.3 ml LVAd ap4: 19.8 cm2 LVAd ap2: 15.4 cm2 LAV(MOD-bp) Indexed: 40.6 ml/m2 LVLd ap4: 6.4 cm LVLd ap2: 5.8 cm LAV(MOD-sp2): 60.1 ml EDV(MOD-sp4): 51.0 ml EDV(MOD-sp2): 33.9 ml LAV(MOD-sp4): 60.0 ml EDV(sp4-el): 52.4 ml EDV(sp2-el): 34.7 ml LVAs ap4: 9.4 cm2 LVAs ap2: 8.0 cm2 LVLs ap4: 4.9 cm LVLs ap2: 4.7 cm ESV(MOD-sp4): 14.7 ml ESV(MOD-sp2): 11.8 ml ESV(sp4-el): 15.2 ml ESV(sp2-el): 11.4 ml EF(MOD-sp4): 71.2 % EF(MOD-sp2): 65.2 % EF(sp4-el): 71.1 % SV(MOD-sp4): 36.4 ml SV(MOD-sp2): 22.1 ml SV(sp4-el): 37.2 ml LA dimension(2D): 4.9 cm LA A4 area: 20.0 cm2 RA A4 area: 12.0 cm2 TAPSE: 1.4 cm Time Measurements MV dec time: 0.19 sec Doppler Measurements & Calculations MV E max sebas: 89.8 cm/sec Lat Peak E' Sebas: 9.4 cm/sec Med Peak E' Sebas: 4.5 cm/sec MV A max sebas: 110.7 cm/sec E/E' lat: 9.6 E/E' med: 20.1 MV E/A: 0.81 MV V2 max: 124.0 cm/sec MV dec slope: 476.1 cm/sec2 Ao V2 max: 196.6 cm/sec MV max P.2 mmHg Ao max P.6 mmHg MV V2 mean: 73.8 cm/sec Ao V2 mean: 136.1 cm/sec MV mean P.5 mmHg Ao mean P.4 mmHg MV V2 VTI: 32.5 cm Ao V2 VTI: 44.9 cm AV (velocity ratio): 0.61 LV V1 max: 125.2 cm/sec PA V2 max: 73.1 cm/sec TR max sebas: 326.9 cm/sec LV V1 max P.3 mmHg PA V2 mean: 53.1 cm/sec TR max P.7 mmHg LV V1 mean P.2 mmHg LV V1 mean: 83.9 cm/sec LV V1 VTI: 27.5 cm ECHO/Echo Complete Interpretation Summary Normal LV size. Left ventricular systolic function is normal. The estimated ejection fraction is 65 %. Stage 1 diastolic dysfunction. Pulmonary artery systolic pressure is 46 mmHg. Mild pulmonary hypertension. Bioprosthetic aortic valve. Ordering Physician: Marilynn Wolfe Referring Physician: Jackson Greer Performed By: Francesca Kirk, RADHA, RVT
== END | disposition home or self-care (01) ==
PROVIDERS: PCP Family Medicine; Referring Provider Nurse Practitioner Gerontology; Visit Provider Nurse Practitioner Gerontology
DX: Z95.2 Presence of prosthetic heart valve (principal)
CPT/HCPCS: 93306

== ENCOUNTER → 2024-06-02 | Outpatient (CLI) | payer MEDICARE, SELFPAY ==
[2024-06-02 11:01] LABS: Absolute Lymphocyte Count 2.12 X10^3/uL (0.83-4.51); Absolute Neutrophil Count 3.9 X10^3/uL (2.0-7.7); Basophil# 0.04 X10^3/uL; Basophil% 0.5 % (0-1); Eosinophil# 0.26 X10^3/uL; Eosinophils% 3.5 % (0-5); Hematocrit 39.8 % (37-47); Hemoglobin 12.8 g/dL (12.0-15.0); Lymphocyte # 2.12 X10^3/ul (0.83-4.51); Lymphocyte % 28.6 % (19-41); Mean Corp Hgb Conc 32.2 g/dL (32-36); Mean Corpuscular Hgb 30.4 pg (27.0-32.0); Mean Corpuscular Volume 94.5 fL (81-99); Mean Platelet Vol. 10.4 fl (6.2-12.0); Monocyte# 1.06 X10^3/uL; Monocyte% 14.3 % (0-10); NRBC Flagged by Analyzer 0 % (0-5); Neutrophil # 3.91 X10^3/uL (2.7-7.7); Neutrophil % 52.8 % (47-70); Platelet Count 145 K/mm3 (150-450); RBC Distribution Width CV 14.2 % (11.6-14.6); RBC Distribution Width SD 49.4 fl (35.1-43.9); Red Blood Count 4.21 M/mm3 (4.2-5.4); White Blood Count 7.4 K/mm3 (4.4-11.0)
[2024-06-02 11:53] LABS: AST(SGOT) 29 U/L (15-37); Alanine Aminotransfer ALT/SGPT 27 U/L (13-56); Albumin, Serum 3.4 g/dL (3.2-5.0); Alkaline Phosphatase 61 U/L (45-117); Anion Gap 5 (5-15); BUN 18 mg/dL (7-18); Calcium,Total 9.1 mg/dL (8.5-10.1); Chloride 107 mmol/L (98-107); Cholesterol 140 mg/dL (200); Creatinine, Serum 0.82 mg/dL (0.55-1.02); EST Glomerular Filtration Rate 71 mL/min (>60); Est Glom Filt Rate - Afr Amer 86 mL/min (>60); Globulin 3.4 g/dL (2.2-4.2); Glucose 94 mg/dL (74-106); High Density Lipoprotein 58 mg/dL; Potassium 4.2 mmol/L (3.5-5.1); Protein, Total 6.8 g/dL (6.4-8.2); Sodium Level 139 mmol/L (136-145); Triglycerides 142 mg/dL; Very Low Density Lipoprotein 28 mg/dL (5-40)
== END | disposition home or self-care (01) ==
PROVIDERS: PCP Family Medicine; Referring Provider Physician Assistant Medical; Visit Provider Physician Assistant Medical
DX: E78.2 Mixed hyperlipidemia (principal); I10 Essential (primary) hypertension; Z95.2 Presence of prosthetic heart valve
CPT/HCPCS: 36415; 80053; 80061; 85025

== ENCOUNTER → 2025-07-21 | Outpatient (CLI) | payer MEDICARE, SELFPAY ==
[2025-07-21 14:59] LABS: AST(SGOT) 44 U/L (<=31); Alanine Aminotransfer ALT/SGPT 30 U/L (<=34); Albumin, Serum 4.2 g/dL (3.4-4.8); Alkaline Phosphatase 82 U/L (35-104); Bilirubin, Direct 0.23 mg/dL (0.00-0.30); Cholesterol 123 mg/dL (<=200); Globulin 2.6 g/dL (2.2-4.2); Low Density Lipoprotein Calc. 39 mg/dL; Triglycerides 127 mg/dL; Very Low Density Lipoprotein 25 mg/dL (5-40); cholesterol:hdl ratio screen 2.09
== END | disposition home or self-care (01) ==
LOC: LAB 13:27
PROVIDERS: PCP Family Medicine; Referring Provider Nurse Practitioner Gerontology; Visit Provider Nurse Practitioner Gerontology
DX: E78.2 Mixed hyperlipidemia (principal)
CPT/HCPCS: 36415; 80061; 80076

== ENCOUNTER → 2025-08-16 | Outpatient (CLI) | payer MEDICARE, SELFPAY ==
--- NOTE | 2025-08-16 08:53 | ECHOD_ITS ---
Reason For Study Reason For Study: Valve Replacement Eval Procedure This was a 2D Doppler, Color Flow transthoracic echocardiogram. Exam performed in department. Left Ventricle Normal LV size. Left ventricular systolic function is normal. The left ventricular ejection fraction is 65 %. No regional wall motion abnormalities noted. Right Ventricle Normal RV size. Normal systolic function. Atria Normal left atrium. Normal right atrium. Mitral Valve Normal mitral valve. Tricuspid Valve Normal tricuspid valve. Mild (1+) tricuspid valve insufficiency. Pulmonary artery systolic pressure is 36 mmHg. Aortic Valve Peak aortic valve gradient 27 mmHg. Mean aortic valve gradient 14 mmHg. Bioprosthetic aortic valve. Pulmonic Valve Normal pulmonic valve. Great Vessels Normal aortic root. The pulmonary artery is normal size. Normal inferior vena cava. Pericardium/Pleural No pericardial effusion. MMode/2D Measurements & Calculations LVIDd: 3.6 cm IVSd: 1.0 cm LVOT diam: 2.0 cm LVIDs: 1.9 cm LVPWd: 0.95 cm LVOT area: 3.1 cm2 RVDd: 3.3 cm FS: 47.9 % Ao root diam: 3.1 cm LAV(MOD-bp): 41.4 ml LVAd ap4: 20.4 cm2 LAV(MOD-bp) Indexed: 27.9 ml/m2 LVLd ap4: 6.4 cm LAV(MOD-sp2): 33.8 ml EDV(MOD-sp4): 55.6 ml LAV(MOD-sp4): 50.4 ml EDV(sp4-el): 54.9 ml LVAs ap4: 10.3 cm2 LVLs ap4: 5.1 cm ESV(MOD-sp4): 17.9 ml ESV(sp4-el): 17.7 ml EF(MOD-sp4): 67.8 % EF(sp4-el): 67.9 % SV(MOD-sp4): 37.7 ml SV(sp4-el): 37.3 ml LA A4 area: 17.7 cm2 SI(MOD-sp4): 25.4 ml/m2 LA dimension(2D): 4.9 cm RA A4 area: 15.7 cm2 TAPSE: 1.8 cm Time Measurements MV dec time: 0.19 sec Doppler Measurements & Calculations MV E max sebas: 113.8 cm/sec Lat Peak E' Sebas: 6.2 cm/sec Med Peak E' Sebas: 5.6 cm/sec MV A max sebas: 97.1 cm/sec E/E' lat: 18.4 E/E' med: 20.3 MV E/A: 1.2 MV V2 max: 135.1 cm/sec Ao V2 max: 258.4 cm/sec MV max P.3 mmHg MV dec slope: 609.7 cm/sec2 Ao max P.8 mmHg MV V2 mean: 68.3 cm/sec Ao V2 mean: 173.6 cm/sec MV mean P.4 mmHg Ao mean P.9 mmHg MV V2 VTI: 39.7 cm Ao V2 VTI: 60.0 cm AV (velocity ratio): 0.44 MVA(VTI): 2.1 cm2 SONIYA(I,D): 1.4 cm2 SONIYA(V,D): 1.3 cm2 LV V1 max: 111.5 cm/sec SV(LVOT): 82.0 ml PA V2 max: 70.1 cm/sec LV V1 max P.0 mmHg LV V1 mean P.7 mmHg LV V1 mean: 79.1 cm/sec LV V1 VTI: 26.4 cm PI end-d sebas: 100.9 cm/sec TR max sebas: 288.0 cm/sec TR max P.2 mmHg ECHO/Echo Complete Interpretation Summary Normal LV size. Left ventricular systolic function is normal. The left ventricular ejection fraction is 65 %. Pulmonary artery systolic pressure is 36 mmHg. Bioprosthetic aortic valve. Mean aortic valve gradient 14 mmHg. Ordering Physician: Marilynn Wolfe Referring Physician: Titus Rao Performed By: Shital Rush, RADHA, RVT
== END | disposition home or self-care (01) ==
LOC: CVS 08:52
PROVIDERS: PCP Family Medicine; Referring Provider Nurse Practitioner Gerontology; Visit Provider Nurse Practitioner Gerontology
DX: R01.1 Cardiac murmur, unspecified (principal); T82.857A Stenosis of other cardiac prosthetic devices, implants and grafts, initial encounter
CPT/HCPCS: 93306

== ENCOUNTER → 2025-09-05 | Outpatient (CLI) | payer MEDICARE, SELFPAY ==
[2025-09-05 13:43] LABS: Hematocrit 38.2 % (37-47); Hemoglobin 12.2 g/dL (12.0-15.0); Immature Granulocytes Count 0.010 X10^3/uL (0.0-0.0); Mean Corp Hgb Conc 31.9 g/dL (32-36); Mean Corpuscular Volume 94.8 fL (81-99); Mean Platelet Vol. 10.3 fl (6.2-12.0); NRBC Flagged by Analyzer 0 % (0-5); Platelet Count 230 K/mm3 (150-450); RBC Distribution Width CV 15.3 % (11.6-14.6); RBC Distribution Width SD 53.1 fl (35.1-43.9); Red Blood Count 4.03 M/mm3 (4.2-5.4); White Blood Count 8.1 K/mm3 (4.4-11.0)
[2025-09-10 01:06] LABS: Ash, White <0.10 kU/L (Class 0); Black Walnut <0.10 kU/L (Class 0); Cat Hair / Dander,Stand <0.10 kU/L (Class 0); Cedar, Mountain <0.10 kU/L (Class 0); Cockroach, American <0.10 kU/L (Class 0); Dog Epithelia <0.10 kU/L (Class 0); Elm, American White <0.10 kU/L (Class 0); Mulberry, White <0.10 kU/L (Class 0); Oak, White <0.10 kU/L (Class 0); Pigweed, Rough <0.10 kU/L (Class 0); Ragweed, Short/Common 1.17 kU/L (Class II); Sycamore, American <0.10 kU/L (Class 0)
[2025-09-14 16:10] LABS: Aspirgillus flavus Negative (Neg:<1:1); Aspirgillus fumigatus Negative (Neg:<1:1); Aspirgillus niger Negative (Neg:<1:1); Cytoplasmic Ab (C-ANCA) <1:20 titer (Neg:<1:20); Perinuclear Ab (P-ANCA) 1:20 titer (Neg:<1:20)
== END | disposition home or self-care (01) ==
LOC: PAVLAB 13:26
PROVIDERS: PCP Family Medicine; Referring Provider Internal Medicine Critical Care Medicine; Visit Provider Internal Medicine Critical Care Medicine
DX: J45.909 Unspecified asthma, uncomplicated (principal)
CPT/HCPCS: 36415; 82785; 85025; 86003; 86037; 86606

== ENCOUNTER → 2025-09-28 | Outpatient (CLI) | payer MEDICARE, SELFPAY ==
--- NOTE | 2025-09-28 09:11 | VDLE_ITS ---
Reason For Study VL/Venous Duplex US - Cesar Extrem
--- NOTE | 2025-09-28 09:11 | ART_ITS ---
Reason For Study VL/Lower Ext Art Exam w/o Exercis
== END | disposition home or self-care (01) ==
LOC: CVS 09:08
PROVIDERS: PCP Family Medicine; Referring Provider Podiatrist Foot & Ankle Surgery; Visit Provider Podiatrist Foot & Ankle Surgery
DX: I73.89 Other specified peripheral vascular diseases (principal); M79.605 Pain in left leg; M79.604 Pain in right leg
CPT/HCPCS: 93923; 93970